=== PATIENT | female | born 1940 ===

== ENCOUNTER 2020-07-03 16:38 | Outpatient (REF) | payer MEDICARE, SELFPAY ==
--- NOTE | 2020-07-03 17:04 | XR_ITS ---
EXAMINATION: XR CHEST CLINICAL INFORMATION: Cough COMPARISON: CXR from 10/12/2019 TECHNIQUE: 2 views of the chest were obtained. FINDINGS: Lungs are symmetrically hypoinflated. This results in crowding of bronchovascular structures in lower lung zones. There are linear opacities of mild atelectasis in the bases. No consolidation or pleural effusion. Cardiac silhouette is normal in size. Dextroscoliosis of the degenerated, hyperkyphotic thoracic spine. Chronic osteoarthritis of bilateral glenohumeral joints. IMPRESSION: * No acute abnormality compared to the prior chest radiograph from 10/12/2019. * Lungs are hypoinflated and, as result, interstitium is suboptimally evaluated. * Linear opacities of mild atelectasis are present in the bases.
--- NOTE | 2020-07-03 17:04 | XR_ITS ---
EXAMINATION: XR FOREARM, LEFT CLINICAL INFORMATION: Unspecified open wound of unspecified forearm. COMPARISON: None TECHNIQUE: AP and lateral views of the left forearm were obtained. FINDINGS: There is no evidence of osseous destruction or periosteal reaction. Normal osseous mineralization. The osseous structures are unremarkable. Elbow joint and wrist joint alignments are maintained with mild degenerative changes. Somewhat H-shaped 0.9 cm opacity is noted projecting over the anterior soft tissue in the mid forearm, on the radial side. No soft tissue air. IMPRESSION: No radiographic evidence of osteomyelitis in the left forearm. No acute fracture or dislocation. Somewhat H-shaped opacity noted projecting over the anterior radial soft tissue may represent a foreign body or vascular/dystrophic calcifications. Recommend clinical correlation.
== END 2020-07-03 16:39 | disposition home or self-care (01) ==
LOC: HO.XRAY 16:38
PROVIDERS: PCP Internal Medicine; Visit Provider Physician Assistant
DX: S51.809A Unspecified open wound of unspecified forearm, initial encounter (principal); R05 Cough
CPT/HCPCS: 71046; 73090

== ENCOUNTER 2020-07-09 12:44 | Outpatient (RCR) | payer MEDICARE, SELFPAY | END 2020-09-05 13:34 | disposition home or self-care (01) | LOC: HO.WCC 12:44 | PROVIDERS: PCP Internal Medicine; Visit Provider Physician Assistant | DX: Z09 Encounter for follow-up examination after completed treatment for conditions other than malignant neoplasm (principal) | CPT/HCPCS: 11042; 11044; 17250; 99212; 99213 ==

== ENCOUNTER 2020-09-26 13:03 | Outpatient (REF) | payer MEDICARE, SELFPAY ==
--- NOTE | 2020-09-26 13:08 | MM_ITS ---
EXAMINATION: MM DIAGNOSTIC DIGITAL MAMMOGRAPHY, BILATERAL US DIAGNOSTIC ULTRASOUND BREAST, LEFT CLINICAL INFORMATION: Current exam is bilateral short interval follow-up. Benign outside upright stereotactic biopsy left breast since prior mammography 2019. Additional calcifications left breast for follow-up. Prior history right mastitis, right symptoms resolved since prior mammography. Currently on antibiotics for new inflammatory symptoms anterior 6:00 left breast. Patient has appointment with surgeon for additional management. The lifetime risk of breast cancer based on the Tyrer-Cuzick Model is 1%. COMPARISON: Mammography: 04/06/2020 (baseline diagnostic), targeted right breast ultrasound 04/06/2020. TECHNIQUE: Digital breast tomosynthesis is performed in both the craniocaudal and mediolateral oblique views along with computer-aided detection (CAD). Synthesized 2D images are generated from the tomosynthesis. Additional views are obtained: Left CC, magnification left CC, magnification left LM. Patient with difficulty holding still for some mammographic images, similar to prior experience. Exam tailored to patient capabilities. Ultrasound left breast is targeted to the area of clinical concern anterior inferior breasts. Grayscale imaging is performed along with harmonics and color Doppler. FINDINGS: There are scattered areas of fibroglandular density (ACR BI-RADS breast composition Category b). Parenchymal pattern is similar to prior exam. There is no interval mass or architectural abnormality or abnormal calcifications. Numerous bilateral calcifications are again seen. There is an old biopsy clip marker posterior central left breast and a new biopsy clip marker posterior upper inner left breast. The left breast calcifications for follow-up posterior central breast appears similar to prior diagnostic exam and will be reassessed again at time of annual bilateral mammography, due in 6 months. Ultrasound targeted to the area of clinical concern anterior inferior left breast demonstrates focal skin thickening with intradermal decreased echogenicity at site of clinical symptoms 6:00 position 4 cm from nipple. The area of involvement measures 3 mm in thickness by 8 x 14 mm. There is hyperemia in the hypoechoic area on color Doppler. There is no subdermal extension. No focal duct ectasia or edema tracking in soft tissue planes. Results are discussed with the patient at time of visit. MM/MM tomosynthesis diagnostic BI IMPRESSION: LEFT -Left breast calcifications for follow-up are stable. -Focal intradermal inflammation at site of symptoms 6:00 position measures 3 x 8 x 14 mm. No subdermal extension. No breast parenchymal abscess. RIGHT: -No mammographic evidence of malignancy. ASSESSMENT: BI-RADS 3: Probably Benign RECOMMENDATION: 1. Clinical follow-up for the anterior left breast intradermal inflammation. Patient has appointment with surgeon. 2. Magnification views left breast at time of annual bilateral mammography due in 6 months to follow-up the probable benign left breast calcifications. This patient's information was entered into a reminder system with a target due date for their next mammogram.
== END 2020-09-26 13:04 | disposition home or self-care (01) ==
LOC: HO.MAMMO 13:03
PROVIDERS: PCP Internal Medicine; Visit Provider Internal Medicine
DX: N61.1 Abscess of the breast and nipple (principal)
CPT/HCPCS: 76642; 77062; 77066

== ENCOUNTER → 2020-10-03 13:53 | Outpatient (BNVA) | payer MEDICARE, SELFPAY | PROVIDERS: PCP Internal Medicine; Visit Provider Surgery | DX: N61.1 Abscess of the breast and nipple (principal) | CPT/HCPCS: 99212 ==

== ENCOUNTER 2020-10-22 06:00 | Day surgery (SDC) | payer MEDICARE, SELFPAY ==
[2020-10-16 11:49] VITALS: BMI 39.9
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
[2020-10-22] VITALS (7 sets, daily range): BP systolic 122–151; BP diastolic 55–69; PULSE 76–84; RESP 16–20; TEMP 36.1–36.7; O2SAT 95–100
[2020-10-22 06:54] LABS: Glucose, Whole Blood 135 mg/dL (60-115)
[2020-10-22] MEDS: Lactated Ringers 1,000 ML 100 ML IVCONT (07:02)
[2020-10-22] MEDS: vancomycin HCL 1,000 MG in 0.9 % Sodium Chloride 250 ML 270 MG IV (07:14)
--- NOTE | 2020-10-22 07:35 | MHC.SHP ---
Pre-Procedural Eval Section A The patient is an INPATIENT: No Changes since office visit: Yes Patient answered all questions; No Cold of Flu in the past 2 weeks, No New Medical Problems and No Changes in Medication The History & Physical has been completed within 30 days and I have reviewed it.: Yes Section B Chief Complaint: Left Breast Abscess Allergies: Allergies Allergy/AdvReac Type Severity Reaction Status Date / Time Penicillins [PENICILLINS] Allergy Unknown UNKNOWN Verified 10/16/20 11:34 Plan Diagnosis/Plan: Unchanged I have reviewed the history and physical and performed a pertinent physical examination on my patient. No changes have occurred unless specified.
--- NOTE | 2020-10-22 08:08 | P.BOP_ITS ---
Brief Operative Note Date of Service: 10/22/20 Pre-op diagnosis: Left breast cyst Post-op diagnosis: same Procedure: Excision of left breast cyst Implants: none Surgeon: Damian Glass MD Anesthesia: GLMA [employer] Handicapper: Niharika Escobar Estimated blood loss (mL): 2 Pathology: other (left breast cyst) Condition: stable Disposition: PACU
--- NOTE | 2020-10-22 08:13 | W.PM.OPN ---
Operative Note Operative Note Date of Service: 10/22/20 Narrative: Preoperative diagnosis: Left breast cyst Postoperative diagnosis: Same Procedure: Excision of left breast skin cyst Surgeon: Damian Glass MD Owner Consulting Engineer: Niharika Escobar PA-C Anesthesia: General LMA Indications for procedure: 80-year-old female patient with history of recurrent skin infections involving the 6 o'clock position of the left breast with persistent drainage from this location. On examination patient has an epidermal inclusion cyst at the 6 o'clock position just below the nipple-areolar complex. The cyst measures approximately 1.5 cm in diameter. Operative findings: Patient is found to have a chronically inflamed cyst in the 6 o'clock position of the left breast. This was widely excised and closed primarily. There is no evidence of active infection at this time. Specimen: Left breast skin cyst Estimated blood loss: 2 mL Complications: None Procedure details: Patient was brought to the OR placed in a supine position. After administering general anesthesia the patient's left breast was prepped with ChloraPrep and draped in a sterile fashion. A surgical time-out was called the consent confirmed. Patient received preoperative antibiotics and Venodyne boots were in place. Local anesthesia consisting of 0.25% Sensorcaine with epinephrine was infiltrated around the cyst in the 6 o'clock position. An elliptical incision was created with a 15 blade oriented transversely. Electrocautery was then used to dissect the lesion from the surrounding subcutaneous tissue. The lesion was passed off the table and sent to pathology for further examination. Hemostasis was then assured using electrocautery. The wounds were irrigated with saline solution and suctioned dry. Dermis was then reapproximated using interrupted 3-0 Polysorb sutures. Skin was then closed using a running subcuticular 4 0 Polysorb suture. Sterile dressings consisting of Steri-Strips 2 x 2 gauze and Tegaderm were then applied. The patient tolerated procedure well. Sponge, instrument, needle counts reported as correct. Patient was transferred to PACU in stable condition.
== END 2020-10-22 09:47 | disposition home or self-care (01) ==
PROVIDERS: PCP Internal Medicine; Visit Provider Surgery
PROC: (CPT 19120; principal; 2020-10-22 07:30)
DX: N60.02 Solitary cyst of left breast (principal); E11.9 Type 2 diabetes mellitus without complications; F03.90 Unspecified dementia, unspecified severity, without behavioral disturbance, psychotic disturbance, mood disturbance, and anxiety; E55.9 Vitamin D deficiency, unspecified; Z79.84 Long term (current) use of oral hypoglycemic drugs; Z79.899 Other long term (current) drug therapy; Z96.653 Presence of artificial knee joint, bilateral; Z91.81 History of falling; Z88.0 Allergy status to penicillin; Z87.891 Personal history of nicotine dependence
CPT/HCPCS: 19120; 82947; 88304; 88305; 88312; J0131; J2405; J3010; J3370

== ENCOUNTER → 2020-10-30 08:56 | Outpatient (BNVA) | payer MEDICARE, SELFPAY | PROVIDERS: PCP Internal Medicine; Visit Provider Surgery | DX: N61.1 Abscess of the breast and nipple (principal) | CPT/HCPCS: 99212 ==

== ENCOUNTER 2020-11-08 10:10 | Outpatient (REF) | payer MEDICARE, SELFPAY ==
[2020-11-08 11:43] LABS: Alanine Aminotransferase 10 U/L (0-31); Albumin Level 4.2 g/dL (3.5-5.0); Alkaline Phosphatase 66 U/L (39-117); Anion Gap 10 (12-20); Aspartate Amino Transferase 14 U/L (5-31); Bilirubin Total 0.4 mg/dL (0.0-1.0); Blood Urea Nitrogen 9 mg/dL (9-16); Calcium 9.1 mg/dL (8.4-10.2); Carbon Dioxide 33 mmol/L (22-29); Chloride 103 mmol/L (96-108); Cholesterol 198 mg/dL; Estimated Glomerular Filt Rate 55; Glucose Fasting 99 mg/dL (60-99); HDL Cholesterol 58 mg/dL; LDL Cholesterol Calculated 112 mg/dl; Potassium 4.1 mmol/L (3.3-5.1); Sodium 142 mmol/L (135-145); Total Protein 6.9 g/dL (6.5-8.0); Triglycerides 141 mg/dL
[2020-11-08 12:02] LABS: Glucose Urine UA NEG (NEG); Leukocyte Esterase Urine 3+ (NEG); Nitrite Urine POS (NEG); PH 6.5 (5.0-8.0); Specific Gravity - Urine 1.015 (1.005-1.025); Urine Blood TRACE (NEG); Urine Ketones NEG (NEG); Urine Protein NEG (NEG-TRACE)
[2020-11-08 12:03] LABS: Appearance Urine CLOUDY; Color Urine YELLOW
[2020-11-08 12:15] LABS: Bacteria Urine 3+ /LPF; Squamous Epithelial Cell Urine 2+ /LPF; WBC Urine TNTC /HPF (0-4)
== END 2020-11-08 10:11 | disposition home or self-care (01) ==
LOC: HO.LAB 10:10
PROVIDERS: PCP Internal Medicine; Visit Provider Nurse Practitioner Family
DX: E11.9 Type 2 diabetes mellitus without complications (principal); E78.5 Hyperlipidemia, unspecified; N39.0 Urinary tract infection, site not specified
CPT/HCPCS: 36415; 80053; 80061; 81001; 81003

== ENCOUNTER 2021-01-15 08:46 | Outpatient (REF) | payer MEDICARE, SELFPAY ==
[2021-01-15 09:19] LABS: MANUAL DIFF FLAG NO
[2021-01-15 09:33] LABS: Basophils Percent Auto 0.4 % (0-2); Eosinophils Absolute Auto 0.5 X10*3/uL (0.0-0.4); Eosinophils Percent Auto 7.1 % (0-4); Hematocrit 36.4 % (37-47); Hemoglobin 11.2 g/dl (12.0-16.0); Imm Gran Abs Auto 0.02 X10*3/uL (0.00-0.03); Imm Gran Pct Auto 0.3 % (0.0-0.4); Lymphocytes Absolute Auto 2.6 X10*3/uL (1.2-4.9); Mean Corpuscular HGB Conc 30.8 g/dl (31.0-35.0); Mean Corpuscular Hemoglobin 28.6 pg (27.0-33.0); Mean Corpuscular Volume 93.1 fL (80-98); Mean Platelet Volume 9.8 fL (9.4-12.3); Monocytes Absolute Auto 0.6 X10*3/uL (0.1-1.2); Monocytes Percent Auto 8.5 % (2-11); NRBC Pct Auto 0.3 /100WBC (0.0-0.2); Neutrophils Absolute Auto 3.3 X10*3/uL (2.0-8.3); Neutrophils Percent Auto 46.7 % (45-73); Platelet Count 293 X10*3/uL (160-400); Red Blood Count 3.91 X10*6/uL (4.20-5.50); White Blood Count 7.1 X10*3/uL (4.8-10.8)
[2021-01-15 09:49] LABS: Alanine Aminotransferase 66 U/L (0-31); Albumin Level 3.9 g/dL (3.5-5.0); Alkaline Phosphatase 115 U/L (39-117); Anion Gap 12 (12-20); Aspartate Amino Transferase 20 U/L (5-31); Bilirubin Total 0.4 mg/dL (0.0-1.0); Blood Urea Nitrogen 17 mg/dL (9-16); Calcium 9.2 mg/dL (8.4-10.2); Carbon Dioxide 31 mmol/L (22-29); Chloride 103 mmol/L (96-108); Cholesterol 173 mg/dL; Estimated Glomerular Filt Rate 45; Glucose Fasting 114 mg/dL (60-99); HDL Cholesterol 46 mg/dL; LDL Cholesterol Calculated 102 mg/dl; Potassium 4.8 mmol/L (3.3-5.1); Sodium 141 mmol/L (135-145); Total Protein 6.7 g/dL (6.5-8.0); Triglycerides 126 mg/dL
[2021-01-15 12:16] LABS: Creatinine Urine 82.08 mg/dL; Microalbum/Creatinine Ratio Ur 12.1 ug/mg cr
[2021-01-16 17:21] LABS: NT-proBNP 60 pg/mL
[2021-01-19 16:52] LABS: Vitamin D 25-OH, D2 39 ng/mL; Vitamin D 25-OH, D3 13 ng/mL; Vitamin D 25-OH, Total 52 ng/mL (30-100)
== END 2021-01-15 08:47 | disposition home or self-care (01) ==
LOC: HO.LAB 08:46
PROVIDERS: PCP Internal Medicine; Visit Provider Internal Medicine
DX: E78.5 Hyperlipidemia, unspecified (principal); E55.9 Vitamin D deficiency, unspecified; D64.9 Anemia, unspecified; R60.0 Localized edema; I10 Essential (primary) hypertension; E11.9 Type 2 diabetes mellitus without complications
CPT/HCPCS: 36415; 80053; 80061; 82043; 82306; 83880; 85025

== ENCOUNTER 2021-04-17 14:05 | Outpatient (RCR) | payer MEDICARE, SELFPAY | END 2021-05-07 15:08 | disposition home or self-care (01) | LOC: HO.WCC 14:05 | PROVIDERS: PCP Internal Medicine; Visit Provider Surgery | DX: S50.852D Superficial foreign body of left forearm, subsequent encounter (principal) | CPT/HCPCS: 11106; 11107; 88305; 88312; 99212; 99214 ==

== ENCOUNTER 2021-04-29 14:11 | Outpatient (REF) | payer MEDICARE, SELFPAY ==
--- NOTE | ~2021-04-29 | MM_ITS ---
EXAMINATION: MM DIAGNOSTIC DIGITAL BREAST TOMOSYNTHESIS, BILATERAL CLINICAL INFORMATION: Benign outside upright stereotactic biopsy left breast. Additional calcifications left breast for follow-up, or initially noted at new baseline 04/06/2020. Due for yearly. TC score under 2%. COMPARISON: Mammography: 09/26/2020, 04/06/2020 (new baseline). TECHNIQUE: Digital breast tomosynthesis is performed in both the craniocaudal and mediolateral oblique views along with computer-aided detection (CAD). Synthesized 2D images are generated from the tomosynthesis. Additional magnification left CC x2, magnification left LM views are obtained. Technically challenging exam requiring 2 technologists to perform exam position patient. Exam tailored to patient capabilities. There is some motion artifact. FINDINGS: There are scattered areas of fibroglandular density (ACR BI-RADS breast composition Category b). Parenchymal pattern is similar to prior study. There is no interval mass or architectural abnormality. Mild bilateral nipple retraction is chronic finding is stable. The right mastitis skin thickening noted in 2019 has resolved. There is an old biopsy clip marker posterior central left breast and a more recent T shaped clip marker posterior left breast from the more recent outside upright stereotactic biopsy. The remaining left breast calcifications for follow-up are without significant change and will be reassessed again at next bilateral annual mammography, due in 12 months. The remainder of the breasts show scattered vascular and round. Some ductal secretory calcifications as before. No significant changes. Results are provided to the patient at time of visit by the technologist. MM/MM tomosynthesis diagnostic BI IMPRESSION: 1. No significant changes from prior exam. 2. Remaining left breast calcifications for follow-up are stable. 3. Patient study limitations, exam tailored to patient capabilities. ASSESSMENT: BI-RADS 3: Probably Benign RECOMMENDATION: Diagnostic mammography at time of next annual exam, due in 12 months. This patient's information was entered into a reminder system with a target due date for their next mammogram.
== END 2021-04-29 14:12 | disposition home or self-care (01) ==
LOC: HO.MAMMO 14:11
PROVIDERS: Visit Provider Internal Medicine
DX: R92.1 Mammographic calcification found on diagnostic imaging of breast (principal)
CPT/HCPCS: 77062; 77066

== ENCOUNTER 2021-09-17 09:47 | Outpatient (REF) | payer MEDICARE, SELFPAY ==
--- NOTE | ~2021-09-17 | US_ITS ---
EXAMINATION: US VENOUS ULTRASOUND WITH DOPPLER LOWER EXTREMITY, RIGHT CLINICAL INFORMATION: Pain in the right lower extremity. COMPARISON: None. TECHNIQUE: Ultrasound of the deep veins is performed from the hip to the calf with compression sonography and color and pulse Doppler assessment. Spectral analysis with color-flow imaging is performed. FINDINGS: There is normal venous compression and respiratory variation and augmented flow. The visualized common femoral vein, superficial femoral vein, profunda femoral vein, and popliteal vein shows no evidence of deep venous thrombosis. Evaluation of the calf veins is suboptimal given overlying subcutaneous edema. There is no significant popliteal fossa cyst. If the patient's symptoms persist, followup ultrasound in 5 days 7 days might be of value to exclude proximal propagation from non-visualized calf veins. US/US venous duplex LE RT IMPRESSION: No DVT demonstrated in the right lower extremity with the caveat of suboptimal evaluation of the calf veins as above. Diffuse subcutaneous edema. Correlate clinically for phlegmonous changes and cellulitis.
== END 2021-09-17 09:48 | disposition home or self-care (01) ==
LOC: HO.US 09:47
PROVIDERS: PCP Internal Medicine; Visit Provider Internal Medicine
DX: M79.604 Pain in right leg (principal); D64.9 Anemia, unspecified; E78.5 Hyperlipidemia, unspecified; E11.9 Type 2 diabetes mellitus without complications; E55.9 Vitamin D deficiency, unspecified
CPT/HCPCS: 93971

== ENCOUNTER 2021-10-22 08:44 | Emergency (ER) | payer MEDICARE, SELFPAY ==
--- NOTE | ~2021-10-22 | CT_ITS ---
EXAMINATION: HEAD CT WITHOUT CONTRAST CLINICAL INFORMATION: Failure to thrive. Lethargy. COMPARISON: Previous head CT February 2020. TECHNIQUE: Axial images through the brain without contrast. Sagittal and coronal reconstructions on the technologist workstation were performed. Patient dose 678 mGy-cm. FINDINGS: There is no evidence of an extra-axial collection. There is no evidence of intra-axial or extra-axial hemorrhage. Ventricles and extra-axial CSF spaces are prominent, suggestive of mild generalized atrophy. There is nonspecific periventricular white matter disease. No mass, mass effect or infarct is seen. Review at bone windows is normal. No skull fracture is seen. Visualized paranasal sinuses, mastoid air cells and middle ears are clear. CT/CT abdomen pelvis w con IMPRESSION: No acute findings. Generalized atrophy and nonspecific periventricular white matter disease.
--- NOTE | ~2021-10-22 | CT_ITS ---
EXAMINATION: HEAD CT WITHOUT CONTRAST CLINICAL INFORMATION: Failure to thrive. Lethargy. COMPARISON: Previous head CT February 2020. TECHNIQUE: Axial images through the brain without contrast. Sagittal and coronal reconstructions on the technologist workstation were performed. Patient dose 678 mGy-cm. FINDINGS: There is no evidence of an extra-axial collection. There is no evidence of intra-axial or extra-axial hemorrhage. Ventricles and extra-axial CSF spaces are prominent, suggestive of mild generalized atrophy. There is nonspecific periventricular white matter disease. No mass, mass effect or infarct is seen. Review at bone windows is normal. No skull fracture is seen. Visualized paranasal sinuses, mastoid air cells and middle ears are clear. CT/CT head/brain wo con IMPRESSION: No acute findings. Generalized atrophy and nonspecific periventricular white matter disease.
--- NOTE | ~2021-10-22 | CT_ITS ---
EXAMINATION: CT CHEST WITH CONTRAST CLINICAL INFORMATION: Failure to thrive. Rule out pneumonia. COMPARISON: Previous chest x-ray most recent June 2020 TECHNIQUE: Multidetector volumetric CT imaging of the chest was obtained after the administration of 85 mL of Omnipaque 350 intravenous contrast without immediate adverse reactions. Axial MIP volume rendering provided. Sagittal and coronal reformatted images were obtained. This CT examination was performed using dose optimization techniques as appropriate, variously including the following: *Automated exposure control *Adjustment of mA and/or kV according to patient size (this includes techniques or standardized protocols for targeted exams where dose is matched to indication/reason for exam; i.e. extremities or head) *Use of iterative reconstruction technique DLP: 381 mGy-cm FINDINGS: LUNGS: Evaluation of the lungs is limited due to artifact from respiratory motion. The lungs are clear. There is no evidence of pneumonia. MEDIASTINUM: The heart does not appear enlarged. There is no pericardial effusion. The thoracic aorta is tortuous. The ascending thoracic aorta is upper normal in size measuring 4 cm. There are no enlarged hilar or mediastinal lymph nodes. There may be a small esophageal hernia. PLEURA: There is no pleural effusion. No pleural mass or thickening. AXILLA: There are small bilateral axillary lymph nodes. No enlarged axillary lymph nodes or chest wall mass is seen. OSSEOUS STRUCTURES: There is increased thoracic kyphosis. There are degenerative changes of the thoracic spine. CT/CT chest w con IMPRESSION: Limited exam due to respiratory motion. No evidence of pneumonia. Fleischner guidelines were followed.
[2021-10-22 08:46] VITALS: BP 160/97; PULSE 93; RESP 18; TEMP 36.8; O2SAT 98; BMI 38.0
[2021-10-22 09:45] LABS: MANUAL DIFF FLAG NO
[2021-10-22 09:49] LABS: Basophils Percent Auto 0.4 % (0-2); Eosinophils Absolute Auto 0.3 X10*3/uL (0.0-0.4); Eosinophils Percent Auto 3.2 % (0-4); Hematocrit 35.2 % (37.0-47.0); Hemoglobin 10.9 g/dl (12.0-16.0); Imm Gran Abs Auto 0.03 X10*3/uL (0.00-0.03); Imm Gran Pct Auto 0.4 % (0.0-0.4); Lymphocytes Percent Auto 24.6 % (20-40); Mean Corpuscular Hemoglobin 28.1 pg (27.0-33.0); Mean Corpuscular Volume 90.7 fL (80.0-98.0); Mean Platelet Volume 9.7 fL (9.4-12.3); Monocytes Absolute Auto 0.8 X10*3/uL (0.1-1.2); Monocytes Percent Auto 9.4 % (2-11); Platelet Count 440 X10*3/uL (160-400); Red Blood Count 3.88 X10*6/uL (4.20-5.50); Red Cell Distribution Width 13.2 % (11.0-16.0); White Blood Count 8.1 X10*3/uL (4.8-10.8)
--- NOTE | 2021-10-22 10:01 | ECG_ITS ---
Test Reason : not eating/ no urination Blood Pressure : / mmHG Vent. Rate : 078 BPM Atrial Rate : 078 BPM P-R Int : 160 ms QRS Dur : 096 ms QT Int : 378 ms P-R-T Axes : 001 -23 056 degrees QTc Int : 430 ms Normal sinus rhythm Moderate voltage criteria for LVH, may be normal variant ( R in aVL , Steven product ) Abnormal ECG When compared with ECG of 12-OCT-2019 17:34, No significant changes seen Referred By: Harvey Ly Electronically Signed By:IRENE NGUYỄN
[2021-10-22 10:05] LABS: INTERNATIONAL NORM RATIO 1.2 (0.9-1.1); Prothrombin Time 13.8 SEC (9.9-13.0)
[2021-10-22 10:06] LABS: Alanine Aminotransferase 8 U/L (0-31); Albumin Level 3.9 g/dL (3.5-5.0); Alkaline Phosphatase 51 U/L (39-117); Anion Gap 17 (12-20); Aspartate Amino Transferase 16 U/L (5-31); Bilirubin Total 0.3 mg/dL (0.0-1.0); Blood Urea Nitrogen 16 mg/dL (9-16); Calcium 9.7 mg/dL (8.4-10.2); Carbon Dioxide 24 mmol/L (22-29); Chloride 103 mmol/L (96-108); Creatinine Clr Calc Pharmacy 34.3; Estimated Glomerular Filt Rate 40; Glucose Random 107 mg/dL (60-115); Potassium 4.2 mmol/L (3.3-5.1); Sodium 140 mmol/L (135-145); Total Protein 7.6 g/dL (6.5-8.0)
[2021-10-22 10:08] LABS: Partial Thromboplastin Time 36.2 SEC (24.1-38.0)
[2021-10-22 10:13] LABS: COVID-19 Test Negative (Negative); IDNOW Serial# 9DD0AD1C
--- NOTE | 2021-10-22 10:22 | PC.NURSE ---
Pt received: Pt hx of dementia and AOX2-3 with intermittent confusion. Daughter at bedside for translation and for orientation of pt. Heart sounds normal and lungs diminished. Pt abd soft and non-tender. Pt c/o gelatin like stool. Occult blood stool sent. Pending urine sample.
[2021-10-22 10:24] LABS: OBS Int Ctl Valid YES; OBS1 NEGATIVE (NEGATIVE)
[2021-10-22] MEDS: 0.9 % Sodium Chloride 1,000 ML 999 ML IV ×2 (10:24→11:02)
[2021-10-22 10:28] LABS: Magnesium 1.9 mg/dL (1.6-2.6)
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
[2021-10-22 10:47] LABS: Troponin-I High Sensitivity 7.1 ng/L (<3.5-17.0)
[2021-10-22] MEDS: iohexoL 350 MG/ML 100 ML INFUS..BTL 85 ML IV (10:56)
[2021-10-22 11:38] LABS: Appearance Urine HAZY; Color Urine YELLOW; Glucose Urine UA NEG (NEG); Leukocyte Esterase Urine TRACE (NEG); Nitrite Urine POS (NEG); PH 5.5 (5.0-8.0); UACC Culture Trigger YES; Urine Blood NEG (NEG); Urine Ketones 15 MG/DL (NEG); Urine Protein TRACE MG/DL (NEG-TRACE)
[2021-10-22 11:58] LABS: Bacteria Urine 3+ /LPF; RBC Urine 0 /HPF (0); Squamous Epithelial Cell Urine 2+ /LPF; WBC Urine 30-49 /HPF (0-4)
[2021-10-22 12:10] VITALS: BP 155/54; PULSE 72; RESP 17; O2SAT 98
[2021-10-22 15:40] LABS: Glucose, Whole Blood 86 mg/dL (60-115)
[2021-10-22 15:55] LABS: Troponin-I High Sensitivity 7.4 ng/L (<3.5-17.0)
[2021-10-22 16:23] VITALS: BP 151/52; PULSE 67; RESP 16; O2SAT 97
== END 2021-10-22 18:48 | disposition home or self-care (01) ==
PROVIDERS: Physician Assistant; Emergency Provider Emergency Medicine Emergency Medical Services; PCP Internal Medicine
DX: N39.0 Urinary tract infection, site not specified (principal); K52.9 Noninfective gastroenteritis and colitis, unspecified; R62.7 Adult failure to thrive; M54.50 Low back pain, unspecified; Z20.822 Contact with and (suspected) exposure to COVID-19; E11.9 Type 2 diabetes mellitus without complications; I10 Essential (primary) hypertension; F03.90 Unspecified dementia, unspecified severity, without behavioral disturbance, psychotic disturbance, mood disturbance, and anxiety
CPT/HCPCS: 36415; 70450; 71260; 74177; 80053; 81001; 81003; 82272; 82550; 82947; 83735; 84484; 85025; 85610; 85730; 87086; 87088; 87186; 87635; 93005; 96360; 99284; Q9967

== ENCOUNTER 2021-11-05 09:35 | Outpatient (REF) | payer MEDICARE, SELFPAY ==
--- NOTE | ~2021-11-05 | XR_ITS ---
EXAMINATION: XR KNEE, RIGHT CLINICAL INFORMATION: Pain right knee. COMPARISON: None. TECHNIQUE: 3 views of the right knee. FINDINGS: There is a total right knee prosthesis with prosthetic components in satisfactory alignment. There are 2 cerclage wires along the proximal tibia. No abnormal joint effusion. The soft tissues are normal. XR/XR knee RT 2V IMPRESSION: Total right knee prosthesis in satisfactory alignment. No abnormal joint effusion or loose body seen.
[2021-11-05 10:03] LABS: MANUAL DIFF FLAG NO
[2021-11-05 10:16] LABS: Basophils Percent Auto 0.4 % (0-2); Eosinophils Absolute Auto 0.4 X10*3/uL (0.0-0.4); Eosinophils Percent Auto 5.5 % (0-4); Hematocrit 36.2 % (37.0-47.0); Hemoglobin 11.1 g/dl (12.0-16.0); Imm Gran Abs Auto 0.02 X10*3/uL (0.00-0.03); Imm Gran Pct Auto 0.3 % (0.0-0.4); Lymphocytes Absolute Auto 2.4 X10*3/uL (1.2-4.9); Lymphocytes Percent Auto 31.3 % (20-40); Mean Corpuscular HGB Conc 30.7 g/dl (31.0-35.0); Mean Corpuscular Hemoglobin 27.6 pg (27.0-33.0); Monocytes Absolute Auto 0.5 X10*3/uL (0.1-1.2); Monocytes Percent Auto 6.3 % (2-11); Neutrophils Absolute Auto 4.4 x10*3/uL (2.0-8.3); Neutrophils Percent Auto 56.2 % (45-73); Platelet Count 380 X10*3/uL (160-400); Red Blood Count 4.02 X10*6/uL (4.20-5.50); Red Cell Distribution Width 14.3 % (11.0-16.0); White Blood Count 7.8 X10*3/uL (4.8-10.8)
[2021-11-05 11:01] LABS: Alanine Aminotransferase 7 U/L (0-31); Albumin Level 3.7 g/dL (3.5-5.0); Alkaline Phosphatase 52 U/L (39-117); Anion Gap 12 (12-20); Aspartate Amino Transferase 12 U/L (5-31); Bilirubin Total 0.4 mg/dL (0.0-1.0); Blood Urea Nitrogen 11 mg/dL (9-16); Calcium 9.5 mg/dL (8.4-10.2); Carbon Dioxide 29 mmol/L (22-29); Chloride 103 mmol/L (96-108); Cholesterol 188 mg/dL; Estimated Glomerular Filt Rate 50; Glucose Fasting 129 mg/dL (60-99); HDL Cholesterol 45 mg/dL; LDL Cholesterol Calculated 115 mg/dl; Potassium 4.1 mmol/L (3.3-5.1); Sodium 140 mmol/L (135-145); Total Protein 6.9 g/dL (6.5-8.0); Triglycerides 144 mg/dL
[2021-11-10 15:56] LABS: Vitamin D 25-OH, D2 63 ng/mL; Vitamin D 25-OH, D3 15 ng/mL; Vitamin D 25-OH, Total 78 ng/mL (30-100)
== END 2021-11-05 09:36 | disposition home or self-care (01) ==
LOC: HO.XRAY 09:35
PROVIDERS: PCP Internal Medicine; Visit Provider Internal Medicine
DX: D64.9 Anemia, unspecified (principal); E78.5 Hyperlipidemia, unspecified; E11.9 Type 2 diabetes mellitus without complications; R30.0 Dysuria; M25.561 Pain in right knee; I10 Essential (primary) hypertension; E55.9 Vitamin D deficiency, unspecified; M79.604 Pain in right leg
CPT/HCPCS: 36415; 73560; 80053; 80061; 82306; 85025

== ENCOUNTER 2022-04-09 00:04 | Emergency (ER) | payer MEDICARE, SELFPAY ==
[2022-04-09 00:10] VITALS: BP 147/69; PULSE 79; RESP 16; TEMP 36.5; O2SAT 96; BMI 37.2
[2022-04-09 00:40] LABS: MANUAL DIFF FLAG NO
[2022-04-09 00:41] LABS: Basophils Percent Auto 0.5 % (0-2); Eosinophils Absolute Auto 0.4 X10*3/uL (0.0-0.4); Eosinophils Percent Auto 4.6 % (0-4); Hematocrit 35.1 % (37.0-47.0); Imm Gran Abs Auto 0.05 X10*3/uL (0.00-0.03); Imm Gran Pct Auto 0.6 % (0.0-0.4); Lymphocytes Absolute Auto 2.8 X10*3/uL (1.2-4.9); Lymphocytes Percent Auto 32.4 % (20-40); Mean Corpuscular HGB Conc 31.3 g/dl (31.0-35.0); Mean Corpuscular Hemoglobin 28.6 pg (27.0-33.0); Mean Corpuscular Volume 91.2 fL (80.0-98.0); Mean Platelet Volume 9.8 fL (9.4-12.3); Monocytes Absolute Auto 0.5 X10*3/uL (0.1-1.2); Neutrophils Absolute Auto 4.8 x10*3/uL (2.0-8.3); Neutrophils Percent Auto 55.9 % (45-73); Platelet Count 332 X10*3/uL (160-400); Red Blood Count 3.85 X10*6/uL (4.20-5.50); Red Cell Distribution Width 13.2 % (11.0-16.0); White Blood Count 8.6 X10*3/uL (4.8-10.8)
[2022-04-09 00:58] LABS: Alanine Aminotransferase 13 U/L (0-31); Albumin Level 4.1 g/dL (3.5-5.0); Alkaline Phosphatase 96 U/L (39-117); Anion Gap 13 (12-20); Aspartate Amino Transferase 14 U/L (5-31); Bilirubin Direct < 0.2 mg/dL (0.0-0.5); Bilirubin Total 0.2 mg/dL (0.0-1.0); Blood Urea Nitrogen 17 mg/dL (9-16); Calcium 8.8 mg/dL (8.4-10.2); Carbon Dioxide 29 mmol/L (22-29); Chloride 101 mmol/L (96-108); Creatinine Clr Calc Pharmacy 35.3; Estimated Glomerular Filt Rate 41; Glucose Random 196 mg/dL (60-115); Lipase 26 U/L (8-78); Potassium 3.8 mmol/L (3.3-5.1); Sodium 139 mmol/L (135-145); Total Protein 7.2 g/dL (6.5-8.0)
[2022-04-09 02:08] LABS: Appearance Urine HAZY; Color Urine STRAW; Glucose Urine UA NEG (NEG); Leukocyte Esterase Urine 3+ (NEG); Nitrite Urine POS (NEG); Specific Gravity - Urine <= 1.005 (1.005-1.025); UACC Culture Trigger YES; Urine Blood NEG (NEG); Urine Ketones NEG (NEG); Urine Protein NEG (NEG-TRACE)
[2022-04-09 02:27] LABS: Bacteria Urine 2+ /LPF; Mucus Urine TRACE /LPF; RBC Urine 0 /HPF (0); Squamous Epithelial Cell Urine TRACE /LPF
== END 2022-04-09 07:18 | disposition left against medical advice (07) ==
PROVIDERS: Emergency Provider Emergency Medicine; PCP Internal Medicine
DX: R10.31 Right lower quadrant pain (principal); R30.0 Dysuria; Z79.899 Other long term (current) drug therapy
CPT/HCPCS: 36415; 80053; 81001; 82248; 83690; 85025; 87086; 87088; 87186; 99282; 99283

== ENCOUNTER 2022-04-30 12:57 | Outpatient (REF) | payer MEDICARE, SELFPAY ==
--- NOTE | ~2022-04-30 | MM_ITS ---
EXAMINATION: MM DIAGNOSTIC DIGITAL BREAST TOMOSYNTHESIS, BILATERAL CLINICAL INFORMATION: Due for yearly. History benign outside upright stereotactic biopsy at [facility] 05/09/2020. Follow-up remaining calcifications. The lifetime risk of breast cancer based on the Tyrer-Cuzick Model is 1%. COMPARISON: Mammography: 04/29/2021, 09/26/2020, 04/06/2020 (diagnostic, new baseline). TECHNIQUE: Digital breast tomosynthesis is performed in both the craniocaudal and mediolateral oblique views along with computer-aided detection (CAD). Synthesized 2D images are generated from the tomosynthesis. Additional bilateral exaggerated CC and views are obtained. Magnification views left breast also obtained in the ML and MLO views. The magnification views are limited, showing motion. Technologist notes patient declined additional views. FINDINGS: There are scattered areas of fibroglandular density (ACR BI-RADS breast composition Category b). Parenchymal pattern is similar to prior studies and there is no developing density or architectural abnormality or interval significant mass. There is no skin thickening or coarsening of the Jonh's ligaments. Again, there are 2 biopsy clip markers left breast. Scattered vascular and round and coarse calcifications are again seen and benign dystrophic calcifications posterior 12:00 right breast. There are some fine punctate calcifications central left breast, no significant changes and now considered benign. Results are provided to the patient at time of visit by the technologist. MM/MM tomosynthesis diagnostic BI IMPRESSION: No significant changes from prior studies. ASSESSMENT: BI-RADS 2: Benign RECOMMENDATION: Routine annual mammography screening. This patient's information was entered into a reminder system with a target due date for their next mammogram.
== END 2022-04-30 12:58 | disposition home or self-care (01) ==
LOC: HO.MAMMO 12:57
PROVIDERS: PCP Internal Medicine; Visit Provider Internal Medicine
DX: R92.1 Mammographic calcification found on diagnostic imaging of breast (principal)
CPT/HCPCS: 77062; 77066

== ENCOUNTER 2022-07-17 10:10 | Outpatient (REF) | payer OTHER, SELFPAY ==
[2022-07-17 11:57] LABS: Alanine Aminotransferase 7 U/L (0-31); Albumin Level 4.1 g/dL (3.5-5.0); Alkaline Phosphatase 70 U/L (39-117); Anion Gap 15 (12-20); Aspartate Amino Transferase 16 U/L (5-31); Bilirubin Total 0.2 mg/dL (0.0-1.0); Blood Urea Nitrogen 16 mg/dL (9-16); Calcium 9.4 mg/dL (8.4-10.2); Carbon Dioxide 28 mmol/L (22-29); Chloride 101 mmol/L (96-108); Cholesterol 193 mg/dL; Estimated Glomerular Filt Rate 44; Glucose Fasting 106 mg/dL (60-99); HDL Cholesterol 61 mg/dL; LDL Cholesterol Calculated 112 mg/dl; Potassium 4.1 mmol/L (3.3-5.1); Sodium 140 mmol/L (135-145); Total Protein 7.1 g/dL (6.5-8.0); Triglycerides 103 mg/dL
[2022-07-17 14:02] LABS: Creatinine Urine 163.91 mg/dL; Microalbum/Creatinine Ratio Ur 23.7 ug/mg cr
== END 2022-07-17 10:11 | disposition home or self-care (01) ==
LOC: HO.LAB 10:10
PROVIDERS: PCP Internal Medicine; Visit Provider Internal Medicine
DX: E78.5 Hyperlipidemia, unspecified (principal); E11.9 Type 2 diabetes mellitus without complications
CPT/HCPCS: 36415; 80053; 80061; 82043

== ENCOUNTER 2022-07-31 06:09 | Outpatient (REF) | payer OTHER, SELFPAY ==
--- NOTE | ~2022-07-31 | XR_ITS ---
EXAMINATION: BILATERAL KNEES CLINICAL INFORMATION: Pain COMPARISON: 11/05/2021 and 05/26/2019 TECHNIQUE: AP bilateral weightbearing and bilateral knees and lateral sunrise and AP views. FINDINGS: Patient is status post bilateral total knee replacement with cerclage wires seen in the right tibia. The position of hardware is stable. There is no fractures. On the left there is heterotopic bone formation adjacent to the patella on the right there is patellar spurring. There is no joint effusion XR/XR knee LT 2V IMPRESSION: Well-positioned bilateral knee prosthesis
--- NOTE | ~2022-07-31 | XR_ITS ---
EXAMINATION: BILATERAL KNEES CLINICAL INFORMATION: Pain COMPARISON: 11/05/2021 and 05/26/2019 TECHNIQUE: AP bilateral weightbearing and bilateral knees and lateral sunrise and AP views. FINDINGS: Patient is status post bilateral total knee replacement with cerclage wires seen in the right tibia. The position of hardware is stable. There is no fractures. On the left there is heterotopic bone formation adjacent to the patella on the right there is patellar spurring. There is no joint effusion XR/XR knee standing BI IMPRESSION: Well-positioned bilateral knee prosthesis
--- NOTE | ~2022-07-31 | XR_ITS ---
EXAMINATION: BILATERAL KNEES CLINICAL INFORMATION: Pain COMPARISON: 11/05/2021 and 05/26/2019 TECHNIQUE: AP bilateral weightbearing and bilateral knees and lateral sunrise and AP views. FINDINGS: Patient is status post bilateral total knee replacement with cerclage wires seen in the right tibia. The position of hardware is stable. There is no fractures. On the left there is heterotopic bone formation adjacent to the patella on the right there is patellar spurring. There is no joint effusion XR/XR knee RT 2V IMPRESSION: Well-positioned bilateral knee prosthesis
== END 2022-07-31 06:10 | disposition home or self-care (01) ==
LOC: HO.HOSX 06:09
PROVIDERS: Visit Provider Physician Assistant
DX: Z96.653 Presence of artificial knee joint, bilateral (principal)
CPT/HCPCS: 73560; 73565; 99212

== ENCOUNTER 2022-11-26 15:14 | Outpatient (REF) | payer OTHER, SELFPAY ==
[2022-11-26 15:46] LABS: Appearance Urine Cloudy; Color Urine Yellow; Glucose Urine UA Negative (Negative); Leukocyte Esterase Urine Large (3+) (Negative); Nitrite Urine Positive (Negative); UMIC TRIGGER UACC YES; Urine Blood Negative (Negative); Urine Ketones Negative (Negative); Urine Protein Negative (Neg-Trace)
[2022-11-26 15:51] LABS: Bacteria Urine 4+ (None Seen); Hyaline Casts Urine 0-2 /LPF (0-2); RBC Urine 0-2 /HPF (0-2); Squamous Epithelial Cell Urine 0-2 /HPF (0-2); UACC Culture Trigger YES; WBC Urine 21-50 /HPF (0-5)
[2022-11-26 17:03] LABS: Creatinine Urine 73.58 mg/dL; Microalbum/Creatinine Ratio Ur 20.3 ug/mg cr
== END 2022-11-26 15:15 | disposition home or self-care (01) ==
LOC: HO.LNP 15:14
PROVIDERS: Visit Provider Internal Medicine
DX: E11.9 Type 2 diabetes mellitus without complications (principal); R82.90 Unspecified abnormal findings in urine
CPT/HCPCS: 81001; 82043; 87086; 87088; 87186

== ENCOUNTER 2023-01-13 13:51 | Outpatient (REF) | payer OTHER, SELFPAY ==
--- NOTE | ~2023-01-13 | XR_ITS ---
EXAMINATION: XR chest 2V CLINICAL INFORMATION: Cough COMPARISON: Prior chest x-ray 07/03/2020 TECHNIQUE: XR chest 2V Limited lateral view obscured by the arms and kyphosis. Lungs and Diane: Diffuse increased interstitial lung marking and peribronchial cuffing might be a small airway disease such as bronchiolitis or interstitial pneumonitis, versus interstitial lung disease versus interstitial edema. No dense focal consolidation pneumonia. Pleura: Normal. Costophrenic angles are sharp. No pneumothorax. Heart: The heart is normal in size. Mediastinum: Enlarged right hilum, this could be vascular, cannot rule out hilar mass, more prominent on today's exam.. Bones: Skeletal structures included are normal for patient's age. XR/XR chest 2V IMPRESSION: * Diffuse increased interstitial lung marking and peribronchial cuffing might be a small airway disease such as bronchiolitis or interstitial pneumonitis, versus interstitial lung disease versus interstitial edema. No dense focal consolidation pneumonia. * Enlarged right hilum, cannot rule out hilar mass. Consider correlation with follow-up contrast enhanced CT scan chest. * No pleural effusion. * Limited lateral view. (Referring physician staff is being called, by physician staff assistance, to be alerted of the above critical findings and recommendations.) FO 01/13/2023 4:09 PM
== END 2023-01-13 13:52 | disposition home or self-care (01) ==
LOC: HO.HMGCX 13:51
PROVIDERS: PCP Internal Medicine; Visit Provider Internal Medicine
DX: R05.9 Cough, unspecified (principal)
CPT/HCPCS: 71046

== ENCOUNTER 2023-03-02 14:47 | Outpatient (REF) | payer OTHER, SELFPAY ==
[2023-03-03 06:23] LABS: Creatinine POC 0.7 mg/dL (0.5-1.4); GFR POC > 60
== END 2023-03-02 14:48 | disposition home or self-care (01) ==
LOC: HO.CT 14:47
PROVIDERS: PCP Internal Medicine; Visit Provider Internal Medicine
DX: R91.8 Other nonspecific abnormal finding of lung field (principal)
CPT/HCPCS: 82565

== ENCOUNTER 2023-04-15 09:59 | Outpatient (REF) | payer OTHER, SELFPAY ==
--- NOTE | ~2023-04-15 | CT_ITS ---
EXAMINATION: CT CHEST WITHOUT CONTRAST CLINICAL INFORMATION: Follow-up findings on chest radiograph from 01/13/2023 of prominent interstitial markings and prominent right hilum COMPARISON: Chest radiograph from 01/13/[address] of the chest from 10/22/2021 TECHNIQUE: Multidetector volumetric CT imaging of the chest was done. Axial MIP volume rendering provided. Sagittal and coronal reformatted images were obtained. This CT examination was performed using dose optimization techniques as appropriate, variously including the following: *Automated exposure control *Adjustment of mA and/or kV according to patient size (this includes techniques or standardized protocols for targeted exams where dose is matched to indication/reason for exam; i.e. extremities or head) *Use of iterative reconstruction technique DLP: 266 mGy-cm FINDINGS: INFORMATION TECHNOLOGY ADMINISTRATOR: There is widening of mediastinum LUNGS: Evaluation is limited due to motion artifact. There are no obvious nodules, consolidations, masses. There are mild changes of centrilobular emphysema MEDIASTINUM: There is cardiomegaly. Ascending aorta is ectatic measured 4.2 cm. Pulmonary artery is prominent measured 4.1 cm. There is no pericardial effusion. CORONARY ARTERY CALCIFICATION: There are mild coronary artery calcifications seen. PLEURA: There is no pleural effusion. No pleural mass or thickening. AXILLA: No lymphadenopathy. UPPER ABDOMEN: Unremarkable. OSSEOUS STRUCTURES: There is kyphotic deformity of thoracic spine Mild multilevel degenerative changes. CT/CT chest wo IV con IMPRESSION: 1. Limited study due to motion artifact and noncontrast technique. 2. Cardiomegaly. 3. Ectatic ascending aorta and pulmonary artery. 4. Mild changes of centrilobular emphysema. Fleischner guidelines were followed.
== END 2023-04-15 10:00 | disposition home or self-care (01) ==
LOC: HO.CT 09:59
PROVIDERS: Visit Provider Internal Medicine
DX: R91.8 Other nonspecific abnormal finding of lung field (principal)
CPT/HCPCS: 71250

== ENCOUNTER 2023-07-02 22:05 | Emergency (ER) | payer OTHER, SELFPAY ==
--- NOTE | ~2023-07-02 | CT_ITS ---
EXAMINATION: CT HEAD WITHOUT CONTRAST CLINICAL INFORMATION: New onset headache with dementia COMPARISON: 10.22.2021 TECHNIQUE: Contiguous axial imaging was performed from the skull base to vertex without intravenous administration of contrast. This CT examination was performed using dose optimization techniques as appropriate, variously including the following: *Automated exposure control *Adjustment of mA and/or kV according to patient size (this includes techniques or standardized protocols for targeted exams where dose is matched to indication/reason for exam; i.e. extremities or head) *Use of iterative reconstruction technique DLP: 727 mGy-cm FINDINGS: There is no evidence of acute intracranial hemorrhage or territorial infarction. No abnormal mass effect or midline shift is seen. Lehman to white matter differentiation is well preserved. No extra-axial fluid collections are identified. No hydrocephalus. Proportional prominence of the ventricles and sulcal spaces is consistent with mild volume loss. Patchy periventricular and deep white matter hypoattenuation is consistent with mild small vessel ischemic changes. No acute osseous or soft tissue abnormality. The mastoid air cells and visualized portions of the paranasal sinuses are well aerated. CT/CT head/brain wo IV con IMPRESSION: No acute intracranial pathology.
[2023-07-02 22:27] VITALS: BP 125/55; PULSE 71; RESP 20; TEMP 37.1; O2SAT 96; BMI 37.8
[2023-07-02 23:11] LABS: Hematocrit 35.2 % (37.0-47.0); Hemoglobin 11.1 g/dl (12.0-16.0); Mean Corpuscular HGB Conc 31.5 g/dl (31.0-35.0); Mean Corpuscular Hemoglobin 29.4 pg (27.0-33.0); Mean Corpuscular Volume 93.4 fL (80.0-98.0); Mean Platelet Volume 10.5 fL (9.4-12.3); Platelet Count 213 X10*3/uL (160-400); Red Blood Count 3.77 X10*6/uL (4.20-5.50); Red Cell Distribution Width 13.1 % (11.0-16.0); White Blood Count 8.6 X10*3/uL (4.8-10.8)
[2023-07-02 23:15] LABS: Alanine Aminotransferase 6 U/L (0-31); Alkaline Phosphatase 76 U/L (39-117); Anion Gap 16 (12-20); Aspartate Amino Transferase 12 U/L (5-31); Bilirubin Total 0.2 mg/dL (0.0-1.0); Blood Urea Nitrogen 23 mg/dL (9-16); Calcium 9.1 mg/dL (8.4-10.2); Carbon Dioxide 24 mmol/L (22-29); Chloride 105 mmol/L (96-108); Creatinine Clr Calc Pharmacy 34.9; Estimated Glomerular Filt Rate 41; Glucose Random 121 mg/dL (60-115); Potassium 4.1 mmol/L (3.3-5.1); Sodium 141 mmol/L (135-145); Total Protein 7.4 g/dL (6.5-8.0)
[2023-07-03 00:11] LABS: Glucose, Whole Blood 93 mg/dL (60-115)
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
== END 2023-07-03 02:02 | disposition home or self-care (01) ==
PROVIDERS: Emergency Provider Internal Medicine; PCP Internal Medicine
DX: R51.9 Headache, unspecified (principal); E11.9 Type 2 diabetes mellitus without complications; I10 Essential (primary) hypertension; F03.90 Unspecified dementia, unspecified severity, without behavioral disturbance, psychotic disturbance, mood disturbance, and anxiety; Z79.899 Other long term (current) drug therapy; Z87.891 Personal history of nicotine dependence
CPT/HCPCS: 36415; 70450; 80053; 82947; 85027; 99282; 99284

== ENCOUNTER 2023-07-22 14:38 | Outpatient (AMB) | payer OTHER, SELFPAY ==
[2023-07-22 14:44] VITALS: BP 130/80
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
== END 2023-07-22 15:10 | disposition home or self-care (01) ==
PROVIDERS: PCP Internal Medicine; Visit Provider Internal Medicine
DX: E11.9 Type 2 diabetes mellitus without complications (principal)
CPT/HCPCS: 83036; 90471; 90686; 99214

== ENCOUNTER 2023-11-26 13:46 | Outpatient (AMB) | payer OTHER, SELFPAY ==
[2023-11-26 13:49] VITALS: BP 124/76
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
== END 2023-11-26 14:33 | disposition home or self-care (01) ==
PROVIDERS: PCP Internal Medicine; Visit Provider Internal Medicine
DX: E11.9 Type 2 diabetes mellitus without complications (principal); G30.9 Alzheimer's disease, unspecified; F02.80 Dementia in other diseases classified elsewhere, unspecified severity, without behavioral disturbance, psychotic disturbance, mood disturbance, and anxiety; I10 Essential (primary) hypertension; E78.5 Hyperlipidemia, unspecified
CPT/HCPCS: 83036; 99214

== ENCOUNTER 2024-05-30 14:48 | Outpatient (AMB) | payer OTHER, SELFPAY ==
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
[2024-05-30 15:01] VITALS: BP 132/70
== END 2024-05-30 15:32 | disposition home or self-care (01) ==
PROVIDERS: PCP Internal Medicine; Visit Provider Internal Medicine
DX: G30.9 Alzheimer's disease, unspecified (principal); F02.80 Dementia in other diseases classified elsewhere, unspecified severity, without behavioral disturbance, psychotic disturbance, mood disturbance, and anxiety; E78.5 Hyperlipidemia, unspecified; E11.9 Type 2 diabetes mellitus without complications; I10 Essential (primary) hypertension
CPT/HCPCS: 83036; 99214; G2211

== ENCOUNTER 2024-08-09 10:09 | Outpatient (REF) | payer OTHER, SELFPAY ==
[2024-08-09 10:33] LABS: MANUAL DIFF FLAG NO
[2024-08-09 11:19] LABS: Basophils Percent Auto 0.4 % (0-2); Eosinophils Absolute Auto 0.3 X10*3/uL (0.0-0.4); Eosinophils Percent Auto 3.6 % (0-4); Hematocrit 36.9 % (37.0-47.0); Hemoglobin 11.6 g/dl (12.0-16.0); Imm Gran Abs Auto 0.02 X10*3/uL (0.00-0.03); Imm Gran Pct Auto 0.3 % (0.0-0.4); Lymphocytes Absolute Auto 2.1 X10*3/uL (1.2-4.9); Mean Corpuscular HGB Conc 31.4 g/dl (31.0-35.0); Mean Corpuscular Hemoglobin 29.1 pg (27.0-33.0); Mean Corpuscular Volume 92.5 fL (80.0-98.0); Mean Platelet Volume 10.2 fL (9.4-12.3); Monocytes Absolute Auto 0.5 X10*3/uL (0.1-1.2); Monocytes Percent Auto 6.8 % (2-11); Neutrophils Percent Auto 62.9 % (45-73); Platelet Count 245 X10*3/uL (160-400); Red Blood Count 3.99 X10*6/uL (4.20-5.50); Red Cell Distribution Width 14.1 % (11.0-16.0)
[2024-08-09 12:02] LABS: Alanine Aminotransferase 13 U/L (0-31); Albumin Level 3.9 g/dL (3.5-5.0); Alkaline Phosphatase 77 U/L (39-117); Anion Gap 10 (12-20); Aspartate Amino Transferase 16 U/L (5-31); Bilirubin Total 0.3 mg/dL (0.0-1.0); Blood Urea Nitrogen 22 mg/dL (9-16); Calcium 9.1 mg/dL (8.4-10.2); Carbon Dioxide 29 mmol/L (22-29); Chloride 109 mmol/L (96-108); Cholesterol 137 mg/dL (<200); Estimated Glomerular Filt Rate 39; Glucose Fasting 119 mg/dL (60-99); HDL Cholesterol 72 mg/dL (>40); Iron 50 mcg/dL (30-160); LDL Cholesterol Calculated 56 mg/dL (<100); Percent Iron Saturation 18 % (15-50); Potassium 3.8 mmol/L (3.3-5.1); Sodium 144 mmol/L (135-145); Total Iron Binding Capacity 275 mcg/dL (228-428); Total Protein 7.3 g/dL (6.5-8.0); Triglycerides 49 mg/dL (<150); Unsaturated Iron Binding 225 ug/dL
[2024-08-09 12:03] LABS: Vitamin D 25-OH Total 35.5 ng/mL (>30)
[2024-08-09 12:04] LABS: Folate 12.2 ng/mL (> or = 4.0); Vitamin B12 915 pg/mL (200-900)
== END 2024-08-09 10:10 | disposition home or self-care (01) ==
LOC: HO.LAB 10:09
PROVIDERS: PCP Internal Medicine; Visit Provider Internal Medicine
DX: E55.9 Vitamin D deficiency, unspecified (principal); E78.5 Hyperlipidemia, unspecified; D64.9 Anemia, unspecified; E53.8 Deficiency of other specified B group vitamins; Z00.00 Encounter for general adult medical examination without abnormal findings; E11.9 Type 2 diabetes mellitus without complications; G30.9 Alzheimer's disease, unspecified; F02.80 Dementia in other diseases classified elsewhere, unspecified severity, without behavioral disturbance, psychotic disturbance, mood disturbance, and anxiety; Z28.21 Immunization not carried out because of patient refusal
CPT/HCPCS: 36415; 80053; 80061; 82306; 82607; 82746; 83540; 85025; 96127; 99397

== ENCOUNTER 2024-08-09 12:01 | Outpatient (AMB) | payer OTHER, SELFPAY ==
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
[2024-08-09 12:14] VITALS: BP 132/80; BMI 36.1
== END 2024-08-09 12:44 | disposition home or self-care (01) ==
PROVIDERS: PCP Internal Medicine; Visit Provider Internal Medicine
DX: Z00.00 Encounter for general adult medical examination without abnormal findings (principal); E11.9 Type 2 diabetes mellitus without complications; G30.9 Alzheimer's disease, unspecified; F02.80 Dementia in other diseases classified elsewhere, unspecified severity, without behavioral disturbance, psychotic disturbance, mood disturbance, and anxiety

== ENCOUNTER 2024-11-26 11:43 | Inpatient (IN) | payer OTHER, SELFPAY ==
[2024-11-26] VITALS (10 sets, daily range): BP systolic 99–137; BP diastolic 46–77; PULSE 80–108; RESP 22–28; TEMP 36.9–38.3; O2SAT 88–100; BMI 34.7
--- NOTE | ~2024-11-26 | XR_ITS ---
CLINICAL HISTORY: hypoxia Chest Radiograph Comparison: CT/REG/SR - CT CHEST WO IV CON - 04/15/23 10:38 EDT CR/NJ/SR - XR CHEST 2V - 01/13/23 14:07 EDT CR/NJ - XR CHEST 2V - 07/03/20 17:28 EDT Findings: No cardiomegaly. Unchanged mediastinal contours with prominent pulmonary arteries. No pneumothorax. No opacity. No pleural effusion. Normal upper abdomen. No acute fracture. Impression: No acute findings. This document has been electronically signed by: Jasmina Light MD on 11/26/2024 16:33:17
--- NOTE | ~2024-11-26 | XR_ITS ---
CLINICAL HISTORY: SOB 1 view chest x-ray Comparison: CR - XR CHEST 1V - 11/26/24 15:40 EST Findings: No consolidation, pleural effusion or pneumothorax. Cardiomediastinal silhouette is accentuated by portable technique and suboptimal inspiratory effort. No overt CHF. No acute fracture. IMPRESSION: Hypoventilation. No definite acute disease. This document has been electronically signed by: Radha Schofield DO on 11/27/2024 14:11:31
--- NOTE | ~2024-11-26 | CT_ITS ---
CLINICAL HISTORY: abd pain,n v d CT ABDOMEN AND PELVIS WITH CONTRAST Comparison: CT - CT ABDOMEN PELVIS W IV CON - 11/26/24 12:47 EST Findings: There is motion artifact. 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 Small calcified granuloma in the left lower lobe. No acute abnormalities in the solid organs. No urolithiasis. No large calcified gallstone. Atherosclerotic changes; no AAA. No bowel obstruction, pneumoperitoneum, or pneumatosis. Multiple air-fluid levels throughout the small bowel which is distended up to 2.7 cm. No abrupt transition point. No ascites or significant mesenteric edema. Small fat containing umbilical hernia. The appendix is identified. No acute appendicitis. Colonic diverticulosis. No acute diverticulitis. CT appearance of the uterus unremarkable. Incompletely distended urinary bladder. Thoracolumbar spondylosis. Minimal grade 1 spondylolisthesis L4-5. IMPRESSION: 1. Motion affected study. 2. Small bowel ileus pattern. Partial /early small bowel obstruction is included in the differential. 3. No ascites or free air. 4. Diverticulosis coli. No acute diverticulitis. 5. No acute obstructive uropathy or urolithiasis. This document has been electronically signed by: Radha Schofield DO on 11/26/2024 13:28:20
--- NOTE | 2024-11-26 11:51 | ECG_ITS ---
Test Reason : AMS Blood Pressure : */* mmHG Vent. Rate : 101 BPM Atrial Rate : 101 BPM P-R Int : 168 ms QRS Dur : 84 ms QT Int : 346 ms P-R-T Axes : 56 -26 97 degrees QTcB Int : 448 ms Sinus tachycardia with Premature atrial complexes with Aberrant conduction Left ventricular hypertrophy with repolarization abnormality ( R in aVL , Steven product ) Abnormal ECG When compared with ECG of 22-Oct-2021 10:23, Aberrant conduction is now Present Referred By: Sakshi Goldstein Electronically Signed By: ANAHI BUSBY MD
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
[2024-11-26] MEDS: OLANZapine 5 MG TABLET PO (12:26)
[2024-11-26] MEDS: LORazepam 1 MG TABLET PO (12:26)
[2024-11-26 12:47] LABS: Alanine Aminotransferase 15 U/L (0-31); Alkaline Phosphatase 86 U/L (39-117); Anion Gap 13 (12-20); Aspartate Amino Transferase 27 U/L (5-31); Bilirubin Total 0.4 mg/dL (0.0-1.0); Blood Urea Nitrogen 24 mg/dL (9-16); Calcium 9.2 mg/dL (8.4-10.2); Carbon Dioxide 23 mmol/L (22-29); Chloride 109 mmol/L (96-108); Creatinine Clr Calc Pharmacy 27.5; Estimated Glomerular Filt Rate 35; Glucose Random 161 mg/dL (60-115); Lipase 15 U/L (8-78); Magnesium 2.2 mg/dL (1.6-2.6); Potassium 4.1 mmol/L (3.3-5.1); Sodium 141 mmol/L (135-145); Total Protein 8.1 g/dL (6.5-8.0)
--- OUTSIDE RECORDS SUMMARY | 2024-11-26 12:47 | XMS_ITS | Data Portability ---
Author Organization [facility] Address [address] [place] [phone] Care Team Providers Care Rug Cleaner Name Role Phone HIM CCA OTHER Assessment Encounter Date Assessment Date Assessment LastModified by Organization Details LastModified Time 08/24/2023 08/24/2023 I have reviewed and agree with the assessment and plan as documented by the charge master coordinator. I provided real time medical direction for this encounter and was immediately available to provide additional phone based assistance as needed. History as noted by charge master coordinator. Pt with history of dementia. Per family, they have noted that her BP was at times low today, as low as 88/68 but was then 129/91. They also report that the pt's urine has been dark and has a strong odor although they told the medic that this is her normal urine. Pt has seem more tired today and has had decreased appetite from her baseline. They report that the pt's dementia is at it's baseline. No increased confusion or agitation. They also report that the pt has not been coughing or vomiting and had no diarrhea. On exam, pt alert, no obvious distress. Vitals with normal BP, 147/60. All vitals normal except for low grade temp 99.6. Lungs clear. No abdominal tenderness. Rapid covid and Flu both negative. Fingerstick blood sugar 161. Urine dip with trace-1+ leukocytes, very positive nitrite, trace blood. Urine culture sent to [facility]. Impression: Pt with severe dementia, noted today to appear more tired with decreased po intake although she has been eating and drinking. No change otherwise in her baseline mental status, no increased agitation. BP noted to be low intermittently today, but lso normal at times. No URI symptoms or vomiting. On exam, pt alert, no distress. Vitals with normal BP and HR. Low grade temp noted at 99.6. Rapid Covid and Flu both negative. Urine dip + for leukocytes and nitrite. Urine culture sent to [facility] lab. Pt's symptoms and low grade temp likely related to UTI and this is d/w her family. No evidence based ion her vitals to suggest sepsis. Pt is prescribed cefpodoxime 200mg bid x7 days. (Pt has a remote history of PCN allergy a long time ago , unknown reaction, no history of anaphylaxis). Family instructed to start the antibiotics today. Also instructed to ensure that the pt is drinking plenty of fluids. Primary care team needs to call and follow up with the patient's family in the next 1-2 days to ensure that she is feeling better on the antibiotics and also to check the results of today's urine culture and sensitivities. Pt's family instructed to seek medical attention right away with any worsening or new symptoms, which are reviewed with them. btils Not available 08/24/2023 16:17:14 11/26/2024 11/26/2024 I provided real -time medical direction via phone for this encounter and was available for additional phone-based assistance as needed. I have reviewed and agree with the Assessment and Plan as documented by the Evaporator Helper. Patient given the opportunity to ask questions. Our service contacted for an assessment of: Mental status change As per above, patient with dementia and patient's family states she has altered mental status. Also in the context of hyperglycemia. Blood sugars were up in the 400s. Patient unable to give a history. She has very poor p.o. intake. Patient's daughter called this service for evaluation after she had 1 episode of diarrhea this morning. Per charge master coordinator on the scene, vital signs initially showed a low systolic blood pressure in the 90s that is subsequently rebounded up into the 130s when the patient became agitated. Pulses all greater than 100 and in the 122 range. Unable to obtain a BMP due to patient factors. Blood glucose was obtained in the 200s. COVID and flu were both negative. Impression: Altered mental status. Patient became very agitated we are unable to obtain blood work nor establish IV access. Appears dehydrated. Also would benefit from fluid resuscitation. Advised emergency room transfer. No expect call was made as the family's still deciding whether or not to transfer patient. Advised can recall us to let us know so expect call can be made. Allergies: Reviewed [email or web address] Not available 11/26/2024 12:40:53 Plan of Treatment Reminders Order Date Submit Date Provider Last Modified By Organization Details Last Modified Time Details Appointments Urgent Care 2024 10:35A M Ely Leija MD Not available Not available Not available Lab glucose, fingersti ck, blood 2024 025 [email or web address], [address] [place] [address], [phone], 11/26/2024 11:46:27 rapid flu (A+B) 2024 025 [email or web address] [facility], [address] [place] [address], [phone], 11/26/2024 11:09:29 rapid SARS CoV 2 Ag, QL IA, respirato ry specimen 2024 025 [email or web address] [facility] - [facility], [address] [place] [address], [id number], 11/26/2024 11:09:27 glucose, fingersti ck, blood 2024 025 [email or web address] [facility] - [facility], [address] [place] [address], [id number], 11/26/2024 11:09:27 culture, urine 2022 023 LALA [facility] (Centralized Electronic Ordering - All Locations), Patient Can Go To The Location Of Their Choice, [id number] 08/27/2023 08:30:05 urinalysi s, dipstick 2022 023 btils [facility] - [facility], [address] [place] [address], [phone], 08/24/2023 16:01:45 rapid SARS CoV 2 Ag, QL IA, respirato ry specimen 2022 023 btils [facility] - [facility], [address] [place] [address], [id number], 08/24/2023 16:01:46 rapid flu (A+B) 2022 023 btils [facility] - [facility], [address] [place], [phone], 08/24/2023 16:01:47 glucose, fingersti ck, blood 2022 023 btils [facility] - [facility], [address] [place], [phone], 08/24/2023 16:11:01 Referral None recorded. Procedures None recorded. Surgeries None recorded. Imaging None recorded. Medication Orders cefpodoxi me 200 mg tablet 2022 [id number], [address], [place], [phone], 08/24/2023 16:05:13 Patient TargetsNo targets recorded. Patient InstructionsNo instructions recorded. Reason for Referral None Reported. Results Created Date Observation Date Name Description Value Unit Range Abnormal Flag Note LastModifiedBy Organization Detail LastModifiedTime 08/24/2008/24/2023 URINE CULTU RE specimen description URINE Not Available [facility] (Central[facility] Ordering - All Locations) Patient Can Go To The Location Of Their Choice, [id number] 08/27/2023 08:30:05 08/24/2008/24/2023 URINE CULTU RE special requests NONE Not Available [facility] (Centralized Electronic Ordering - All Locations) Patient Can Go To The Location Of Their Choice, [id number] 08/27/2023 08:30:05 08/24/2008/27/2023 URINE CULTU RE culture abnormal >100, 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 This isola te produ luke exten ded spect rum beta- lacta glynn (ESBL ). This isola te was ident ified using Maldi -TOF syste m These AST resul ts were perfo rmed on the Vitek 2 ID and AST syste m BACTE RIURI A WITHO UT SYMPT OMS MAY NOT WARRA NT TREAT MENT. Not Available [facility] (Centralized Electronic Ordering - All Locations) Patient Can Go To The Location Of Their Choice, [id number] 08/27/2023 08:30:05 08/24/20 23 08/27/2023 URINE CULTU RE report status FINAL 2022 Not Available [facility] (Centralized Electronic Ordering - All Locations) Patient Can Go To The Location Of Their Choice, 08/27/2023 08:30:05 08/24/20 23 08/27/2023 URINE CULTU RE organism ORGAN ISM >100, 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 This isola te produ luke exten ded spect rum beta- lacta glynn (ESBL ). This isola te was ident ified using Maldi -TOF syste m These AST resul ts were perfo rmed on the Vitek 2 ID and AST syste m BACTE RIURI A WITHO UT SYMPT OMS MAY NOT WARRA NT TREAT MENT. Not Available [facility] (Centralized Electronic Ordering - All Locations) Patient Can Go To The Location Of Their Choice, 08/27/2023 08:30:05 08/24/2008/27/2023 URINE CULTU RE method METHOD MIN. INHIB. CONC. (MCG/M L) Not Available [facility] (Centralized Electronic Ordering - All Locations) Patient Can Go To The Location Of Their Choice, 08/27/2023 08:30:05 08/24/20 23 08/27/2023 URINE CULTU RE ampicillin AMPICI LLIN RESIST ANT resistant Not Available [facility] (Centralized Electronic Ordering - All Locations) Patient Can Go To The Location Of Their Choice, 08/27/2023 08:30:05 08/24/2008/27/2023 URINE CULTU RE ampicillin/s ulbactam AMPICI LLIN/S ULBACT AM SUSCEP TIBLE susceptib le Not Available [facility] (Centralized Electronic Ordering - All Locations) Patient Can Go To The Location Of Their Choice, 08/27/2023 08:30:05 08/24/20 23 08/27/2023 URINE CULTU RE cefepime CEFEPI ME RESIST ANT resistant Not Available [facility] (Centralized Electronic Ordering - All Locations) Patient Can Go To The Location Of Their Choice, 08/27/2023 08:30:05 08/24/20 23 08/27/2023 URINE CULTU RE ceftriaxone CEFTRI AXONE RESIST ANT resistant Not Available [facility] (Centralized Electronic Ordering - All Locations) Patient Can Go To The Location Of Their Choice, 08/27/2023 08:30:05 08/24/2008/27/2023 URINE CULTU RE ciprofloxaci n CIPROF LOXACI N RESIST ANT resistant Not Available [facility] (Centralized Electronic Ordering - All Locations) Patient Can Go To The Location Of Their Choice, 08/27/2023 08:30:05 08/24/2008/27/2023 URINE CULTU RE ertapenem ERTAPE NEM SUSCEP TIBLE susceptib le Not Available [facility] (Centralized Electronic Ordering - All Locations) Patient Can Go To The Location Of Their Choice, 08/27/2023 08:30:05 08/24/2008/27/2023 URINE CULTU RE gentamicin GENTAM ICIN SUSCEP TIBLE susceptib le Not Available [facility] (Centralized Electronic Ordering - All Locations) Patient Can Go To The Location Of Their Choice, 08/27/2023 08:30:05 08/24/2008/27/2023 URINE CULTU RE levofloxacin LEVOFL OXACIN RESIST ANT resistant Not Available [facility] (Centralized Electronic Ordering - All Locations) Patient Can Go To The Location Of Their Choice, 08/27/2023 08:30:05 08/24/2008/27/2023 URINE CULTU RE nitrofuranto in NITROF URANTO IN SUSCEP TIBLE susceptib le Not Available [facility] (Centralized Electronic Ordering - All Locations) Patient Can Go To The Location Of Their Choice, 08/27/2023 08:30:05 08/24/20 23 08/27/2023 URINE CULTU RE piperacillin /tazobactam PIPERA CILLIN /TAZOB AC SUSCEP TIBLE susceptib le Not Available [facility] (Centralized Electronic Ordering - All Locations) Patient Can Go To The Location Of Their Choice, 08/27/2023 08:30:05 08/24/20 23 08/27/2023 URINE CULTU RE trimeth/sulf amethox TRIMET H/SULF AMETHO X RESIST ANT resistant Not Available [facility] (Centralized Electronic Ordering - All Locations) Patient Can Go To The Location Of Their Choice, 08/27/2023 08:30:05 08/24/20 23 08/24/2023 gluco se, finge rstic k, blood Blood Glucose: mg/dl 161 Not Available [facility] - [address], [phone], 08/24/2023 16:10:47 08/24/20 23 08/24/2023 rapid flu (A+B) Flu negati ve Not Available Main - [facility] ed [address] [place] [address], [phone], 08/24/2023 15:58:49 08/24/20 23 08/24/2023 rapid SARS CoV 2 Ag, QL IA, respi rator y speci men rapid SARS CoV 2 Ag, QL IA, respiratory specimen negati ve Not Available [facility] - [facility] ed [address] [place] [address], [phone], 08/24/2023 15:58:48 08/24/20 23 08/24/2023 urina lysis , dipst ick Leukocytes trace Not Available [facility] - [address], [phone], 08/24/2023 15:58:31 08/24/20 23 08/24/2023 urina lysis , dipst ick Nitrite positi ve Not Available [facility] - [facility] ed [address] [place] [address], [phone], 08/24/2023 15:58:31 08/24/20 23 08/24/2023 urina lysis , dipst ick Blood trace Not Available Main - [facility] [address] [place] [address], [phone], 08/24/2023 15:58:31 Result Notes None recorded. Medical Equipment None Reported. Allergies Allergen ID Allergen Name Allergen Category Reaction Reaction Severity Criticality Documentation Date Start Date Code Code System Note Provider Name and Address Organization Details Recorded Time 3973 Product containin g penicilli n (product) medicatio n Not available Not available Not available 08/27/2023 08109 8001 SNOMED [facility] 03:45:48 Medications Name Sig Start Date Stop Date Status Note LastModified by Organization Details LastModified Time quetiapine 25 mg tablet TAKE 1 TABLET BY MOUTH TWICE DAILY active Not Available Not Available No t Available trazodone 50 mg tablet TAKE 1 TABLET BY MOUTH AT BEDTIME NEEDED FOR SLEEP active Not Available Not Available No t Available cefpodoxime 200 mg tablet TAKE 1 TABLET BY MOUTH EVERY 12 HOURS FOR 7 DAYS active Not Available Not Available N ot Available azithromycin 250 mg tablet TAKE 2 TABLETS BY MOUTH FOR 1 DAY THEN TAKE 1 TABLET BY MOUTH DAILY FOR 4 DAYS active Not Available Not Available N ot Available donepezil 10 mg tablet TAKE 1 TABLET BY MOUTH EVERY DAY AT BEDTIME active Not Available Not Available No t Available trazodone 100 mg tablet TAKE 1 TABLET BY MOUTH AT BEDTIME NEEDED FOR SLEEP active Not Available Not Available No t Available OneTouch Ultra Test strips DIRECTED TO TEST BLOOD SUGAR ONCE A DAY active Not Available Not Available N ot Available nitrofuranto in macrocrystal 100 mg capsule TAKE 1 CAPSULE BY MOUTH TWICE DAILY FOR 7 DAYS. TAKE WITH A MEAL/FOOD active Not Available Not Available No t Available furosemide 20 mg tablet TAKE 1 TABLET BY MOUTH DAILY active Not Available Not Available Not Available metformin ER 500 mg tablet,exten ded release 24 hr TAKE 1 TABLET BY MOUTH TWICE DAILY active Not Available Not Available No t Available naproxen 500 mg tablet TAKE 1 TABLET BY MOUTH TWICE DAILY NEEDED FOR PAIN active Not Available Not Available No t Available rosuvastatin 20 mg tablet TAKE 1 TABLET BY MOUTH DAILY active Not Available Not Available Not Available memantine 10 mg tablet TAKE 1 TABLET BY MOUTH TWICE DAILY active Not Available Not Available No t Available nitrofuranto in monohydrate/ macrocrystal s 100 mg capsule TAKE 1 CAPSULE BY MOUTH EVERY 12 HOURS FOR 5 DAYS active Not Available Not Available N ot Available lactulose 10 gram/15 mL oral solution TAKE 15 ML BY MOUTH AT BEDTIME NEEDED FOR CONSTIPATIO N active Not Available Not Available No t Available solifenacin 10 mg tablet TAKE 1 TABLET BY MOUTH DAILY active Not Available Not Available Not Available BD Ultra-Fine Short Pen Needle 31 gauge x 5/16 DIRECTED TO TEST BLOOD SUGAR active Not Available Not Available Not Available quetiapine 50 mg tablet TAKE 1 TABLET BY MOUTH TWICE DAILY active Not Available Not Available No t Available cholecalcife rol (vitamin D3) 50 mcg (2,000 unit) capsule TAKE 1 CAPSULE BY MOUTH DAILY active Not Available Not Available Not Available Mucus Relief ER 600 mg tablet, extended release active Not Available Not Available Not Available Tradjenta 5 mg tablet TAKE 1 TABLET BY MOUTH DAILY active Not Available Not Available Not Available Jardiance 10 mg tablet TAKE 1 TABLET BY MOUTH DAILY active Not Available Not Available Not Available OneTouch Ultra2 Meter DIRECTED TO TEST BLOOD SUGAR active Not Available Not Available Not Available OneTouch Delica Plus Lancet 30 gauge DIRECTED TO TEST BLOOD SUGAR DAILY active Not Available Not Available No t Available Vitals Date Recorded Heart rate Oxygen saturation Oxygen saturation in Arterial blood by Pulse oximetry Respiratory rate Body temperature Systolic blood pressure Diastolic blood pressure Provider Name and Address Organization Details Last Updated DateTime 3 92 /min 99 % 99 % 18 /min 99.6 [degF] 147 mm[Hg] 60 mm[Hg] Edenilson Ferguson MD [address] [place] [address],[address], [place], [phone] [place] [address] [employer] 3 15:25:38 Date Recorded Respiratory rate Oxygen saturation Oxygen saturation in Arterial blood by Pulse oximetry Body temperature Heart rate Systolic blood pressure Diastolic blood pressure Provider Name and Address Organization Details Last Updated DateTime 3 18 /min 99 % 99 % 99.6 [degF] 92 /min 147 mm[Hg] 60 mm[Hg] Not Available [employer] 3 16:49:26 Date Recorded Oxygen saturation Oxygen saturation in Arterial blood by Pulse oximetry Heart rate Respiratory rate Body temperature Systolic blood pressure Diastolic blood pressure Systolic blood pressure Diastolic blood pressure Provider Name and Address Organization Details Last Updated DateTime 5 93 % 93 % 121 /min 18 /min 99.2 [degF] 105 mm[Hg] 62 mm[Hg] 140 mm[Hg] 80 mm[Hg] Not Available [facility] [employer] 5 11:04:36 Social History None recorded. Functional Status None recorded. Mental Status None recorded. Family History Nothing Reported. Medical History No medical history recorded. Gynecological HistoryNo gynecological history recorded. Obstetrics History GPAL:G 0 P 0 0 0 0 Past Encounters Encounter ID Performer Location Encounter Start Date Encounter Closed Date Diagnosis/Indication Diagnosis SNOMED-CT Code Diagnosis ICD10 Code Diagnosis Note [id number] Edenilson Ferguson MD [facility] - [facility] [address] [place] [phone] 08/24/2023 15:24:05 08/25/2023 09:32:22 Urinary symptoms 532197004 R39.9 Acute urin latisha tract infection 806799500 N39.0 [id number] Ely Leija MD [facility] - [facility] [address] [place] [address] 11/26/2024 10:35:26 11/26/2024 12:41:03 Altered mental status 699772288 R41.82 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 1089108513 92034 E11.65 Health Concerns Section Related Observation LastModified by Organization Detai ls LastModified Time None Recorded Concern Status LastModified by Organization Details LastModified Time None Recorded Advance Directives Directive None Recorded Payers Encounter Date Sequence Insurance Name Policy Number Policy Topete Covered Member ID Topete Member ID Guarantor Name 08/24/2023 1 [facility] - DOS ON OR AFTER 2022 - DUAL ELIGIBLE - RESIDENTIAL OPTIONS AND ONE CARE (MEDICARE REPLACEMENT/AD VANTAGE - HMO) Amos Burroughs [id number] Amos Burroughs 11/26/2024 1 [facility] - DOS ON OR AFTER 2022 - DUAL ELIGIBLE - RESIDENTIAL OPTIONS AND ONE CARE (MEDICARE REPLACEMENT/AD VANTAGE - HMO) Amos Burroughs [id number] Enzonorma Burroughs Notes Date Note Type Note Provider Name and Address Organization Details Recorded Time 08/24/2023 text/html This was a supervised home visit with charge master coordinator Laura Hendrickson. [facility] Nursing Assessment: Reason For Request: Pt has Alzheimer's, pt did not sleep at all and was given medication, did not sleep and hydrated throughout the evening been monitoring BP every hour today, unstable. Pt has been complaining and and vocal but family is unable to understand due incontinence. 90/55 taken 1:56pm est sugar has been taken today at 6:50am 255 sugar 151 sugar at 1pm. Chief Complaints: Altered Mental Status, Anxiety, UTI/Pyelonephritis PMH: Hypertension, Severe Persistent Mental Illness (SPMI), Diabetes Allergies: Penicillin Comments: Members son in law calling in to place a referral, member identified via /name. Member who has possible had a UTI since last month. Member was supposed to be tested by PCP, but due to incontinence, they have been unable to obtain a urine sample. Member has been very restless, hallucination; seeing her mom, dad and sister, also yelling out. Member is difficult to assess due to her alzheimers. Per family she has a strong odor to her urine and it is dark, denies fever/chills. They've also noted members BP to be lower than usual, 87/68, 129/91 and last reading around 2p 90/55, member unable to verbalize any associated symptoms. Member blood sugars have also been running HI when they are usually normal, today they have been 151-235. Family would like member evaluated. .................. .................. .................. .................. .................. .................. .................. ............... Evaporator Helper Note From Laura Hendrickson: Sent to a call for a pt with unstable blood pressure and blood sugar. [facility] arrives on scene, pt is alert and confused at baseline, airway is patent. Family states pt is at her confused baseline due to dementia. Family is concerned because pt's BP has been ranging from 87/68-129/91 today and pt's BG has ranged from 161-234 today (normal B-120 per family). Family states pt has also had dark urine with a strong urine smell for several months. Pt has had decreased appetite today, but has eaten and been drinking. Family denies any vomiting, diarrhea, hematuria, or fever. BP:147/60, P:92, RR:18, SpO2:99% RA, T:99.6; Head: unremarkable; Lung sounds: clear bilaterally; Abdomen: soft, non-tender, no distention; Back: unremarkable; Extremities: unremarkable; Skin: pink, warm, dry; [facility] consulted and orders rapid covid test, rapid flu test, and urine dip. Rapid covid test: neg; Rapid flu test: neg; Straight cath performed: urine: dark yellow, clear, concentrated; Urine dip: nitrites: positive; Full results: uploaded to [email or web address]; [facility] consulted and orders urine culture to be sent to [facility]. [facility] sends script to pt's pharmacy. 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 Red flags discussed. Family has no further questions. .................. .................. .................. .................. .................. .................. .................. ............... Disposition: Fulfilled Edenilson Ferguson MD [address] [place] [address],[address], [place], [phone], [employer] 08/24/2023 18:58:41 11/26/2024 text/html [facility] Nurse Triage Notes (Dl Childs): Reason For Request: Patient has a history of being diabetic, Dementia, High blood pressure. Has Diarrhea, Glucos at 410, and bp 135/116. Pulse is 56. Denies: Sharp focal or diffuse abdominal pain Vomiting blood/coffee ground material Bloating, jaundice new onset with pain Nausea and vomiting greater than 2 hours with abdominal pain Tearing pain that radiates to back Food Impaction Chief Complaints: Diarrhea, Diabetes Related PMH: Hypertension, Severe Persistent Mental Illness (SPMI), Diabetes Mellitus Type 2 PMH Reviewed at 11/26/2024 - 09:22 Allergies Reviewed at 11/26/2024 - 09:22 Comments: Additional PMH: Emphysema Liquefaction Supervisor verified the patient's name//address and phone number. [employer] Specialist# [phone] used for triage assessment. Pt's daughter calling reporting pt awoke this morning with diarrhea. Daughter reports pt's glucose is elevated at 410. Daughter also reports pt's BP is 135/116 and pulse is 56. Daughter is concerned about pt's vital signs and glucose level. Pt has a hx of dementia and is unable to express what is bothering her. Unclear if pt is having nausea, abdominal pain or any other symptoms. Pt heard groaning in the background. Education provided on the response time and the patient was advised to monitor reported s/s and seek emergency treatment if needed -Bethel Childs RN Evaporator Helper Organization Information for [facility] [employer]IGUEL [employer]NG[employer] Name: [employer]? Address: [address] [place] [address], Senior Software Tester: Primo Khanna MD MAYELIN No.: [id number] Evaporator Helper POC Test Results from [facility] Blood Glucose Measurement (10:38:13) Blood Glucose: 214 mg/dL Rapid COVID antigen (10:49:38) COVID: - Rapid influenza antigen (10:49:39) Flu: - .................. .................. .................. .................. .................. .................. .................. ............... Evaporator Helper Note From [facility]: [facility] Medic was called to scene to evaluate an 84 year old woman, whose sugar was high this morning with a reading of 410, and one instance of diarrhea. Upon arrival family let medic into the house and vitals were taken. Medic checked blood sugar which was now at 214. Other vitals were BP 105/62 HR 121 O2 at 93% on room air, and an oral temp or 99.2. Pt has severe dementia, slovak speaking only, and very uncooperative. [facility] was consulted and a flu/covid test were run and came back negative. wanted bloodwork, which medic attempted once on the non restricted arm, which was very scarred, Pt became combative grabbed and scratched at medic, and refused a second time. Without bloodwork, made the decision to have the pt go to the hospital where test could be more safely done. [facility] [place] [facility] Lab Orders: glucose, fingerstick, blood: Performed rapid flu (A+B): Performed rapid SARS CoV 2 Ag, QL IA, respiratory specimen: Performed glucose, fingerstick, blood: Performed .................. .................. .................. .................. .................. .................. .................. ............... [facility] [place] Consulted: Ely Leija .................. .................. .................. .................. .................. .................. .................. ............... Disposition: Fulfilled Ely Leija MD [address] [facility],[address], [place], [address], [facility] 11/26/2024 12:41:01 OBGyn Episode No OBEpisode recorded.
--- OUTSIDE RECORDS SUMMARY | 2024-11-26 12:47 | XMS_ITS | Clinical Summary ---
Author Organization [address] [facility] Address [address] [place] [address] Phone Care Team Providers Care Insight Director Name Role Phone Physician, Pcp Unknown Primary Care Provider Delicia vailable Social History Tobacco Use Types Packs/Day Years Used Date Smoking Tobacco: Never Assessed Comments Unknown Sex and Gender Information Value Date Recorded Sex Assigned at Not on file Legal Sex Female 8:09 AM EST Gender Identity Not on file Sexual Orientation Not on file Plan of Treatment Upcoming Encounters Date Type Department Care Team ([facility] Contact Info) Description 12/19/2024 2:15 PM EDT Consult Orthopedic Surgery - [place] [id number] [address] Loc Bo DPM [address] [id number] Health Maintenance Due Date Last Done Comments Diabetes: Annual GFR (Glomer ular Filtration Rate) 1940 Diabetes: Annual Foot Exam 01/12/1950 Diabetes: Annual Retina Eye Exam 01/12/1950 DTaP,Tdap,and Td Vaccines (1 - Tdap) 01/12/1959 Pneumococcal Vaccine: 50+ Ye ars (1 of 2 - PCV) 01/12/1959 Zoster Vaccines (1 of 2) 01/12/1990 RSV Immunization Patients 60 + Years Old (1 - 1-dose 75+ series) 01/12/2015 COVID-19 Vaccine ( - 2023-2 5 season) 2024 Influenza Vaccine (#1) 2024 Cholesterol Screening (Lipid Panel) 08/24/2024 Depression Screening 08/24/2024 Diabetes: Annual Urine Albumin-Creatinine Ratio (uACR) 08/24/2024 Diabetes: Blood Sugar Contro l Test (HGBA1C) 08/24/2024 Falls Risk Assessment 08/24/2024 Medicare Annual Wellness Visit 08/24/2024 Osteoporosis Screening (Bone Density Screening) 08/24/2024 Social Influencers of Health Screening 08/24/2024 HIB Vaccines Aged Out No longer eligi ble based on patient's age to complete this topic HPV Vaccines Aged Out No longer eligi ble based on patient's age to complete this topic Hepatitis A Vaccines Aged Out No long er eligible based on patient's age to complete this topic Hepatitis B Vaccines Aged Out No long er eligible based on patient's age to complete this topic IPV Vaccines Aged Out No longer eligi ble based on patient's age to complete this topic MMR Vaccines Aged Out No longer eligi ble based on patient's age to complete this topic Meningococcal ACWY Vaccine Aged Out N o longer eligible based on patient's age to complete this topic Meningococcal B Vacine Aged Out No lo nger eligible based on patient's age to complete this topic RSV Immunization Patients Un claude 20 months Aged Out No longer eligible b ased on patient's age to complete this topic Varicella Vaccines Aged Out No longer eligible based on patient's age to complete this topic Insurance [facility] [address] [address] [employer] MEDICARE Member Subscriber Plan / Payer (Ef fective 2019-Present) Name:Amos Love Relation to Subscriber:Self Name:Amos Love Payer ID:[id number] Group ID:[id number] Type:Not on file Address: [address] [phone] Care Teams Insight Director Relationship Specialty Start Date End Date Physician, Pcp Unknown PCP - General 11/08/24
[2024-11-26] MEDS: Acetaminophen Supp 650 MG SUPP.RECT PR (12:49)
[2024-11-26 12:54] LABS: Troponin-I High Sensitivity 23.1 ng/L (<3.5-17.0)
[2024-11-26 12:59] LABS: Hematocrit 39.7 % (37.0-47.0); Hemoglobin 12.8 g/dl (12.0-16.0); Mean Corpuscular HGB Conc 32.2 g/dl (31.0-35.0); Mean Corpuscular Hemoglobin 28.6 pg (27.0-33.0); Mean Corpuscular Volume 88.6 fL (80.0-98.0); Mean Platelet Volume 10.3 fL (9.4-12.3); Platelet Count 236 X10*3/uL (160-400); Red Blood Count 4.48 X10*6/uL (4.20-5.50); Red Cell Distribution Width 13.8 % (11.0-16.0); White Blood Count 8.8 X10*3/uL (4.8-10.8)
--- NOTE | 2024-11-26 12:59 | PC.NURSE ---
Pt very hard stick, multiple attempts
[2024-11-26 13:02] LABS: Lactic Acid 2.2 mmol/L (0.5-2.0)
[2024-11-26 13:05] LABS: Influenza A PCR NEGATIVE (Negative); Influenza B PCR NEGATIVE (Negative); Resp Syncy Virus RNA Qual PCR NEGATIVE (Negative); SARS COV2 PCR INHOUSE NEGATIVE (Negative)
[2024-11-26] MEDS: iohexoL 350 MG/ML 100 ML INFUS..BTL IV (13:05)
[2024-11-26] MEDS: SODIUM CHLORIDE 2415 ML IV (13:09)
[2024-11-26] MEDS: cefTRIAXone sodium 1 GM VIAL IVPUSH (13:23)
[2024-11-26 13:25] LABS: Band Neutrophils Percent 6 % (3-5); Lymphocytes Absolute Manual 0.1 X10*3/uL (1.2-4.9); Lymphocytes Percent Manual 1 % (20-40); Monocytes Absolute Manual 0.4 X10*3/uL (0.1-1.2); Monocytes Percent Manual 5 % (2-11); Neutrophils Absolute Manual 8.3 X10*3/uL (2.0-8.3); Neutrophils Percent Manual 88 % (45-73)
[2024-11-26 13:26] LABS: Platelet Estimate NORMAL (NORMAL); Platelet Morphology Comment NORMAL; RBC Morphology NORMAL; Toxic Vacuolation PRESENT
--- NOTE | 2024-11-26 13:27 | PC.NURSE ---
Provider wanted second set cultures prior to ABX. Provider placed US guided IV and got second set
[2024-11-26] MEDS: Ibuprofen 600 MG TABLET PO (14:23)
[2024-11-26 14:25] LABS: Reflex Lactate? Lactic Acid Added
[2024-11-26 14:28] LABS: Appearance Urine Cloudy; Color Urine Yellow; Glucose Urine UA >=1000 mg/dL (Negative); Leukocyte Esterase Urine Moderate (2+) (Negative); Nitrite Urine Positive (Negative); PH 5.5 (5.0-9.0); Specific Gravity - Urine >= 1.030 (1.005-1.025); UMIC TRIGGER UACC YES; Urine Blood Small (1+) (Negative); Urine Ketones Negative (Negative); Urine Protein Negative (Neg-Trace)
--- NOTE | 2024-11-26 14:42 | PC.NURSE ---
Pt tolerated straight cath, sample sent. Purewick placed for urine incontinence.
[2024-11-26 14:43] LABS: Bacteria Urine 2+ (None Seen); Hyaline Casts Urine 0-2 /LPF (0-2); Squamous Epithelial Cell Urine 0-2 /HPF (0-2); UACC Culture Trigger YES; WBC Urine >50 /HPF (0-5)
--- NOTE | 2024-11-26 14:55 | PC.NURSE ---
Pt had large episode of vomiting with family, RN was called to bedside. Pt covered in vomit. Cleaned and changed.
[2024-11-26] MEDS: ondansetron HCL 4 MG/2 ML VIAL IVPUSH (14:58)
--- NOTE | 2024-11-26 15:31 | PHA.MEDREC ---
Pharmacy Consult ? Medication Reconciliation Pharmacy has completed the medication reconciliation. Utilized preservative filler machine operator services. Pt poor historian of meds and asked family to confirm meds. Per family, pt no longer taking solifenacin and only takes quetiapine 50 mg at bedtime.
--- NOTE | 2024-11-26 15:40 | PC.NURSE ---
Pt noted to be desating to 88% on RA, slight wheezing heard. Placed on 2L O2 NC with good effect, provider notified.
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
[2024-11-26 16:02] LABS: ~Lactic Acid-LAB USE ONLY 1.3 mmol/L (0.5-2.0)
[2024-11-26] MEDS: methylPREDNISolone Sod Succ 40 MG/ML VIAL IVPUSH (16:17)
[2024-11-26] MEDS: metroNIDAZOLE/NS 500 MG/100 ML PIGGYBACK 100 MG IV (16:17)
[2024-11-26] MEDS: Heparin Sodium,Porcine 5,000 UNIT/ML VIAL 5000 UNIT SUBCUT (16:20)
--- NOTE | 2024-11-26 17:51 | PC.NURSE ---
Pt resting in bed, remains on 2L O2 NC with sats >93%. No acute distress at this time.
[2024-11-26 17:59] LABS: Troponin-I High Sensitivity 31.8 ng/L (<3.5-17.0)
[2024-11-26] MEDS: Albuterol/Iprat 2.5/0.5MG 3 ML AMPUL.NEB INHALE (18:07)
[2024-11-26 18:49] LABS: Glucose, Whole Blood 121 mg/dL (60-115)
[2024-11-26 21:13] LABS: Glucose, Whole Blood 158 mg/dL (60-115)
--- NOTE | 2024-11-26 22:52 | PC.NURSE ---
pt's 2100 medications are to be held at this time. the pt was previously reported to have taken his medications crushed in pudding however there was a question of aspiration with previous administration. Per RN report the previous MANNY stated the pt should no longer be taking her medications this way. Pt has been sleeping in the bed since RN arrival at 1900, VSS and pt without distress noted. Family remains at bedside and is in agreeance. Hospitalist made aware and medications to be held this evening until speech eval can be completed
[2024-11-27] VITALS (16 sets, daily range): BP systolic 109–132; BP diastolic 33–60; PULSE 44–90; RESP 15–20; TEMP 36.1–36.7; O2SAT 90–100
[2024-11-27] MEDS: metroNIDAZOLE/NS 500 MG/100 ML PIGGYBACK 100 MG IV ×3 (01:08→17:10)
[2024-11-27] MEDS: 0.9 % Sodium Chloride Flush 3 ML SYRINGE IVFLUSH ×3 (01:09→17:03)
[2024-11-27] MEDS: Lactated Ringers 1,000 ML 999 ML IV (01:13)
[2024-11-27] MEDS: Dextrose 5 % and 0.45 % NaCl 1,000 ML 125 ML IVCONT (03:36)
[2024-11-27] MEDS: methylPREDNISolone Sod Succ 40 MG/ML VIAL IVPUSH ×2 (06:40→17:09)
[2024-11-27] MEDS: Heparin Sodium,Porcine 5,000 UNIT/ML VIAL 5000 UNIT SUBCUT ×2 (06:40→17:04)
[2024-11-27 07:32] LABS: Glucose, Whole Blood 151 mg/dL (60-115)
[2024-11-27] MEDS: Albuterol/Iprat 2.5/0.5MG 3 ML AMPUL.NEB INHALE ×3 (07:59→20:29)
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
[2024-11-27 10:42] LABS: MANUAL DIFF FLAG NO
[2024-11-27 10:51] LABS: ABG Base Excess -0.7 mmol/L; ABG HCO3 27 mmol/L (22-26); ABG pCO2 59 mmHg (32-45); ABG pH 7.26 (7.35-7.45); ABG pO2 40 mmHg (83-108)
[2024-11-27 10:53] LABS: Basophils Percent Auto 0.2 % (0-2); Hemoglobin 10.6 g/dl (12.0-16.0); Imm Gran Abs Auto 0.05 X10*3/uL (0.00-0.03); Imm Gran Pct Auto 0.9 % (0.0-0.4); Lymphocytes Absolute Auto 1.3 X10*3/uL (1.2-4.9); Mean Corpuscular HGB Conc 32.1 g/dl (31.0-35.0); Mean Corpuscular Hemoglobin 28.7 pg (27.0-33.0); Mean Corpuscular Volume 89.4 fL (80.0-98.0); Mean Platelet Volume 10.6 fL (9.4-12.3); Monocytes Absolute Auto 0.8 X10*3/uL (0.1-1.2); Monocytes Percent Auto 13.6 % (2-11); Neutrophils Absolute Auto 3.7 x10*3/uL (2.0-8.3); Neutrophils Percent Auto 63.3 % (45-73); Platelet Count 172 X10*3/uL (160-400); Red Blood Count 3.69 X10*6/uL (4.20-5.50); Red Cell Distribution Width 14.1 % (11.0-16.0); White Blood Count 5.8 X10*3/uL (4.8-10.8)
[2024-11-27 11:10] LABS: Anion Gap 12 (12-20); Blood Urea Nitrogen 22 mg/dL (9-16); Calcium 8.2 mg/dL (8.4-10.2); Carbon Dioxide 21 mmol/L (22-29); Chloride 114 mmol/L (96-108); Estimated Glomerular Filt Rate 48; Glucose Random 146 mg/dL (60-115); Potassium 4.2 mmol/L (3.3-5.1); Sodium 143 mmol/L (135-145)
--- NOTE | 2024-11-27 11:31 | PC.NURSE ---
Admitted from ED at 7;30 AM to 484, drowsy , responded by making few words ( her baseline word salad) during the morning care . Pt still sleeping not waking up to voice or even during blood draw. Phlebotomy are having hard time to draw AM labs, not able to do VBG gases . Order was placed by [facility] for ABG gases . Results from ABG gases are back abd decision was made by Hospitalist to transfer this pt to ICU for rescue BIPAP
[2024-11-27] MEDS: Dextrose 5 % and 0.45 % NaCl 1,000 ML 100 ML IVCONT (11:48)
[2024-11-27 12:50] LABS: Glucose, Whole Blood 107 mg/dL (60-115)
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
[2024-11-27 13:07] LABS: ABG Refer to POC result
--- NOTE | 2024-11-27 13:23 | MHC.CM.PN ---
IMM given 11/27. Pt with advanced dementia and Maldivian speaking only. This CM met with pts daughter/HCP Mechelle present at bedside to complete CM intake assessment and address the IMM. Per Mechelle, the pt lives with her, she provides [employer] care. Pts daughter states she is active with a VNA agency, unsure of the name but states caregivers is in the name. Mechelle states her mother uses a cane, walker, and wheelchair. Mechelle states they completed a HCP at the PCP office, and that we should contact them when they are open to request a copy. Pts daughter Mechelle states she would like her mother to return home once she is medically cleared for discharge. PCP: Dr. Kati May
--- NOTE | 2024-11-27 13:24 | HO.SKINPHOTO ---
Location: anel buttocks Category: Stage: Length: Width: Depth: cm Location: Category: Stage: Length: Width: Depth: cm Location: Category: Stage: Length: Width: Depth: cm Location: Category: Stage: Length: Width: Depth: cm Location: Category: Stage: Length: Width: Depth: cm Location: Category: Stage: Length: Width: Depth: cm
[2024-11-27] MEDS: cefTRIAXone sodium 1 GM VIAL IVPUSH (13:48)
[2024-11-27 16:15] LABS: VBG Base Excess -1.7 mmol/L; VBG HCO3 24 mmol/L (22-26); VBG pCO2 48 mmHg; VBG pH 7.31 (7.32-7.43); VBG pO2 42 mmHg
[2024-11-27 16:24] LABS: Ammonia 31 umol/L (13-55)
[2024-11-27 16:49] LABS: Glucose, Whole Blood 105 mg/dL (60-115)
[2024-11-27 18:07] LABS: Glucose, Whole Blood 111 mg/dL (60-115)
[2024-11-27 18:08] LABS: Venous Blood Gas Refer to POC result
[2024-11-27 18:08] LABS: VBG Base Excess -5.5 mmol/L; VBG HCO3 20 mmol/L (22-26); VBG pCO2 40 mmHg; VBG pO2 127 mmHg
[2024-11-27] MEDS: Pantoprazole Sodium 40 MG/10 ML VIAL IVPUSH (18:15)
[2024-11-27] MEDS: Sodium Bicarbonate 8.4% 150 MEQ in Dextrose 5 % 850 ML 100 MEQ IV (19:00)
--- NOTE | 2024-11-27 19:25 | PC.NURSE ---
ICU Day #: 1? ?The patient arrived at the ICU approx. @? 1240? from [facility].? ?ABG showed acidosis, and the decision was made to transfer to ICU for? BiPAP support and? closer monitoring. Neuro: A&O to self but drowsy, responding to verbal stimuli.? Respiratory: Arrived to ICU on 2L NC transitioned to Bipap 12/? 28%. Approx @ 1630 transitioned to 2L NC, eventually wean off to RA with 92% 02sat. Cardiac:? Sinus Derrick w. PACs, HR down to 40?s,? stable BP. Dr. Weston made aware for above vitals. GI/: LBM 11/26 ,? NPO. :External catheter in placed, Bladder scan 310cc. No action required at the time. Skin: Stage 2 coccyx? (repositioning maintained)? (foam DGS applied). Temp: afebrile? Lines: peripheral IVs
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
[2024-11-28] VITALS (9 sets, daily range): BP systolic 122–168; BP diastolic 53–82; PULSE 58–97; RESP 14–22; TEMP 36.5–37.1; O2SAT 95–100; BMI 34.7
[2024-11-28] MEDS: metroNIDAZOLE/NS 500 MG/100 ML PIGGYBACK 100 MG IV ×4 (00:58→23:18)
[2024-11-28] MEDS: 0.9 % Sodium Chloride Flush 3 ML SYRINGE IVFLUSH ×3 (00:59→15:24)
[2024-11-28] MEDS: Heparin Sodium,Porcine 5,000 UNIT/ML VIAL 5000 UNIT SUBCUT ×2 (03:37→15:20)
[2024-11-28] MEDS: methylPREDNISolone Sod Succ 40 MG/ML VIAL IVPUSH ×2 (03:37→15:20)
[2024-11-28] MEDS: Sodium Bicarbonate 8.4% 150 MEQ in Dextrose 5 % 850 ML 100 MEQ IV ×2 (04:41→15:21)
--- NOTE | 2024-11-28 06:58 | HE.PHANOTE ---
Pharmacy responded to pyxis issue had to fix fridge bicarb was set to be given at 0430 pharmacy had to fix fridge and was brought to the floor once bicarb was retrieved from ICU.
[2024-11-28] MEDS: Pantoprazole Sodium 40 MG/10 ML VIAL IVPUSH (07:42)
[2024-11-28] MEDS: Albuterol/Iprat 2.5/0.5MG 3 ML AMPUL.NEB INHALE ×3 (08:20→21:11)
--- NOTE | 2024-11-28 10:32 | HO.PM.IMPN ---
Subjective Subjective Date of Service: 11/28/24 Interval History: seen and examined this morning follow up for respiratory failure, n/v, pSBO Physical Exam Vital Signs: Vital Signs: Last Vital Signs Temp 97.7 F 11/28/24 08:00 Pulse 61 11/28/24 08:20 Resp 20 11/28/24 08:20 BP 142/82 H 11/28/24 08:00 Pulse Ox 97 11/28/24 08:00 O2 Del Method Nasal Cannula 11/28/24 08:00 O2 Flow Rate 2 11/28/24 08:00 FiO2 28 11/27/24 15:00 BMI result Body Mass Index 34.7 Appearing in no acute distress lung sounds are clear to auscultation heart regular rate rhythm, clear S1, S2 positive bowel sounds, abdomen is soft, nontender neuro patient is alert x3, no focal deficits Objective Data Active Medications Acetaminophen (Acetaminophen Supp 650 Mg Supp.Rect) 650 mg UT Q6H PRN PRN Reason: Pain, Mild 1-3,fever,headache Albuterol/Ipratropium (Albuterol/Iprat 2.5/0.5mg 3 Ml Ampul.Neb) 3 ml INHALE Q4H PRN PRN Reason: Shortness of Breath/Wheezing Albuterol/Ipratropium (Albuterol/Iprat 2.5/0.5mg 3 Ml Ampul.Neb) 3 ml INHALE RQ6H WHILE AWAKE [facility] Last Admin: 11/28/24 08:20 Dose: 3 ml Documented By: KYLIE Ceftriaxone Sodium (Ceftriaxone Sodium 1 Gm Vial) 1 gm IVPUSH Q24H [facility] Last Admin: 11/27/24 13:48 Dose: 1 gm Documented By: JEAN-CLAUDE Dextrose (Dextrose 50 % 25 Gm/50 Ml Syringe) 25 gm IVPUSH Q15M PRN; Protocol PRN Reason: per Hypoglycemia Standing Ord. Glucose (Glucose Gel 15 Gm Gel..Gram.) 15 gm PO Q15M PRN; Protocol PRN Reason: per Hypoglycemia Standing Ord. Heparin Sodium (Porcine) (Heparin Sodium,Porcine 5,000 Unit/Ml Vial) 5,000 unit SUBCUT Q12H [facility] Last Admin: 11/28/24 03:37 Dose: 5,000 unit Documented By: MARGARITA Metronidazole (Flagyl) 500 mg in 100 mls @ 100 mls/hr IV Q8H [facility] Last Admin: 11/28/24 09:02 Dose: 100 mls/hr Documented By: BRUCE Sodium Bicarbonate 150 meq/ (Dextrose) 1,000 mls @ 100 mls/hr IV .Q10H [facility] Last Admin: 11/28/24 04:41 Dose: 100 mls/hr Documented By: MARGARITA Melatonin (Melatonin 3 Mg Tablet) 6 mg PO BEDTIME PRN PRN Reason: Insomnia Methylprednisolone Sodium Succinate (Methylprednisolone Sod Succ 40 Mg/Ml Vial) 40 mg IVPUSH Q12H [facility] Last Admin: 11/28/24 03:37 Dose: 40 mg Documented By: MARGARITA Ondansetron HCl (Ondansetron Hcl 4 Mg/2 Ml Vial) 4 mg IVPUSH Q8H PRN PRN Reason: Nausea and Vomiting Pantoprazole Sodium (Pantoprazole Sodium 40 Mg/10 Ml Vial) 40 mg IVPUSH DAILY@0630 [facility] Last Admin: 11/28/24 07:42 Dose: 40 mg Documented By: MARGARITA Sodium Chloride (0.9 % Sodium Chloride Flush 3 Ml Syringe) 3 ml IVFLUSH QSHIFT [facility] Last Admin: 11/28/24 09:03 Dose: 3 ml Documented By: BRUCE Labs 11/27/24 10:33 11/27/24 10:33 Labs: Laboratory Results - last 24 hr 11/27/24 11/27/24 11/27/24 10:33 10:47 12:46 MCV 89.4 MCH 28.7 MCHC 32.1 RDW 14.1 Plt Count 172 D MPV 10.6 Immature Gran % (Auto) 0.9 H Neut % (Auto) 63.3 Lymph % (Auto) 22.0 [place] % (Auto) 13.6 H Eos % (Auto) 0.0 Baso % (Auto) 0.2 Lymph # (Auto) 1.3 [place] # (Auto) 0.8 Eos # (Auto) 0.0 Baso # (Auto) 0.0 Abs Immat Gran (auto) 0.05 H Absolute Neuts (auto) 3.7 Absolute Nucleated RBC 0.000 Nucleated RBC % (auto) 0.0 O2 Saturation 59.0 ABG pH at Pt Temp 7.26 L ABG pCO2 at Pt Temp 59 H ABG pO2 at Pt Temp 40 L* ABG HCO3 27 H ABG Base Excess (Actual) -0.7 VBG pH VBG pCO2 VBG pO2 VBG HCO3 VBG O2 Saturation VBG Base Excess Anion Gap 12 Estim Creat Clear Calc 36.0 Estimated GFR 48 POC Glucose 107 Random Glucose 146 H Calcium 8.2 L D Ammonia 11/27/24 11/27/24 11/27/24 16:10 16:12 16:45 MCV MCH MCHC RDW Plt Count MPV Immature Gran % (Auto) Neut % (Auto) Lymph % (Auto) [place] % (Auto) Eos % (Auto) Baso % (Auto) Lymph # (Auto) [place] # (Auto) Eos # (Auto) Baso # (Auto) Abs Immat Gran (auto) Absolute Neuts (auto) Absolute Nucleated RBC Nucleated RBC % (auto) O2 Saturation ABG pH at Pt Temp ABG pCO2 at Pt Temp ABG pO2 at Pt Temp ABG HCO3 ABG Base Excess (Actual) VBG pH 7.31 L VBG pCO2 48 VBG pO2 42 VBG HCO3 24 VBG O2 Saturation 68.0 VBG Base Excess -1.7 Anion Gap Estim Creat Clear Calc Estimated GFR POC Glucose 105 Random Glucose Calcium Ammonia 31 11/27/24 11/27/24 18:01 18:02 MCV MCH MCHC RDW Plt Count MPV Immature Gran % (Auto) Neut % (Auto) Lymph % (Auto) [place] % (Auto) Eos % (Auto) Baso % (Auto) Lymph # (Auto) [place] # (Auto) Eos # (Auto) Baso # (Auto) Abs Immat Gran (auto) Absolute Neuts (auto) Absolute Nucleated RBC Nucleated RBC % (auto) O2 Saturation ABG pH at Pt Temp ABG pCO2 at Pt Temp ABG pO2 at Pt Temp ABG HCO3 ABG Base Excess (Actual) VBG pH 7.30 L VBG pCO2 40 VBG pO2 127 VBG HCO3 20 L VBG O2 Saturation 100.0 VBG Base Excess -5.5 Anion Gap Estim Creat Clear Calc Estimated GFR POC Glucose 111 Random Glucose Calcium Ammonia Microbiology Microbiology Results: Microbiology 11/26/24 13:21 Blood Culture - Preliminary Blood - Venous No growth after 24 hours. 11/26/24 12:22 Blood Culture - Preliminary Blood - Venous No growth after 24 hours. 11/26/24 Unknown Urine Culture - Preliminary Urine Catheterized - Straight Catheter Culture in progress. Assessment and Plan (1) KEVIN (acute kidney injury): Status: Acute (2) UTI (urinary tract infection): Status: Acute Plan 84-year-old female with advanced dementia, diabetes, COPD, hypertension who was brought to the emergency department by family due to abdominal pain and diarrhea found to have UTI and partial small bowel obstruction who subsequently had an episode of vomiting with probable aspiration while in the emergency department Acute respiratory failure with hypoxia Likely due to aspiration as hypoxia followed episode of vomiting and acute COPD exacerbation Systemic steroids Albuterol Supplemental oxygen as needed, wean as tolerated. Goal O2 > 90% Sepsis due to GNR and strep viridans UTI and possible aspiration pneumonia met criteria with tachycardia, tachypnea, also with low grade fever. Lactic acid 2.2, repeat normalized after fluid. tachycardia and tachypnea resolved. received 30 cc/kg bolus in the ED Continue IV ceftriaxone, IV flagyl urine cultures with ecoli and strep virdans blood cultures neg Possible aspiration pneumonia episode of vomiting in the ED eats chopped food at baseline Speech evaluation then likely clear liquid diet aspiration precautions Mild elevation in cardiac enzymes likely type 2 due to demand trops flat Nausea/vomiting/diarrhea/abdominal pain imaging with ileus versus early/partial small bowel obstruction Abdomen benign-less likely bowel obstruction possible gastroenteritis - no further diarrhea check stool studies if recurrent diarrhea general surgery following KEVIN. Resolved due to GI losses IVF follow BMP Alzheimer dementia with behavioral disturbance At baseline patient has advanced dementia. per family patient is confused all the time, does not know her name, date or names of family members she is unable to carry on full conversation at baseline and has difficulty communicating h/o agitation will continue baseline seroquel and trazodone DM2 follow POCs, hold SSI coverage hold Jardiance, Tradjenta HLD hold statin until tolerating diet ?CHF unspecified on lasix at baseline, will hold in the setting of sepsis Morbid obesity, BMI 34.7 weight loss encouraged dvt ppx - heparin HCP - daughter Mechelle Mccartney code status - Full code per daughter Requires ongoing inpatient stay for management of sepsis, aspiration, UTI, COPD exacerbation requiring IV antibiotics, breathing treatments, systemic steroids and specialist evaluation Quality Stroke Does the patient have a stroke diagnosis?: No VTE Prior VTE?: No VTE Risk Level:: Medical - moderate - high VTE Device Contraindication: N/A - Device Ordered VTE Drug Contraindication: N/A - Med Ordered
--- NOTE | 2024-11-28 10:49 | P.PNGS_ITS ---
Subjective Subjective Date of Service: 11/28/24 Interval history: Denies abdominal pain No vomiting No other events reported Physical Exam 2 Vital Signs: Vital Signs: Last Vital Signs Temp 97.7 F 11/28/24 08:00 Pulse 61 11/28/24 08:20 Resp 20 11/28/24 08:20 BP 142/82 H 11/28/24 08:00 Pulse Ox 97 11/28/24 08:00 O2 Del Method Nasal Cannula 11/28/24 08:00 O2 Flow Rate 2 11/28/24 08:00 FiO2 28 11/27/24 15:00 BMI result Body Mass Index 34.7 Const: General: comfortable and no acute distress Resp: Effort & Inspection: normal respiratory effort Cardio: Rate: regular rate GI: Palpation (GI): Soft to palpation, not firm and nontender Objective Data Active Medications Acetaminophen (Acetaminophen Supp 650 Mg Supp.Rect) 650 mg NM Q6H PRN PRN Reason: Pain, Mild 1-3,fever,headache Albuterol/Ipratropium (Albuterol/Iprat 2.5/0.5mg 3 Ml Ampul.Neb) 3 ml INHALE Q4H PRN PRN Reason: Shortness of Breath/Wheezing Albuterol/Ipratropium (Albuterol/Iprat 2.5/0.5mg 3 Ml Ampul.Neb) 3 ml INHALE RQ6H WHILE AWAKE [facility] Last Admin: 11/28/24 08:20 Dose: 3 ml Documented By: KYLIE Ceftriaxone Sodium (Ceftriaxone Sodium 1 Gm Vial) 1 gm IVPUSH Q24H [facility] Last Admin: 11/27/24 13:48 Dose: 1 gm Documented By: JEAN-CLAUDE Dextrose (Dextrose 50 % 25 Gm/50 Ml Syringe) 25 gm IVPUSH Q15M PRN; Protocol PRN Reason: per Hypoglycemia Standing Ord. Glucose (Glucose Gel 15 Gm Gel..Gram.) 15 gm PO Q15M PRN; Protocol PRN Reason: per Hypoglycemia Standing Ord. Heparin Sodium (Porcine) (Heparin Sodium,Porcine 5,000 Unit/Ml Vial) 5,000 unit SUBCUT Q12H [facility] Last Admin: 11/28/24 03:37 Dose: 5,000 unit Documented By: MARGARITA Metronidazole (Flagyl) 500 mg in 100 mls @ 100 mls/hr IV Q8H [facility] Last Infusion: 11/28/24 10:02 Dose: Infused Documented By: BRUCE Sodium Bicarbonate 150 meq/ (Dextrose) 1,000 mls @ 100 mls/hr IV .Q10H [facility] Last Admin: 11/28/24 04:41 Dose: 100 mls/hr Documented By: MARGARITA Melatonin (Melatonin 3 Mg Tablet) 6 mg PO BEDTIME PRN PRN Reason: Insomnia Methylprednisolone Sodium Succinate (Methylprednisolone Sod Succ 40 Mg/Ml Vial) 40 mg IVPUSH Q12H [facility] Last Admin: 11/28/24 03:37 Dose: 40 mg Documented By: MARGARITA Ondansetron HCl (Ondansetron Hcl 4 Mg/2 Ml Vial) 4 mg IVPUSH Q8H PRN PRN Reason: Nausea and Vomiting Pantoprazole Sodium (Pantoprazole Sodium 40 Mg/10 Ml Vial) 40 mg IVPUSH DAILY@0630 [facility] Last Admin: 11/28/24 07:42 Dose: 40 mg Documented By: MARGARITA Sodium Chloride (0.9 % Sodium Chloride Flush 3 Ml Syringe) 3 ml IVFLUSH QSHIFT [facility] Last Admin: 11/28/24 09:03 Dose: 3 ml Documented By: BRUCE Labs 11/27/24 10:33 11/27/24 10:33 Labs: Laboratory Results - last 24 hr 11/27/24 11/27/24 11/27/24 10:33 10:47 12:46 MCV 89.4 MCH 28.7 MCHC 32.1 RDW 14.1 Plt Count 172 D MPV 10.6 Immature Gran % (Auto) 0.9 H Neut % (Auto) 63.3 Lymph % (Auto) 22.0 [place] % (Auto) 13.6 H Eos % (Auto) 0.0 Baso % (Auto) 0.2 Lymph # (Auto) 1.3 [place] # (Auto) 0.8 Eos # (Auto) 0.0 Baso # (Auto) 0.0 Abs Immat Gran (auto) 0.05 H Absolute Neuts (auto) 3.7 Absolute Nucleated RBC 0.000 Nucleated RBC % (auto) 0.0 O2 Saturation 59.0 ABG pH at Pt Temp 7.26 L ABG pCO2 at Pt Temp 59 H ABG pO2 at Pt Temp 40 L* ABG HCO3 27 H ABG Base Excess (Actual) -0.7 VBG pH VBG pCO2 VBG pO2 VBG HCO3 VBG O2 Saturation VBG Base Excess Anion Gap 12 Estim Creat Clear Calc 36.0 Estimated GFR 48 POC Glucose 107 Random Glucose 146 H Calcium 8.2 L D Ammonia 11/27/24 11/27/24 11/27/24 16:10 16:12 16:45 MCV MCH MCHC RDW Plt Count MPV Immature Gran % (Auto) Neut % (Auto) Lymph % (Auto) [place] % (Auto) Eos % (Auto) Baso % (Auto) Lymph # (Auto) [place] # (Auto) Eos # (Auto) Baso # (Auto) Abs Immat Gran (auto) Absolute Neuts (auto) Absolute Nucleated RBC Nucleated RBC % (auto) O2 Saturation ABG pH at Pt Temp ABG pCO2 at Pt Temp ABG pO2 at Pt Temp ABG HCO3 ABG Base Excess (Actual) VBG pH 7.31 L VBG pCO2 48 VBG pO2 42 VBG HCO3 24 VBG O2 Saturation 68.0 VBG Base Excess -1.7 Anion Gap Estim Creat Clear Calc Estimated GFR POC Glucose 105 Random Glucose Calcium Ammonia 31 11/27/24 11/27/24 18:01 18:02 MCV MCH MCHC RDW Plt Count MPV Immature Gran % (Auto) Neut % (Auto) Lymph % (Auto) [place] % (Auto) Eos % (Auto) Baso % (Auto) Lymph # (Auto) [place] # (Auto) Eos # (Auto) Baso # (Auto) Abs Immat Gran (auto) Absolute Neuts (auto) Absolute Nucleated RBC Nucleated RBC % (auto) O2 Saturation ABG pH at Pt Temp ABG pCO2 at Pt Temp ABG pO2 at Pt Temp ABG HCO3 ABG Base Excess (Actual) VBG pH 7.30 L VBG pCO2 40 VBG pO2 127 VBG HCO3 20 L VBG O2 Saturation 100.0 VBG Base Excess -5.5 Anion Gap Estim Creat Clear Calc Estimated GFR POC Glucose 111 Random Glucose Calcium Ammonia Microbiology Microbiology Results: Microbiology 11/26/24 Unknown Urine Culture - Preliminary Urine Catheterized - Straight Catheter Gram negative ardha Streptococcus viridans group 11/26/24 13:21 Blood Culture - Preliminary Blood - Venous No growth after 24 hours. 11/26/24 12:22 Blood Culture - Preliminary Blood - Venous No growth after 24 hours. Procedures Date of Service Date of Service: 11/28/24 Progress Note: A&P Assessment and plan (1) Diarrhea: Status: Acute Assessment and Plan: Clinically not obstructed Abdomen is soft and benign She looks well As per hospitalist service - for swallow eval today Okay to start on clear liquids and advance as tolerated if without dysphagia Family at bedside as well, updated Time Spent With Patient Time: Total time managing care of this patient today ____ minutes. Quality Stroke Does the patient have a stroke diagnosis?: No VTE Prior VTE?: No VTE Risk Level:: Medical - moderate - high VTE Device Contraindication: N/A - Device Ordered VTE Drug Contraindication: N/A - Med Ordered
[2024-11-28 12:04] LABS: Glucose, Whole Blood 185 mg/dL (60-115)
[2024-11-28] MEDS: cefTRIAXone sodium 1 GM VIAL IVPUSH (13:52)
--- NOTE | 2024-11-28 14:28 | MHC.SL.SWA ---
Speech Pathologist Impression: Dysphagia secondary to dementia Risk of Aspiration Due to: Reduced Cognition Dysphasia Diet Status: Clear Liquid Diet Liquid Consistency and Strategies for Safe Swallow: Liquid Intake Recommendation: Thin Liquid Intake Strategies: Solid Food Consistency: Dietary Recommendations: Clear liquid diet Additional Modifications to Solid Foods: Oral Medication Intake: Crushed with Puree Please contact the pharmacy regarding appropriate crushable or liquid drug formulations that are available whenever modified delivery is recommended. Compensatory Strategies and Precautions to be Taken for Safe Swallow: Sitting Upright (90 deg) Small Bites and Sips Rate of Ingestion Change Supervision While Eating and Drinking for Safe Swallow: Foods to Avoid: Swallowing Recommended Treatments: Compens. Strategy Educat. Recommendation for Speech: Inpatient Speech Therapy Comment: Oropharyngeal swallow WFL. [employer] to assess for diet advance when appropriate. Frequency/Duration: Daily as indicated Date Range for Service Req: Timeline to reassess: Coin Machine Collector Clinican/Clinical Fellow: No: TBD Supervisory Statement: I have reviewed and agree with the student/clinical fellow's documentation: N/A Speech Language Pathologist: Mercedes Lundberg M.S., CCC-[employer]
--- NOTE | 2024-11-28 16:35 | MHC.CM.PN ---
Per MD rounds COMMERCIAL PRODUCER sachin today. DP home with resumption of [place] and [facility] SL and RN Q month. Transport via BLS.
--- NOTE | 2024-11-28 16:53 | HO.WOUND ---
Addendum entered by Bela Cruz RN 11/29/24 13:10: Wound Consult: Attempted 11/29/24 @ 1200 - patient up to chair - will coordinate with direct care team to assess once back in bed. No new topical recommendations needed at this time. Original Note: Wound Consult: Initial 84yr old?female admitted to [facility] on11/26/24 - See progress notes and H&P for detailed history.? Wound consult placed for Buttock wound POA.? Patient agreeable to assessment and photo documentation.? Chart review completed along with photo review. Bilateral Buttock Etiology: ??Stage 2 Pressure injury Present on Admission Wound Bed: dried partial thickness tissue loss - appear to be resolving - MASD and friction component noted Drainage / Odor: None Edges: ? irregular [place] wound: ?MASD and friction Goals of Treatment: ? Triad to act as barrier to moisture and friction and allow for healing Recommendations: 1. Turn and Reposition every 2 hours and as needed for patient comfort.? Use pillows or wedges to support off loading positions. 2. Off Load all bony prominences with use of pillows and heel boots if needed.? Apply Preventative foams where needed. ? 3. Monitor for incontinence and moisture control, use barrier creams when needed for prevention and treatment. 4. Provide adequate and supplemental nutrition.? 5. Continue low air loss mattress. 6. When applicable maintain blood glucose levels per Providers order. 7. Bilateral Buttock - Off Load Pressure with Q2 hr turns and use of pillows - Cleanse with PH balance spray or wipes, pat dry. ?Apply thin layer of Triad to wound bed - only pat and dab no scrub and rub when soiling occurs. Reapply thin layer PRN after each episode of incontinence. Re-consult wound care Nurse for wound deterioration or wound changes.
[2024-11-28 18:04] LABS: Glucose, Whole Blood 160 mg/dL (60-115)
[2024-11-29] VITALS (12 sets, daily range): BP systolic 115–182; BP diastolic 58–76; PULSE 60–177; RESP 15–21; TEMP 36.4–37.3; O2SAT 91–99; BMI 44.9
[2024-11-29 00:32] LABS: Glucose, Whole Blood 236 mg/dL (60-115)
[2024-11-29] MEDS: Sodium Bicarbonate 8.4% 150 MEQ in Dextrose 5 % 850 ML 100 MEQ IV (02:25)
[2024-11-29] MEDS: methylPREDNISolone Sod Succ 40 MG/ML VIAL IVPUSH (04:40)
[2024-11-29] MEDS: Heparin Sodium,Porcine 5,000 UNIT/ML VIAL 5000 UNIT SUBCUT ×2 (04:40→15:39)
[2024-11-29] MEDS: Pantoprazole Sodium 40 MG/10 ML VIAL IVPUSH (04:40)
[2024-11-29 06:22] LABS: Glucose, Whole Blood 177 mg/dL (60-115)
[2024-11-29] MEDS: Albuterol/Iprat 2.5/0.5MG 3 ML AMPUL.NEB INHALE ×3 (08:10→19:23)
--- NOTE | 2024-11-29 08:51 | P.CDIM_ITS ---
PROVIDER RESPONSE TEXT: To clarify, the appropriate diagnosis supported by the clinical indicators: Acute QUERY TEXT: PHYSICIAN'S DOCUMENTATION REQUEST Date of Query: 11/28/2024 12:21 PM EDT Patient Name: Amos Love Admit Date: 11/26/2024 Dear Colette Wright [employer]PA[employer]DRAISER, A review of the medical record indicates additional documentation may be needed. Please review below and update the documentation accordingly. Clinical Indicators: ICU progress note dated 11/27/24 - Combined metabolic and respiratory acidosis. Metabolic acidosis is possibly secondary to normal saline. N/V/D possible gastroenteritis. Clarify which of the following accurately represents the acuity of the metabolic acidosis: Possible options might include: Acute Chronic Other (explain) Clinically unable to determine (explain) Thank you, Re Lindsay, CCS, CDIS Use of terms such as suspected, likely, concern for, or probable (associated with a specific diagnosi s that is being evaluated, monitored, or treated as if it exists) are acceptable and can be coded in the inpatient se tting, when documented at the time of discharge. Please use your independent medical judgment in providing your response. THIS QUERY IS PART OF THE PERMANENT MEDICAL RECORD
[2024-11-29] MEDS: 0.9 % Sodium Chloride Flush 3 ML SYRINGE IVFLUSH ×3 (09:02→19:50)
[2024-11-29] MEDS: metroNIDAZOLE/NS 500 MG/100 ML PIGGYBACK 100 MG IV ×2 (09:02→15:39)
[2024-11-29] MEDS: Cyanocobalamin (Vitamin B-12) 1,000 MCG TABLET 1000 MCG PO (09:35)
[2024-11-29] MEDS: Furosemide 20 MG TABLET PO (09:35)
[2024-11-29] MEDS: Empagliflozin 10 MG TABLET PO (09:36)
[2024-11-29] MEDS: Cholecalciferol (Vitamin D3) 25 MCG TABLET 50 MCG PO (09:36)
--- NOTE | 2024-11-29 10:48 | P.PNIM_ITS ---
Subjective Subjective Date of Service: 11/29/24 Interval History: seen and examined this morning follow up for respiratory failure, n/v, pSBO doing better, diet advanced Physical Exam 2 Vital Signs: Vital Signs: Last Vital Signs Temp 97.6 F 11/29/24 07:34 Pulse 69 11/29/24 08:11 Resp 16 11/29/24 08:11 BP 159/66 H 11/29/24 07:34 Pulse Ox 98 11/29/24 07:34 O2 Del Method Nasal Cannula 11/29/24 07:34 O2 Flow Rate 2 11/29/24 07:34 FiO2 28 11/27/24 15:00 BMI result Body Mass Index 44.9 Appearing in no acute distress lung sounds are clear to auscultation heart regular rate rhythm, clear S1, S2 positive bowel sounds, abdomen is soft, nontender neuro patient is alert x3, no focal deficits Objective Data Active Medications Acetaminophen (Acetaminophen Supp 650 Mg Supp.Rect) 650 mg AK Q6H PRN PRN Reason: Pain, Mild 1-3,fever,headache Albuterol/Ipratropium (Albuterol/Iprat 2.5/0.5mg 3 Ml Ampul.Neb) 3 ml INHALE Q4H PRN PRN Reason: Shortness of Breath/Wheezing Albuterol/Ipratropium (Albuterol/Iprat 2.5/0.5mg 3 Ml Ampul.Neb) 3 ml INHALE RQ6H WHILE AWAKE [facility] Last Admin: 11/29/24 08:10 Dose: 3 ml Documented By: KYLIE Atorvastatin Calcium (Atorvastatin Calcium 10 Mg Tablet) 10 mg PO DAILY [facility] Ceftriaxone Sodium (Ceftriaxone Sodium 1 Gm Vial) 1 gm IVPUSH Q24H [facility] Last Admin: 11/28/24 13:52 Dose: 1 gm Documented By: BRUCE Cyanocobalamin (Cyanocobalamin (Vitamin B-12) 1,000 Mcg Tablet) 1,000 mcg PO DAILY [facility] Last Admin: 11/29/24 09:35 Dose: 1,000 mcg Documented By: BRUCE Dextrose (Dextrose 50 % 25 Gm/50 Ml Syringe) 25 gm IVPUSH Q15M PRN; Protocol PRN Reason: per Hypoglycemia Standing Ord. Empagliflozin (Empagliflozin 10 Mg Tablet) 10 mg PO DAILY [facility] Last Admin: 11/29/24 09:36 Dose: 10 mg Documented By: BRUCE Furosemide (Furosemide 20 Mg Tablet) 20 mg PO DAILY [facility]; Protocol Last Admin: 11/29/24 09:35 Dose: 20 mg Documented By: BRUCE Glucose (Glucose Gel 15 Gm Gel..Gram.) 15 gm PO Q15M PRN; Protocol PRN Reason: per Hypoglycemia Standing Ord. Heparin Sodium (Porcine) (Heparin Sodium,Porcine 5,000 Unit/Ml Vial) 5,000 unit SUBCUT Q12H [facility] Last Admin: 11/29/24 04:40 Dose: 5,000 unit Documented By: BERHANE Metronidazole (Flagyl) 500 mg in 100 mls @ 100 mls/hr IV Q8H [facility] Last Infusion: 11/29/24 10:02 Dose: Infused Documented By: BRUCE Sodium Bicarbonate 150 meq/ (Dextrose) 1,000 mls @ 100 mls/hr IV .Q10H [facility] Last Infusion: 11/29/24 10:20 Dose: 100 mls/hr Documented By: BRUCE Lactulose (Lactulose 20 Gm/30 Ml Solution) 10 gm PO BEDTIME PRN PRN Reason: constipation Melatonin (Melatonin 3 Mg Tablet) 6 mg PO BEDTIME PRN PRN Reason: Insomnia Methylprednisolone Sodium Succinate (Methylprednisolone Sod Succ 40 Mg/Ml Vial) 40 mg IVPUSH Q12H [facility] Last Admin: 11/29/24 04:40 Dose: 40 mg Documented By: BERHANE Non-Formulary Medication (Linagliptin [Tradjenta]) 5 mg PO DAILY [facility] Ondansetron HCl (Ondansetron Hcl 4 Mg/2 Ml Vial) 4 mg IVPUSH Q8H PRN PRN Reason: Nausea and Vomiting Pantoprazole Sodium (Pantoprazole Sodium 40 Mg/10 Ml Vial) 40 mg IVPUSH DAILY@0630 [facility] Last Admin: 11/29/24 04:40 Dose: 40 mg Documented By: BERHANE Sodium Chloride (0.9 % Sodium Chloride Flush 3 Ml Syringe) 3 ml IVFLUSH QSHIFT [facility] Last Admin: 11/29/24 09:02 Dose: 3 ml Documented By: BRUCE Vitamin D (Cholecalciferol (Vitamin D3) 25 Mcg Tablet) 50 mcg PO DAILY [facility] Last Admin: 11/29/24 09:36 Dose: 50 mcg Documented By: BRUCE Labs 11/27/24 10:33 11/27/24 10:33 Labs: Laboratory Results - last 24 hr 11/28/24 11/28/24 11/29/24 12:00 18:00 00:29 POC Glucose 185 H 160 H 236 H 11/29/24 06:14 POC Glucose 177 H Microbiology Microbiology Results: Microbiology 11/26/24 Unknown Urine Culture - Final Urine Catheterized - Straight Catheter Escherichia coli Streptococcus viridans group 11/26/24 13:21 Blood Culture - Preliminary Blood - Venous No growth after 48 hours. 11/26/24 12:22 Blood Culture - Preliminary Blood - Venous No growth after 48 hours. Assessment and Plan (1) KEVIN (acute kidney injury): Status: Acute (2) UTI (urinary tract infection): Status: Acute Plan 84-year-old female with advanced dementia, diabetes, COPD, hypertension who was brought to the emergency department by family due to abdominal pain and diarrhea found to have UTI and partial small bowel obstruction who subsequently had an episode of vomiting with probable aspiration while in the emergency department Sepsis due to ESBL ecoli and strep viridans UTI and possible aspiration pneumonia met criteria with tachycardia, tachypnea, also with low grade fever. Lactic acid 2.2, repeat normalized after fluid. tachycardia and tachypnea resolved. received 30 cc/kg bolus in the ED Continue IV ceftriaxone, IV flagyl blood cultures neg Acute respiratory failure with hypoxia. Resolved Likely due to aspiration as hypoxia followed episode of vomiting and acute COPD exacerbation Systemic steroids Albuterol Supplemental oxygen as needed, wean as tolerated. Goal O2 > 90% Possible aspiration pneumonia episode of vomiting in the ED eats chopped food at baseline Speech evaluation> advance diet as tolerated aspiration precautions Mild elevation in cardiac enzymes likely type 2 due to demand trops flat Nausea/vomiting/diarrhea/abdominal pain imaging with ileus versus early/partial small bowel obstruction Abdomen benign-less likely bowel obstruction possible gastroenteritis - no further diarrhea check stool studies if recurrent diarrhea general surgery following KEVIN. Resolved due to GI losses IVF follow BMP Alzheimer dementia with behavioral disturbance At baseline patient has advanced dementia. per family patient is confused all the time, does not know her name, date or names of family members she is unable to carry on full conversation at baseline and has difficulty communicating h/o agitation will continue baseline seroquel and trazodone DM2 follow POCs, hold SSI coverage hold Jardiance, Tradjenta HLD hold statin until tolerating diet ?CHF unspecified on lasix at baseline, will hold in the setting of sepsis Morbid obesity, BMI 44.9 weight loss encouraged dvt ppx - heparin HCP - daughter Mechelle Mccartney code status - Full code per daughter Requires ongoing inpatient stay for management of sepsis, aspiration, UTI, COPD exacerbation requiring IV antibiotics, breathing treatments, systemic steroids and specialist evaluation Quality Stroke Does the patient have a stroke diagnosis?: No VTE Prior VTE?: No VTE Risk Level:: Medical - moderate - high VTE Device Contraindication: N/A - Device Ordered VTE Drug Contraindication: N/A - Med Ordered
[2024-11-29 12:05] LABS: Glucose, Whole Blood 231 mg/dL (60-115)
[2024-11-29] MEDS: cefTRIAXone sodium 1 GM VIAL IVPUSH (13:16)
[2024-11-29 18:05] LABS: Glucose, Whole Blood 131 mg/dL (60-115)
[2024-11-29] MEDS: Melatonin 3 MG TABLET 6 MG PO (19:48)
[2024-11-29] MEDS: traZODone HCL 100 MG TABLET PO (21:01)
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
[2024-11-30] MEDS: metroNIDAZOLE/NS 500 MG/100 ML PIGGYBACK 100 MG IV ×2 (00:30→09:01)
[2024-11-30 03:15] VITALS: BP 170/77; PULSE 74; RESP 20; TEMP 37.3; O2SAT 95
[2024-11-30] MEDS: Heparin Sodium,Porcine 5,000 UNIT/ML VIAL 5000 UNIT SUBCUT (05:58)
[2024-11-30] MEDS: Pantoprazole Sodium 40 MG/10 ML VIAL IVPUSH (05:59)
[2024-11-30 06:00] VITALS: BMI 44.9
[2024-11-30 06:20] LABS: Glucose, Whole Blood 105 mg/dL (60-115)
[2024-11-30 07:32] VITALS: BP 172/78; PULSE 84; RESP 17; TEMP 36.9; O2SAT 96
[2024-11-30 07:56] VITALS: PULSE 84; RESP 17; O2SAT 93
[2024-11-30] MEDS: Albuterol/Iprat 2.5/0.5MG 3 ML AMPUL.NEB INHALE (07:56)
[2024-11-30] MEDS: Empagliflozin 10 MG TABLET PO (08:54)
[2024-11-30] MEDS: Cholecalciferol (Vitamin D3) 25 MCG TABLET 50 MCG PO (08:54)
[2024-11-30] MEDS: Atorvastatin Calcium 10 MG TABLET PO (08:54)
[2024-11-30] MEDS: methylPREDNISolone Sod Succ 40 MG/ML VIAL IVPUSH (08:54)
[2024-11-30] MEDS: Furosemide 20 MG TABLET PO (08:54)
[2024-11-30] MEDS: Cyanocobalamin (Vitamin B-12) 1,000 MCG TABLET 1000 MCG PO (08:54)
[2024-11-30] MEDS: 0.9 % Sodium Chloride Flush 3 ML SYRINGE IVFLUSH (08:59)
--- NOTE | 2024-11-30 09:13 | MHC.CM.PN ---
Addendum entered by Claudia Washington RN 11/30/24 11:11: CM MET W/PT'S DTR CAIO AT BEDSIDE VIA WOOD HEEL BACK LINER TO CLARIFY. Addendum entered by Claudia Washington RN 11/30/24 11:11: CLARIFICATION PT ACTIVE W/[facility], PT'S DTR/CAIO IS PT'S CATERING COORDINATOR AND DECLINES NEED FOR VNA SERVICES. Original Note: IMM 11/30/24 DELIVERED TO BEDSIDE TO DTR/FAMILY AT BEDSIDE, DTR CAIO AGREEABLE TO DC PLAN, PT MEDICALLY CLEARED FOR DC HOME W/RESUMPTION OF [facility], [employer]IST HRS AND FAMILY SUPPORT, [facility] FOR BLS TRANSPORT AT 11AM
--- NOTE | 2024-11-30 09:15 | MHC.SL.SWA ---
Speech Pathologist Impression: Risk of Aspiration Due to: Reduced Cognition Dysphasia Diet Status: Liquid Consistency and Strategies for Safe Swallow: Liquid Intake Recommendation: Thin Liquid Intake Strategies: Small Sips Solid Food Consistency: Dietary Recommendations: Chopped/Advanced (NDD3) Additional Modifications to Solid Foods: Oral Medication Intake: Crushed with Puree Please contact the pharmacy regarding appropriate crushable or liquid drug formulations that are available whenever modified delivery is recommended. Compensatory Strategies and Precautions to be Taken for Safe Swallow: Sitting Upright (90 deg) Small Bites and Sips Alternate Liquids/Solids Rate of Ingestion Change Supervision While Eating and Drinking for Safe Swallow: Total Assistance (1:1) Foods to Avoid: Swallowing Recommended Treatments: Compens. Strategy Educat. Recommendation for Speech: Inpatient Speech Therapy Comment: Pt oropharyngeal swallow at baseline, family providing excellent support in cueing/implementing safety strategies to reduce risk for aspiration. No further skilled ST indicated at this time. Frequency/Duration: Daily as indicated Date Range for Service Req: Timeline to reassess: Level Vial Sealer Clinican/Clinical Fellow: No Supervisory Statement: I have reviewed and agree with the student/clinical fellow's documentation: N/A Speech Language Pathologist: Mercedes Lundberg M.S., CCC-CHRONOMETER ASSEMBLER AND ADJUSTER
--- NOTE | 2024-11-30 09:51 | P.DS_ITS ---
DS: Providers Provider Date of Service: 11/30/24 Date of admission: 11/26/24 15:33 Date of discharge: 11/30/24 Primary care physician: Kati May MD Consults: 11/26/24 15:39 Consult to General Surgery Routine Consulting [place] [facility] Reason for consultation: abdominal pain ?psbo Has provider been notified: No 11/27/24 11:41 Consult to Wound Care Routine Reason for consultation: stage 2 anel buttock 11/29/24 10:48 Consult to Infectious Diseases Routine Consulting Provider[place] [facility] Reason for consultation: STrep viridans uti, echo, esbl DS: Diagnosis Discharge Diagnosis (1) Diarrhea: Status: Acute (2) KEVIN (acute kidney injury): Status: Acute (3) Metabolic encephalopathy: Status: Acute (4) Insomnia: Status: Acute (5) UTI (urinary tract infection): Status: Acute DS: Summary Hospital Course Hospital Course: History and physical as per admitting provider. This is an 84-year-old female with advanced dementia who was brought to the emergency department by her family due to abdominal pain and diarrhea. The patient is unable to provide any significant history therefore history is obtained from the patient's daughter and son at the bedside. History is obtained with the assistance of a shipyard painting supervisor. Family states that prior to arrival patient began having diarrhea and appear to be uncomfortable. Due to advanced dementia she has difficulty communicating and is unable to voice any specific complaints. On arrival to the emergency department she was febrile with a temperature of 100.9 degrees: Tachycardic heart rate 100 and tachypneic with a respiratory rate of 24. Lab work revealed no leukocytosis, chemistry showed KEVIN with a creatinine of 1.43 and a lactic acid of 2.2. Urinalysis was consistent with UTI. CT scan of the abdomen showed ileus versus possible partial small-bowel obstruction. She received 30 cc/kg bolus in the emergency department, IV antibiotics. She was also reportedly agitated and received oral Ativan and oral Zyprexa. Influenza A/B, RSV and COVID-19 were negative. Patient had a large episode of vomiting in the emergency department following which time her oxygen saturations dropped to the high 80s and she was placed on 2 L of supplemental oxygen. Patient will be admitted for further management of UTI, partial small bowel obstruction and probable aspiration. 84-year-old woman treated for sepsis secondary to ESBL E coli and strep viridans UTI with possible aspiration pneumonia. Patient was treated with IV ceftriaxone and Flagyl, blood cultures remained negative. Seen evaluated by Infectious Disease provider who recommended total 14 days of antibiotics with Bactrim. Acute respiratory failure secondary to aspiration pneumonia, hypoxia and COPD exacerbation. Started on albuterol and systemic steroids. Patient was treated with BiPAP support for hypercapnic respiratory failure. Patient recovered well after BiPAP support per ICU attending. She likely developed aspiration pneumonia secondary to vomiting from ileus. Patient was seen evaluated by speech therapy with recommendation for chopped diet. Patient's diet was gradually increased and has had no other episodes of vomiting or aspiration. Plan is to discharge patient home with antibiotics to complete for ESBL UTI. KEVIN. Secondary to GI losses. Improved with IV fluids Alzheimer's dementia with behavioral disturbances. At baseline lives with family members. Continue Seroquel and trazodone Diabetes mellitus type 2. Continue home medications Hyperlipidemia. Continue statin Morbid obesity. BMI 44.9. Discussed importance of weight management as this may be contributing to worsening of other comorbidities Time Attestation Discharge Coordination Time (in mins): 45 Quality: Safe Use of Opioids Does Pt have an Active Cancer Diagnosis on the Problem List?: No Quality: Stroke Does the patient have a stroke diagnosis?: No Physical Exam Vital Signs: Vital Signs: Last Vital Signs Temp 98.5 F 11/30/24 07:32 Pulse 84 11/30/24 07:56 Resp 17 11/30/24 07:56 BP 172/78 H 11/30/24 07:32 Pulse Ox 96 11/30/24 07:32 O2 Del Method Room Air 11/30/24 07:32 O2 Flow Rate 1 11/29/24 11:17 FiO2 28 11/27/24 15:00 BMI result Body Mass Index 44.9 Appearing in no acute distress head is normocephalic atraumatic eyes pupils are PERRLA sclera is anicteric mouth throat mucous membranes are intact and moist neck is supple no lymphadenopathy, no JVD noted lung sounds are clear to auscultation heart regular rate rhythm, clear S1, S2 positive bowel sounds, abdomen is soft, nontender neuro patient is alert, dementia DS: Data Data Completed and Pending Labs on day of discharge: Laboratory Results - last 24 hr 11/29/24 11/29/24 11/30/24 12:01 18:02 06:08 POC Glucose 231 H 131 H 105 Preliminary micro results at discharge 11/26/24 13:21 Blood Culture - Preliminary Blood - Venous No growth after 48 hours. 11/26/24 12:22 Blood Culture - Preliminary Blood - Venous No growth after 48 hours. Discharge Plan Discharge Anticipated Discharge Date/Time: 11/30/24 09:45 Patient Disposition: Home Health Service Discharge Diagnosis: Sepsis ESBL E coli and strep viridans UTI Aspiration pneumonia Acute respiratory failure with hypoxia Nausea/vomiting/diarrhea/abdominal pain Ileus KEVIN Referrals: [facility] [Outside] - 1 Day (RESUMPTION OF SERVICES ) Kati Huber MD [Primary Care Provider] - 1 Week Discharge Medications: New albuterol sulfate 2.5 mg /3 mL (0.083 %) solution for nebulization 2.5 mg inhalation Q4H PRN (Reason: shortness of breath or wheezing) Qty: 180 0RF sulfamethoxazole-trimethoprim [Bactrim DS] 800-160 mg tablet 1 tab PO BID Qty: 20 0RF Continued (DME) lancets 28 gauge misc See Rx Instructions topical DAILY Qty: 100 11RF Rx Instructions: Use 1 lancet twice a day (DME) collagen hydrogel wound dressing See Rx Instructions .Route .MEDSUPPLY Qty: 1 3RF Rx Instructions: As directed (DME) pen needle, diabetic [Comfort EZ Pen [place]] 31 gauge x 5/16 needle See Rx Instructions .Route Qty: 50 6RF Rx Instructions: As directed (DME) FreeStyle Lite Strips Strip See Rx Instructions .ROUTE .MEDSUPPLY Qty: 100 2RF Rx Instructions: Use 1 test strip once a day (DME) blood-glucose meter [FreeStyle Lite Meter] Kit See Rx Instructions .Route Qty: 1 0RF Rx Instructions: As directed (DME) lancets [FreeStyle Lancets] 28 gauge misc See Rx Instructions .Route Qty: 100 3RF Rx Instructions: As directed (DME) adult diapers pull-ups X-large See Rx Instructions .Route .MEDSUPPLY Qty: 180 6RF Rx Instructions: Use 1 diaper 6 times a day (DME) wipes See Rx Instructions .Route .MEDSUPPLY Qty: 200 6RF Rx Instructions: As directed (DME) underpads [Bed Underpads] Pad See Rx Instructions .Route Qty: 150 0RF Rx Instructions: As directed (DME) Large femanine pads See Rx Instructions .Route .MEDSUPPLY Qty: 100 0RF Rx Instructions: As directed furosemide 20 mg tablet 20 mg PO DAILY Qty: 90 1RF rosuvastatin 20 mg tablet 20 mg PO DAILY 90 Days Qty: 90 1RF Jardiance 10 mg tablet 10 mg PO DAILY 90 Days Qty: 90 1RF cholecalciferol (vitamin D3) 50 mcg (2,000 unit) capsule 50 mcg PO DAILY 90 Days Qty: 90 1RF cyanocobalamin (vitamin B-12) 1,000 mcg Tablet 1,000 mcg PO DAILY trazodone 100 mg tablet 100 mg PO BEDTIME quetiapine 50 mg tablet 50 mg PO BEDTIME (DME) blood sugar diagnostic Strip See Rx Instructions Not Applicable DAILY Qty: 10 Rx Instructions: As directed (DME) blood-glucose meter Kit See Rx Instructions .ROUTE DAILY Qty: 1 Rx Instructions: As directed ([facility] [place]) blood pressure test kit-large [[employer] Arm BP Monitor] Kit See Rx Instructions .ROUTE .MEDSUPPLY Qty: 1 0RF Rx Instructions: As directed Tradjenta 5 mg tablet 5 mg PO DAILY 90 Days Qty: 90 1RF lactulose 10 gram/15 mL solution 10 g PO BEDTIME PRN (Reason: constipation) 30 Days Qty: 237 1RF Discharge Orders: Discharge Order (Routine); Ordered 11/30/24 Ordered By: Colette Wright Diet: Advance to usual diet Activity on Discharge: Monitor for any signs of aspiration including coughing Stand Alone Forms: Patient Portal Discharge page Print Language: Armenian Care Plan Goals: Complete course of antibiotics with Bactrim Complete short steroid taper Health Concerns: Sepsis ESBL E coli and strep viridans UTI Aspiration pneumonia Acute respiratory failure with hypoxia Nausea/vomiting/diarrhea/abdominal pain Ileus KEVIN Plan of Treatment: Follow-up with primary care provider as needed Take all medications as prescribed Assessment: See discharge summary
[2024-11-30 11:17] VITALS: BP 168/84; PULSE 66; RESP 17; TEMP 36.8; O2SAT 93
== END 2024-11-30 11:50 | disposition home health service (06) | DRG 871 ==
LOC: HO.ED 14:37 → HO.EDOVER 16:01 → HO.IMC 11-27 03:41 → HO.ICU 11-27 11:05 → HO.IMC 11-27 20:03
PROVIDERS: Internal Medicine Critical Care Medicine; Physician Assistant; Admitting Provider Physician Assistant Medical; Emergency Provider Emergency Medicine; PCP Internal Medicine; Visit Provider Nurse Practitioner Acute Care
DX: A41.51 Sepsis due to Escherichia coli [E. coli] (principal); G93.41 Metabolic encephalopathy; J69.0 Pneumonitis due to inhalation of food and vomit; J96.01 Acute respiratory failure with hypoxia; J96.02 Acute respiratory failure with hypercapnia; Z16.12 Extended spectrum beta lactamase (ESBL) resistance; J44.1 Chronic obstructive pulmonary disease with (acute) exacerbation; N17.9 Acute kidney failure, unspecified; E87.21 Acute metabolic acidosis; Z68.41 Body mass index [BMI] 40.0-44.9, adult; F02.818 Dementia in other diseases classified elsewhere, unspecified severity, with other behavioral disturbance; K56.7 Ileus, unspecified; N39.0 Urinary tract infection, site not specified; I50.9 Heart failure, unspecified; G47.00 Insomnia, unspecified; D64.9 Anemia, unspecified; E66.01 Morbid (severe) obesity due to excess calories; Z71.3 Dietary counseling and surveillance; E78.5 Hyperlipidemia, unspecified; G30.9 Alzheimer's disease, unspecified; Z20.822 Contact with and (suspected) exposure to COVID-19; Z88.0 Allergy status to penicillin; Z79.899 Other long term (current) drug therapy
CPT/HCPCS: 0241U; 36415; 36600; 71045; 74177; 80048; 80053; 81001; 82140; 82803; 82947; 83605; 83690; 83735; 84484; 85007; 85025; 85027; 87040; 87086; 87088; 87186; 92610; 93005; 94640; 94660; 97163; 99285; J0696; J1644; J1836; J2405; J2470; J2919; J7120; Q9967

== ENCOUNTER → 2024-11-26 11:51 | Outpatient (BNV) | payer OTHER, SELFPAY | PROVIDERS: Admitting Provider Physician Assistant Medical; Emergency Provider Emergency Medicine; PCP Internal Medicine; Visit Provider Internal Medicine Cardiovascular Disease | DX: I49.1 Atrial premature depolarization (principal); I51.7 Cardiomegaly; R00.0 Tachycardia, unspecified | CPT/HCPCS: 93010 ==

== ENCOUNTER → 2024-11-26 11:51 | Outpatient (BNV) | payer OTHER, SELFPAY | PROVIDERS: Emergency Provider Emergency Medicine; PCP Internal Medicine; Visit Provider Radiology Diagnostic Radiology | DX: K57.30 Diverticulosis of large intestine without perforation or abscess without bleeding (principal); K56.7 Ileus, unspecified; R09.02 Hypoxemia | CPT/HCPCS: 71045; 74177 ==

== ENCOUNTER 2024-11-26 15:33 | Outpatient (BNV) | payer OTHER, SELFPAY | END 2024-11-27 12:15 | PROVIDERS: Admitting Provider Physician Assistant Medical; Emergency Provider Emergency Medicine; PCP Internal Medicine; Visit Provider Radiology Diagnostic Radiology | DX: R06.89 Other abnormalities of breathing (principal) | CPT/HCPCS: 71045 ==

== ENCOUNTER → 2024-11-26 15:33 | Outpatient (BNV) | payer OTHER, SELFPAY | PROVIDERS: Admitting Provider Physician Assistant Medical; Emergency Provider Emergency Medicine; PCP Internal Medicine; Visit Provider Surgery | DX: R19.7 Diarrhea, unspecified (principal) | CPT/HCPCS: 99222; 99232 ==

== ENCOUNTER → 2024-11-26 15:33 | Outpatient (BNV) | payer OTHER, SELFPAY | PROVIDERS: Admitting Provider Physician Assistant Medical; Emergency Provider Emergency Medicine; PCP Internal Medicine; Visit Provider Internal Medicine | DX: R19.7 Diarrhea, unspecified (principal); N17.9 Acute kidney failure, unspecified; G93.41 Metabolic encephalopathy; G47.00 Insomnia, unspecified; N39.0 Urinary tract infection, site not specified | CPT/HCPCS: 99222 ==

== ENCOUNTER → 2024-11-26 15:33 | Outpatient (BNV) | payer OTHER, SELFPAY | PROVIDERS: Admitting Provider Physician Assistant Medical; Emergency Provider Emergency Medicine; PCP Internal Medicine; Visit Provider Physician Assistant Medical | DX: R19.7 Diarrhea, unspecified (principal); N17.9 Acute kidney failure, unspecified; G93.41 Metabolic encephalopathy; G47.00 Insomnia, unspecified; N39.0 Urinary tract infection, site not specified | CPT/HCPCS: 99223; 99232; 99233; 99239 ==

== ENCOUNTER → 2024-11-26 15:33 | Outpatient (BNV) | payer OTHER, SELFPAY | PROVIDERS: Admitting Provider Physician Assistant Medical; Emergency Provider Emergency Medicine; PCP Internal Medicine; Visit Provider Internal Medicine Critical Care Medicine | DX: N17.9 Acute kidney failure, unspecified (principal); I10 Essential (primary) hypertension; E78.5 Hyperlipidemia, unspecified; R15.9 Full incontinence of feces; N39.0 Urinary tract infection, site not specified; E87.20 Acidosis, unspecified; Z96.653 Presence of artificial knee joint, bilateral; M17.0 Bilateral primary osteoarthritis of knee; G93.41 Metabolic encephalopathy; G30.9 Alzheimer's disease, unspecified; F02.80 Dementia in other diseases classified elsewhere, unspecified severity, without behavioral disturbance, psychotic disturbance, mood disturbance, and anxiety | CPT/HCPCS: 99222 ==

== ENCOUNTER 2024-12-02 12:44 | Outpatient (AMB) | payer OTHER, SELFPAY ==
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
[2024-12-02 12:53] VITALS: BP 140/80; PULSE 93; TEMP 36.5; O2SAT 96
--- OUTSIDE RECORDS SUMMARY | 2024-12-02 14:20 | XMS_ITS | Clinical Summary ---
Author Organization [facility] Address [address] [place] [address] Phone Care Team Providers Care Range Master Name Role Phone Physician, Pcp Unknown Primary [...] Upcoming Encounters Date Type Department Care Team ([facility] Contact Info) Description 12/19/2024 2:15 PM EDT Consult Orthopedic Surgery - [place] [id number] [phone] Loc [facility] [address] [address] Health Maintenance Due Date Last Done Comments [...] patient's age to complete this topic Insurance [facility] [address] [id number] [employer] MEDICARE Member Subscriber Plan / Payer (Ef fective 2019-Present) Name:Amos Love Relation to Subscriber:Self Name:Amos Love Payer ID:[id number] Group ID:[id number] Type:Not on file Address: [address] [phone] Care Teams Range Master Relationship Specialty Start Date End Date Physician, Pcp Unknown PCP - General 11/08/24
--- OUTSIDE RECORDS SUMMARY | 2024-12-02 14:20 | XMS_ITS | Data Portability ---
Author Organization [employer] [place] [employer] Address [address] [place] [phone] Care Team Providers Care Beater Boss Name Role Phone HIM CCA OTHER Assessment Encounter Date Assessment Date Assessment LastModified by Organization Details LastModified Time 08/24/2023 08/24/2023 I have reviewed and agree with the assessment and plan as documented by the early morning. I provided real time medical direction for this encounter and was immediately available to provide additional phone based assistance as needed. History as noted by early morning. Pt with history of dementia. Per family, [...] nitrite, trace blood. Urine culture sent to [facility]. Impression: Pt with severe dementia, noted [...] leukocytes and nitrite. Urine culture sent to [facility] lab. Pt's symptoms and low grade [...] Assessment and Plan as documented by the Rotary Operator. Patient given the opportunity to ask questions. [...] 1 episode of diarrhea this morning. Per early morning on the scene, vital signs initially showed [...] Organization Details Last Modified Time Details Appointments None recorded. Lab glucose, fingerstick , blood [facility]24 [facility], [address] [place] [address], [phone], 5 17:08:33 rapid flu (A+B) [address] [facility], [address] [place] [address], [address], 5 11:09:29 rapid SARS CoV 2 Ag, QL IA, respiratory specimen [address] [facility], [address] [place] [address], [phone], 5 11:09:27 glucose, fingerstick , blood 2024 025 [facility], [address] [place] [address], [phone], 5 17:08:32 culture, urine 2022 023 [facility] (Centralized Electronic Ordering - All Locations), Patient Can Go To The Location Of Their Choice, [id number] [phone] 08:30:05 [facility]inalysis, dipstick [facility] [address] [place] [address], [phone], 3 16:01:45 rapid SARS CoV 2 Ag, QL IA, respiratory specimen 2022 [facility] [address] [place] [address], [phone], 3 16:01:46 rapid flu (A+B) 2022 [facility] [address] [place] [address], [phone], 16:01:47 glucose, fingerstick , blood [address] [facility] [facility], [address] [place] [address], [phone], 16:11:01 Referral None recorded. Procedures None recorded. Surgeries None recorded. Imaging None recorded. Medication Orders cefpodoxime 200 mg tablet 2022 023 [id number], [address], [place], [phone], 16:05:13 Patient TargetsNo targets recorded. Patient InstructionsNo instructions recorded. Reason for Referral None Reported. Results Created Date Observation Date Name Description Value Unit Range Abnormal Flag Note LastModifiedBy Organization Detail LastModifiedTime 08/24/2008/24/2023 URINE CULTU RE specimen description URINE Not Available [facility] (Centralized Electronic Ordering - All Locations) Patient Can Go To The Location Of Their Choice, [id number] 08/27/2023 08:30:05 08/24/2008/24/2023 URINE CULTU RE special requests NONE Not Available [facility] (Centralized Electronic Ordering - All Locations) Patient Can Go To The Location Of Their Choice, [id number] 08/27/2023 08:30:05 08/24/20 23 08/27/2023 URINE CULTU RE culture abnormal >100, 000 [...] Go To The Location Of Their Choice, [id number] 08/27/2023 08:30:05 08/24/20 23 08/27/2023 URINE CULTU RE report status FINAL 2022 Not Available [facility] (Centralized Electronic Ordering - All Locations) Patient Can Go To The Location Of Their Choice, 08/27/2023 08:30:05 08/24/2008/27/2023 URINE CULTU RE organism ORGAN ISM >100, [...] Choice, 08/27/2023 08:30:05 08/24/2008/27/2023 URINE CULTU RE ampicillin AMPICI LLIN RESIST [...] Choice, 08/27/2023 08:30:05 08/24/2008/27/2023 URINE CULTU RE cefepime CEFEPI ME RESIST ANT resistant Not Available [facility] (Centralized Electronic Ordering - All Locations) Patient Can Go To The Location Of Their Choice, 08/27/2023 08:30:05 08/24/2008/27/2023 URINE CULTU RE ceftriaxone CEFTRI AXONE RESIST ANT resistant Not Available [facility] (Centralized Electronic Ordering - All Locations) Patient Can Go To The Location Of Their Choice, 08/27/2023 08:30:05 08/24/20 08/27/2023 URINE CULTU RE ciprofloxaci n CIPROF LOXACI N RESIST ANT resistant Not Available [facility] (Centralized Electronic Ordering - All Locations) Patient Can Go To The Location Of Their Choice, 08/27/2023 08:30:05 08/24/20 23 08/27/2023 URINE CULTU RE ertapenem ERTAPE NEM SUSCEP TIBLE susceptib le Not Available [facility] (Centralized Electronic Ordering - All Locations) Patient Can Go To The Location Of Their Choice, 08/27/2023 08:30:05 08/24/20 23 08/27/2023 URINE CULTU RE gentamicin GENTAM ICIN SUSCEP TIBLE susceptib le Not Available [facility] (Centralized Electronic Ordering - All Locations) Patient Can Go To The Location Of Their Choice, [id number] 08/27/2023 08:30:05 08/24/20 23 08/27/2023 URINE CULTU RE levofloxacin LEVOFL OXACIN RESIST ANT resistant Not Available [facility] (Centralized Electronic Ordering - All Locations) Patient Can Go To The Location Of Their Choice, [id number] 08/27/2023 08:30:05 08/24/20 23 08/27/2023 URINE CULTU RE nitrofuranto in NITROF URANTO IN SUSCEP TIBLE susceptib le Not Available [facility] (Centralized Electronic Ordering - All Locations) Patient Can Go To The Location Of Their Choice, [id number] 08/27/2023 08:30:05 08/24/20 23 08/27/2023 URINE CULTU RE piperacillin /tazobactam PIPERA CILLIN /TAZOB AC SUSCEP TIBLE susceptib le Not Available [facility] (Centralized Electronic Ordering - All Locations) Patient Can Go To The Location Of Their Choice, [id number] 08/27/2023 08:30:05 08/24/20 23 08/27/2023 URINE CULTU RE trimeth/sulf amethox TRIMET H/SULF AMETHO X RESIST ANT resistant Not Available [facility] (Centralized Electronic Ordering - All Locations) Patient Can Go To The Location Of Their Choice, [id number] 08/27/2023 08:30:05 08/24/20 23 08/24/2023 gluco se, finge rstic k, blood Blood Glucose: mg/dl 161 Not Available [facility] - [facility] [address] [place] [address], [phone], 08/24/2023 16:10:47 08/24/20 23 08/24/2023 rapid flu (A+B) Flu negati ve Not Available [facility] [address] [place] [address], [address], 08/24/2023 15:58:49 08/24/20 23 08/24/2023 rapid SARS CoV 2 Ag, QL IA, respi rator y speci men rapid SARS CoV 2 Ag, QL IA, respiratory specimen negati ve Not Available [facility] [address] [place] [address], [phone], 08/24/2023 15:58:48 08/24/20 23 08/24/2023 urina lysis , dipst ick Leukocytes trace Not Available [facility] [address] [place] [address], [phone], 08/24/2023 15:58:31 08/24/20 23 08/24/2023 urina lysis , dipst ick Nitrite positi ve Not Available [facility] [address] [place] [address], [address], 08/24/2023 15:58:31 08/24/20 23 08/24/2023 urina lysis , dipst ick Blood trace Not Available [facility] - [facility] [address] [place] [address], [phone], 08/24/2023 15:58:31 11/27/19 25 11/26/2024 rapid SARS CoV 2 Ag, QL IA, respi rator y speci men rapid SARS CoV 2 Ag, QL IA, respiratory specimen negati ve Not Available [facility] [address] [place] [address], [address], 11/26/2024 11:08:56 11/27/19 25 11/26/2024 rapid flu (A+B) Flu negati ve Not Available [facility] [address] [place] [address], [address], 11/26/2024 11:08:54 Result Notes None recorded. Medical Equipment None Reported. Allergies Allergen ID Allergen Name Allergen Category Reaction Reaction Severity Criticality Documentation Date Start Date Code Code System Note Provider Name and Address Organization Details Recorded Time 3973 Product containin g penicilli n (product) medicatio n Not available Not available Not available 08/27/2023 10930 8001 SNOMED Not Available [facility] - production 4 03:45:48 Medications Name Sig Start Date Stop [...] 147 mm[Hg] 60 mm[Hg] Edenilson Ferguson MD [address] [place] [address],[address], [place], [address] [address] - [facility] 3 15:25:38 Date Recorded Respiratory rate Oxygen saturation Oxygen saturation in Arterial blood by Pulse oximetry Body temperature Heart rate Systolic blood pressure Diastolic blood pressure Provider Name and Address Organization Details Last Updated DateTime 3 18 /min 99 % 99 % 99.6 [degF] 92 /min 147 mm[Hg] 60 mm[Hg] Not Available [facility] - production 3 16:49:26 Date Recorded Oxygen saturation Oxygen saturation in Arterial blood by Pulse oximetry Heart rate Respiratory rate Body temperature Systolic blood pressure Diastolic blood pressure Systolic blood pressure Diastolic blood pressure Provider Name and Address Organization Details Last Updated DateTime 5 93 % 93 % 121 /min 18 /min 99.2 [degF] 105 mm[Hg] 62 mm[Hg] 140 mm[Hg] 80 mm[Hg] Not Available [facility] - production 11:04:36 Social History None recorded. Functional Status None recorded. Mental Status None recorded. Family History Nothing Reported. Medical History No medical history recorded. Gynecological HistoryNo gynecological history recorded. Obstetrics History GPAL:G 0 P 0 0 0 0 Past Encounters Encounter ID Performer Location Encounter Start Date Encounter Closed Date Diagnosis/Indication Diagnosis SNOMED-CT Code Diagnosis ICD10 Code Diagnosis Note [id number] Edenilson Ferguson MD [facility] - [facility] [address] [place] [phone] 08/24/2023 15:24:05 08/25/2023 09:32:22 Urinary symptoms 891843039 R39.9 Acute urin latisha tract infection 916111456 N39.0 [id number] [facility] [address] [place] [phone] 11/26/2024 10:35:26 11/26/2024 17:07:05 Altered mental status 683813857 R41.82 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 [id number] 96887 E11.65 Health Concerns Section Related Observation LastModified by Organization Detai ls LastModified Time None Recorded Concern Status LastModified by Organization Details LastModified Time None Recorded Advance Directives Directive None Recorded Payers Encounter Date Sequence Insurance Name Policy Number Policy Topete Covered Member ID Topete Member ID Guarantor Name 08/24/2023 1 [facility] - DOS ON OR AFTER 2022 - DUAL ELIGIBLE - USP OPTIONS AND ONE CARE (MEDICARE REPLACEMENT/AD VANTAGE - HMO) Amos Burroughs [id number] Amos Burroughs 11/26/2024 1 [facility] - DOS ON OR AFTER 2022 - DUAL ELIGIBLE - USP OPTIONS AND ONE CARE (MEDICARE REPLACEMENT/AD VANTAGE - HMO) Amos Burroughs [id number] Amos Burroughs Notes Date Note Type Note Provider Name and Address Organization Details Recorded Time 08/24/2023 text/html This was a supervised home visit with early morning Laura Hendrickson. CRC Nursing Assessment: Reason For Request: Pt has [...] 87/68, 129/91 and last reading around 2p , member unable to verbalize any associated symptoms. Member blood sugars have also been running HI when they are usually normal, today they have been 151-235. Family would like member evaluated. .................. .................. .................. .................. .................. .................. .................. ............... Rotary Operator Note From Laura Hendrickson: Sent to a [...] unremarkable; Extremities: unremarkable; Skin: pink, warm, dry; [facility] [place] and orders rapid covid test, rapid flu test, and urine dip. Rapid covid test: neg; Rapid flu test: neg; Straight cath performed: urine: dark yellow, clear, concentrated; Urine dip: nitrites: positive; Full results: uploaded to [employer]; [facility] [place] and orders urine culture to be sent to [facility]. [facility] [place] pt's pharmacy. Pt's family will pick up man prescription tonight. Red flags discussed. Family has no further questions. .................. .................. .................. .................. .................. .................. .................. ............... Disposition: Fulfilled Edenilson Ferguson MD [address] [place] [address],[address], [place], [phone], [employer] [facility] [employer] 08/24/2023 18:58:41 11/26/2024 text/html CRC Nurse Triage [...] Diabetes Mellitus Type 2 PMH Reviewed at 11/26/2024: Allergies Reviewed at 11/26/2024: Comments: Additional PMH: Emphysema Painter Spray verified the patient's name//address and phone number. Outsole Leveler# [id number] used for triage assessment. Pt's daughter calling [...] emergency treatment if needed -Bethel Childs RN Rotary Operator Organization Information for [employer] [employer] Legal Name: [employer]? Address: [address] [place] [address], Material Handler Floorperson: Primo Khanna MD CLIA No.: [id number] Rotary Operator POC Test Results from [employer] [facility] Blood Glucose Measurement (10:38:13) Blood Glucose: 214 mg/dL Rapid COVID antigen (10:49:38) COVID: - Rapid influenza antigen (10:49:39) Flu: - .................. .................. .................. .................. .................. .................. .................. ............... Rotary Operator Note From ShanikaDao: [facility] was called to scene to evaluate [...] temp or 99.2. Pt has severe dementia, lao speaking only, and very uncooperative. [facility] [place] and a flu/covid test were run and came back negative. wanted bloodwork, which anyi attempted once on the non restricted arm, which was very scarred, Pt became combative grabbed and scratched at medic, and refused a second time. Without bloodwork, made the decision to have the pt go to the hospital where test could be more safely done. [facility] [place] Lab Orders: glucose, fingerstick, blood: Performed rapid flu (A+B): Performed rapid SARS CoV 2 Ag, QL IA, respiratory specimen: Performed glucose, fingerstick, blood: Performed .................. .................. .................. .................. .................. .................. .................. ............... [facility] [place] Consulted: Ely Leija .................. .................. .................. .................. .................. .................. .................. ............... Disposition: Fulfilled Ely Leija MD [address] [facility],[address], [place], [phone], [employer] 11/26/2024 12:41:01 OBGyn Episode No OBEpisode recorded.
--- OUTSIDE RECORDS SUMMARY | 2024-12-02 14:20 | XMS_ITS | Continuity of Care Document ---
Author Organization [employer] Address [address] [place] [phone] Care Team Providers Care Soaping Department Supervisor Name Role Phone HIM CCA OTHER Assessment Encounter Date Assessment Date Assessment LastModified by Organization Details LastModified Time 11/26/2024 11/26/2024 I provided real -time medical direction via phone for this encounter and was available for additional phone-based assistance as needed. I have reviewed and agree with the Assessment and Plan as documented by the Author. Patient given the opportunity to ask questions. [...] 1 episode of diarrhea this morning. Per management professor on the scene, vital signs initially showed [...] expect call can be made. Allergies: Reviewed [email or web address] Not available 11/26/2024 12:40:53 Plan of Treatment Reminders Order Date Submit Date Provider Last Modified By Organization Details Last Modified Time Details Appointments None recorded. Lab glucose, fingerstick , blood 2024 025 [facility], [address] [place] [address], [address], 17:08:33 rapid flu (A+B) [address], [address] [place] [address], [address], 11:09:29 rapid SARS CoV 2 Ag, QL IA, respiratory specimen [address], [address] [place] [address], [address], 11:09:27 glucose, fingerstick , blood 2024 025 [facility], [address] [place] [address], [phone], 17:08:32 Referral None recorded. Procedures None recorded. Surgeries None recorded. Imaging None recorded. Medication Orders None recorded. Patient TargetsNo targets recorded. Patient InstructionsNo instructions recorded. Reason for Referral None Reported. Results Created Date Observation Date Name Description Value Unit Range Abnormal Flag Note LastModifiedBy Organization Detail LastModifiedTime 11/27/1911/26/2024 rapid SARS CoV 2 Ag, QL IA, respi rator y speci men rapid SARS CoV 2 Ag, QL IA, respiratory specimen negati ve Not Available [facility] ed [address] [place] [address], [phone], 11/26/2024 11:08:56 11/27/1911/26/2024 rapid flu (A+B) Flu negati ve Not Available [facility] ed [address] [place] [address], [address], 11/26/2024 11:08:54 Result Notes None recorded. Medical Equipment None Reported. Allergies Allergen ID Allergen Name Allergen Category Reaction Reaction Severity Criticality Documentation Date Start Date Code Code System Note Provider Name and Address Organization Details Recorded Time 3973 Product containin g penicilli n (product) medicatio n Not available Not available Not available 08/27/2023 06447 8001 SNOMED Not Available [facility] - production [...] Available No t Available Vitals Date Recorded Oxygen saturation Oxygen saturation in Arterial blood by Pulse oximetry Heart rate Respiratory rate Body temperature Systolic blood pressure Diastolic blood pressure Systolic blood pressure Diastolic blood pressure Provider Name and Address Organization Details Last Updated DateTime 5 93 % 93 % 121 /min 18 /min 99.2 [degF] 105 mm[Hg] 62 mm[Hg] 140 mm[Hg] 80 mm[Hg] Not Available [employer] [facility] - production 5 11:04:36 Social History None recorded. Functional Status None recorded. Mental Status None recorded. Family History Nothing Reported. Medical History No medical history recorded. Gynecological HistoryNo gynecological history recorded. Obstetrics History GPAL:G 0 P 0 0 0 0 Past Encounters Encounter ID Performer Location Encounter Start Date Encounter Closed Date Diagnosis/Indication Diagnosis SNOMED-CT Code Diagnosis ICD10 Code Diagnosis Note [id number] Ely Leija MD [facility] - [facility] [address] [place] [phone] 11/26/2024 10:35:26 11/26/2024 17:07:05 Altered mental status 083260255 R41.82 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 [id number] 46274 E11.65 Health Concerns Section Related Observation LastModified by Organization Detai ls LastModified Time None Recorded Concern Status LastModified by Organization Details LastModified Time None Recorded Payers Encounter Date Sequence Insurance Name Policy Number Policy Topete Covered Member ID Topete Member ID Guarantor Name 11/26/2024 1 [facility] - DOS ON OR AFTER 2022 - DUAL ELIGIBLE - CARE HOME OPTIONS AND ONE CARE (MEDICARE REPLACEMENT/AD VANTAGE - HMO) Amos Burroughs [id number] Amos Burroughs Notes Date Note Type Note Provider Name and Address Organization Details Recorded Time 11/26/2024 text/html CRC Nurse Triage Notes (Dl [...] Type 2 PMH Reviewed at 11/26/2024 - Allergies Reviewed at 11/26/2024: Comments: Additional PMH: Emphysema Geriatric Social Work Professor verified the patient's name//address and phone number. Roadway Designer# [id number] used for triage assessment. Pt's daughter calling [...] emergency treatment if needed -Bethel Childs RN Author Organization Information for [employer] Legal Name: [employer]? Address: [address] [place] [address], Dry Cleaner Apprentice: Primo Khanna MD CLIA No.: [id number] Author POC Test Results from [employer] [facility] Blood Glucose Measurement (10:38:13) Blood Glucose: 214 mg/dL Rapid COVID antigen (10:49:38) COVID: - Rapid influenza antigen (10:49:39) Flu: - .................. .................. .................. .................. .................. .................. .................. ............... Author Note From [facility]: [facility] Medic was called to scene to evaluate [...] temp or 99.2. Pt has severe dementia, singaporean speaking only, and very uncooperative. [facility] [place] flu[place]covid test were run and came back negative. wanted bloodwork, which anyi attempted once on the non restricted arm, which was very scarred, Pt became combative grabbed and scratched at medic, and refused a second time. Without bloodwork, made the decision to have the pt go to the hospital where test could be more safely done. [facility] [place] Orders: glucose, fingerstick, blood: Performed rapid flu (A+B): Performed rapid SARS CoV 2 Ag, QL IA, respiratory specimen: Performed glucose, fingerstick, blood: Performed .................. .................. .................. .................. .................. .................. .................. ............... [facility] Consulted: Ely Leija .................. .................. .................. .................. .................. .................. .................. ............... Disposition: Fulfilled Ely Leija MD [address] [facility],[address], [place], [phone], [facility] [employer] 11/26/2024 12:41:01 OBGyn Episode No OBEpisode recorded.
== END 2024-12-02 13:32 | disposition home or self-care (01) ==
LOC: HO.HMCH 12:45
PROVIDERS: PCP Internal Medicine; Visit Provider Physician Assistant Medical
DX: N17.9 Acute kidney failure, unspecified (principal); J69.0 Pneumonitis due to inhalation of food and vomit; K56.600 Partial intestinal obstruction, unspecified as to cause; Z09 Encounter for follow-up examination after completed treatment for conditions other than malignant neoplasm; N39.0 Urinary tract infection, site not specified

== ENCOUNTER → 2024-12-02 12:44 | Outpatient (BNVA) | payer OTHER, SELFPAY | PROVIDERS: PCP Internal Medicine; Visit Provider Physician Assistant Medical | DX: Z09 Encounter for follow-up examination after completed treatment for conditions other than malignant neoplasm (principal); N17.9 Acute kidney failure, unspecified; J69.0 Pneumonitis due to inhalation of food and vomit; K56.600 Partial intestinal obstruction, unspecified as to cause; N39.0 Urinary tract infection, site not specified | CPT/HCPCS: 96127; 99496 ==

== ENCOUNTER → 2024-12-29 12:03 | Outpatient (BNVA) | payer OTHER, SELFPAY | PROVIDERS: PCP Internal Medicine; Visit Provider Internal Medicine ==

== ENCOUNTER 2025-02-07 10:34 | Outpatient (AMB) | payer OTHER, SELFPAY ==
[2025-02-07 10:41] VITALS: BP 136/72; BMI 36.3
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
--- OUTSIDE RECORDS SUMMARY | 2025-02-07 11:49 | XMS_ITS | Data Portability ---
Author Organization [employer], [place] - [employer] Address [address] [place] [phone] Care Team Providers Care Panel Beater Name Role Phone HIM CCA OTHER Assessment Encounter Date Assessment Date Assessment LastModified by Organization Details LastModified Time 08/24/2023 08/24/2023 I have reviewed and agree with the assessment and plan as documented by the software writer. I provided real time medical direction for this encounter and was immediately available to provide additional phone based assistance as needed. History as noted by software writer. Pt with history of dementia. Per family, [...] nitrite, trace blood. Urine culture sent to [facility]. Impression: Pt with severe dementia, noted [...] leukocytes and nitrite. Urine culture sent to [facility] lab. Pt's symptoms and low grade [...] Assessment and Plan as documented by the Building Construction Inspector. Patient given the opportunity to ask questions. [...] 1 episode of diarrhea this morning. Per software writer on the scene, vital signs initially showed [...] Lab glucose, fingerstick , blood [facility]24 [facility] [address] [place] [address], [phone] 5 17:08:33 rapid flu (A+B) [address], [address] [place] [address], [phone] 5 11:09:29 rapid SARS CoV 2 Ag, QL IA, respiratory specimen [address], [address] [place] [address], [phone] 5 11:09:27 glucose, fingerstick , blood 2024 025 [facility], [address] [place] [address], [phone] 5 17:08:32 culture, urine 2022 023 [facility] (Centralized Electronic Ordering - All Locations), Patient Can Go To The Location Of Their Choice, [id number] 3 08:30:05 [facility]inalysis, dipstick [address] [facility] [address] [place] [address], [phone] 3 16:01:45 rapid SARS CoV 2 Ag, QL IA, respiratory specimen [address] [facility] [address] [place] [address], [phone] 3 16:01:46 rapid flu (A+B) 2022 023 [facility], [address] [place] [address], [phone] 3 16:01:47 glucose, fingerstick , blood [address] [facility] [address] [place] [address], [phone] 3 16:11:01 Referral None recorded. Procedures None recorded. Surgeries None recorded. Imaging None recorded. Medication Orders cefpodoxime 200 mg tablet 2022 023 [id number], [address], [place], [phone], 16:05:13 Patient TargetsNo targets recorded. Patient InstructionsNo instructions recorded. Reason for Referral None Reported. Results Created Date Observation Date Name Description Value Unit Range Abnormal Flag Note LastModifiedBy Organization Detail LastModifiedTime 08/24/2008/24/2023 URINE CULTU RE specimen description URINE Not Available [facility] ([facility] Ordering - All Locations) Patient Can Go To The Location Of Their Choice, [id number] 08/27/2023 08:30:05 08/24/2008/24/2023 URINE CULTU RE special requests NONE Not Available [facility] (Centralized Electronic Ordering - All Locations) Patient Can Go To The Location Of Their Choice, [id number] 08/27/2023 08:30:05 08/24/2008/27/2023 URINE CULTU RE culture [...] Go To The Location Of Their Choice, [id number] 08/27/2023 08:30:05 08/24/2008/27/2023 URINE CULTU RE report status FINAL 2022 Not Available [facility] (Centralized Electronic Ordering - All Locations) Patient Can Go To The Location Of Their Choice, [id number] 08/27/2023 08:30:05 08/24/2008/27/2023 URINE CULTU RE organism [...] 08:30:05 08/24/20 23 08/27/2023 URINE CULTU RE ciprofloxaci n CIPROF LOXACI N RESIST ANT resistant Not Available [facility] (Centralized Electronic Ordering - All Locations) Patient Can Go To The Location Of Their Choice, 08/27/2023 08:30:05 08/24/20 23 08/27/2023 URINE CULTU RE ertapenem ERTAPE NEM SUSCEP TIBLE susceptib le Not Available [facility] (Centralized Electronic Ordering - All Locations) Patient Can Go To The Location Of Their Choice, [id number] 08/27/2023 08:30:05 08/24/2008/27/2023 URINE CULTU RE gentamicin GENTAM ICIN SUSCEP TIBLE susceptib le Not Available [facility] (Centralized Electronic Ordering - All Locations) Patient Can Go To The Location Of Their Choice, [id number] 08/27/2023 08:30:05 08/24/2008/27/2023 URINE CULTU RE levofloxacin [...] Go To The Location Of Their Choice, [id number] 08/27/2023 08:30:05 08/24/2008/27/2023 URINE CULTU RE trimeth/sulf amethox TRIMET H/SULF AMETHO X RESIST ANT resistant Not Available [facility] (Centralized Electronic Ordering - All Locations) Patient Can Go To The Location Of Their Choice, [id number] 08/27/2023 08:30:05 08/24/20 23 08/24/2023 gluco se, finge rstic k, blood Blood Glucose: mg/dl 161 Not Available Main - [facility] [address] [place] [address], [phone] 08/24/2023 16:10:47 08/24/20 23 08/24/2023 rapid flu (A+B) Flu negati ve Not Available Main - [facility] ed [address] [place] [address], [phone] 08/24/2023 15:58:49 08/24/20 23 08/24/2023 rapid SARS CoV 2 Ag, QL IA, respi rator y speci men rapid SARS CoV 2 Ag, QL IA, respiratory specimen negati ve Not Available Main - [facility] ed [address] [place] [address], [phone] 08/24/2023 15:58:48 08/24/20 23 08/24/2023 urina lysis , dipst ick Leukocytes trace Not Available Main - [facility] [address] [place] [address], [phone] 08/24/2023 15:58:31 08/24/20 23 08/24/2023 urina lysis , dipst ick Nitrite positi ve Not Available [facility] - [facility] ed [address] [place] [address], [phone] 08/24/2023 15:58:31 08/24/20 23 08/24/2023 urina lysis , dipst ick Blood trace Not Available Main - [facility] [address] [place] [address], [phone] 08/24/2023 15:58:31 11/27/19 25 11/26/2024 rapid SARS CoV 2 Ag, QL IA, respi rator y speci men rapid SARS CoV 2 Ag, QL IA, respiratory specimen negati ve Not Available [facility] - [facility] ed [address] [place] [address], [phone] 11/26/2024 11:08:56 11/27/1911/26/2024 rapid flu (A+B) Flu negati ve Not Available [facility] ed [address] [place] [address], [phone] 11/26/2024 11:08:54 Result Notes None recorded. Medical Equipment None Reported. Allergies Allergen ID Allergen Name Allergen Category Reaction Reaction Severity Criticality Documentation Date Start Date Code Code System Note Provider Name and Address Organization Details Recorded Time 3973 Product containin g penicilli n (product) medicatio n Not available Not available Not available 08/27/2023 [id number] SNOMED Not Available [facility] - production 03:45:48 Medications Name Sig Start [...] Ultra-Fine Short Pen Needle 31 gauge x 02/03 DIRECTED TO TEST BLOOD SUGAR active Not [...] 147 mm[Hg] 60 mm[Hg] Edenilson Ferguson MD [address] [place] [address],[address], [place], [phone] [place] [address] [employer] 3 15:25:38 Date Recorded Respiratory rate Oxygen saturation Oxygen saturation in Arterial blood by Pulse oximetry Body temperature Heart rate Systolic blood pressure Diastolic blood pressure Provider Name and Address Organization Details Last Updated DateTime 3 18 /min 99 % 99 % 99.6 [degF] 92 /min 147 mm[Hg] 60 mm[Hg] Not Available [employer] 3 16:49:26 Date Recorded Oxygen saturation Oxygen saturation in Arterial blood by Pulse oximetry Heart rate Respiratory rate Body temperature Systolic blood pressure Diastolic blood pressure Systolic blood pressure Diastolic blood pressure Provider Name and Address Organization Details Last Updated DateTime 5 93 % 93 % 121 /min 18 /min 99.2 [degF] 105 mm[Hg] 62 mm[Hg] 140 mm[Hg] 80 mm[Hg] Not Available [employer] 5 11:04:36 Social History None recorded. Functional Status None recorded. Mental Status None recorded. Family History Nothing Reported. Medical History No medical history recorded. Gynecological HistoryNo gynecological history recorded. Obstetrics History GPAL:G 0 P 0 0 0 0 Past Encounters Encounter ID Performer Location Encounter Start Date Encounter Closed Date Diagnosis/Indication Diagnosis SNOMED-CT Code Diagnosis ICD10 Code Diagnosis Note [id number] [facility] [address] [place] [phone] 08/24/2023 15:24:05 08/25/2023 09:32:22 Urinary symptoms 820271744 R39.9 Acute urin latisha tract infection 346254100 N39.0 [id number] [facility] [address] [place] [id number] 11/26/2024 10:35:26 11/26/2024 17:07:05 Altered mental status 028217307 R41.82 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 0755523229 96380 E11.65 Health Concerns Section Related Observation LastModified by Organization Detai ls LastModified Time None Recorded Concern Status LastModified by Organization Details LastModified Time None Recorded Advance Directives Directive None Recorded Payers Insurance Date Sequence Insurance Name Policy Number Policy Topete Covered Member ID Topete Member ID Guarantor Name 11/26/2024 [facility] ON OR AFTER 2022 - DUAL ELIGIBLE - [employer] OPT[employer] AND ONE [employer] (MEDICARE REPLACEMENT/AD VANTAGE - HMO) Amos Burroughs [id number] Amos Burroughs Notes Date Note Type Note Provider Name and Address Organization Details Recorded Time 08/24/2023 text/html This was a supervised home visit with software writer Laura Hendrickson. [facility] Nursing Assessment: Reason For [...] .................. .................. .................. .................. .................. .................. ............... Building Construction Inspector Note From Laura Hendrickson: Sent to a [...] unremarkable; Extremities: unremarkable; Skin: pink, warm, dry; [facility] consulted and orders rapid covid test, rapid flu test, and urine dip. Rapid covid test: neg; Rapid flu test: neg; Straight cath performed: urine: dark yellow, clear, concentrated; Urine dip: nitrites: positive; Full results: uploaded to [employer]; [facility] consulted and orders urine culture to be sent to [facility]. [facility] sends script to pt's pharmacy. Pt's family will tow picker prescription tonight. Red flags discussed. Family has no further questions. .................. .................. .................. .................. .................. .................. .................. ............... Disposition: Fulfilled Edenilson Ferguson MD [address] [facility],[address], [place], [address], [employer] 08/24/2023 18:58:41 11/26/2024 text/html CRC Nurse Triage [...] Type 2 PMH Reviewed at 11/26/2024 - :22 Allergies Reviewed at 11/26/2024 - :22 Comments: Additional PMH: Emphysema Rock Breaker verified the patient's name//address and phone number. Education Manager# [phone] used for triage assessment. Pt's daughter calling [...] emergency treatment if needed -Bethel Childs RN Building Construction Inspector Organization Information for [employer] Name: [employer] Address: [address] [place] [address], [place] [address], Beater Worker Helper: Primo ALEX No.: [id number] Building Construction Inspector POC Test Results from [facility] - ALS Blood Glucose Measurement (10:38:13) Blood Glucose: 214 mg/dL Rapid COVID antigen (10:49:38) COVID: - Rapid influenza antigen (10:49:39) Flu: - .................. .................. .................. .................. .................. .................. .................. ............... Building Construction Inspector Note From [facility]: Retty Medic was called to scene to evaluate [...] temp or 99.2. Pt has severe dementia, chadian speaking only, and very uncooperative. [facility] was consulted and a flu/covid test were run and came back negative. wanted bloodwork, which anyi attempted once on the non restricted arm, which was very scarred, Pt became combative grabbed and scratched at medic, and refused a second time. Without bloodwork, made the decision to have the pt go to the hospital where test could be more safely done. [facility] Lab Orders: glucose, fingerstick, blood: Performed rapid flu (A+B): Performed rapid SARS CoV 2 Ag, QL IA, respiratory specimen: Performed glucose, fingerstick, blood: Performed .................. .................. .................. .................. .................. .................. .................. ............... [facility] Consulted: Ely Leija .................. .................. .................. .................. .................. .................. .................. ............... Disposition: Fulfilled Ely Leija MD [address] [facility],[address] [facility], [place], [address], [employer] HERMOS[employer] 11/26/2024 12:41:01 OBGyn Episode No OBEpisode recorded.
--- OUTSIDE RECORDS SUMMARY | 2025-02-07 11:49 | XMS_ITS | Clinical Summary ---
Author Organization [address] [place] [address] Address [address] [place] [address] Phone Care Team Providers Care Marketing Sales Representative Name Role Phone Physician, Pcp Unknown Primary Care Provider Delicia vailable Allergies Active Allergy Reactions Criticality Noted Date Comments Penicillins 12/16/2024 Medications OneTouch Ultra Test test strip DIRECTED TO TEST BLOOD SUGAR ONCE A DAY 4 Active cholecalciferol (VITAMIN D-3) 50 mcg (2,000 unit) capsule Take 1 capsule (2,000 Units total) by mouth 1 (one) time each day. 5 Active Jardiance 10 mg tablet Take 1 tablet (10 mg total) by mouth 1 (one) time each day. 5 Active furosemide (LASIX) 20 mg tablet Take 1 tablet (20 mg total) by mouth 1 (one) time each day. 5 Active lactulose (CHRONULAC) solution TAKE 15ML BY MOUTH EVERY NIGHT AT BEDTIME NEEDED FOR CONSTIPATION 5 Active Tradjenta 5 mg tablet Take 1 tablet (5 mg total) by mouth 1 (one) time each day. 5 Active QUEtiapine (SEROquel) 50 mg tablet Take 1 tablet (50 mg total) by mouth 2 (two) times a day. 5 Active rosuvastatin (CRESTOR) 20 mg tablet Take 1 tablet (20 mg total) by mouth 1 (one) time each day. 5 Active solifenacin (VESICARE) 10 mg tablet Take 1 tablet (10 mg total) by mouth 1 (one) time each day. 4 Active traZODone (DESYREL) 100 mg tablet Take 1 tablet (100 mg total) by mouth at bedtime as needed. at bedtime for sleep Active Active Problems Problem Noted Date Diagnosed Date Right knee pain 12/16/2024 Essential hypertension 12/16/2024 UTI (urinary tract infection) 12/16/2024 Encounters Date Type Department Care Team Description 01/24/2025 2:00 PM EDT Consult Orthopedic Surgery [facility] [address] [phone] Loc Bo DPM Controlled type 2 diabetes with neuropathy ([facility] V24, [facility] V28) (Primary Dx); Pain in toes of both feet; Arthritis of both feet; Hammertoes of both feet; Dermatophytosis, nail from Last 3 Months Social History Tobacco Use Types Packs/Day Years Used Date Smoking Tobacco: Never Assessed Comments Unknown Sex and Gender Information Value Date Recorded Sex Assigned at Not on file Legal Sex Female 8:09 AM EST Gender Identity Not on file Sexual Orientation Not on file Last Filed Vital Signs Vital Sign Reading Time Taken Comments Blood Pressure - - Pulse - - Temperature - - Respiratory Rate - - Oxygen Saturation - - Inhaled Oxygen Concentration - - Weight 86.2 kg (190 lb) 01/24/2025 2:00 PM EDT Height 154.9 cm (5' 1 ) 01/24/2025 2:00 PM EDT Body Mass Index 35.9 01/24/2025 2:00 PM EDT Plan of Treatment Upcoming Encounters Date Type Department Care Team (Late st Contact Info) Description 04/26/2025 1:30 PM EDT Office Visit Orthopedic Surgery [facility] [address] [phone] Loc Bo DPM [address] [address] Health Maintenance Due Date Last Done Comments Diabetes: Annual GFR (Glomerular Filtration Rate) 1940 Diabetes: Annual Foot Exam 01/12/1950 Diabetes: Annual Retina Eye Exam 01/12/1950 Zoster Vaccines (1 of 2) 01/12/1990 RSV Immunization Adult Patients (1 - 1-dose 75+ series) 01/12/2015 COVID-19 Vaccine (2023-2 5 season) 2024 02/20/2021, 01/23/2021 Cholesterol Screening (Lipid Panel) 08/24/2024 Depression Screening 08/24/2024 Falls Risk Assessment 08/24/2024 Medicare Annual Wellness Visit 08/24/2024 Osteoporosis Screening (Bone Density Screening) 08/24/2024 Social Influencers of Health Screening 08/24/2024 Hypertension/CHF/CAD Annual BMP Blood Test 12/16/2024 Diabetes: Annual Urine Albumin-Creatinine Ratio (uACR) 01/25/2025 Diabetes: Blood Sugar Contro l Test (HGBA1C) 01/25/2025 Influenza Vaccine (Season Ended) 2025 11/05/2022, 09/01/2019, 07/17/2017 DTaP,Tdap,and Td Vaccines (3 - Td or Tdap) 09/01/2029 09/01/2019, 09/30/2017 Pneumococcal Vaccine: 50+ Years Completed 11/05/2022, 09/01/2019, 09/30/2017 HIB Vaccines Aged Out No longer eligi [...] age to complete this topic Meningococcal B Vaccine Aged Out No l onger eligible based on patient's age to complete this topic RSV Immunization Patients Under 20 months Aged Out No longer eligible b ased on patient's age to complete this topic Varicella Vaccines Aged Out No longer eligible based on patient's age to complete this topic Insurance MEDICARE Member Subscriber Plan / Payer (Ef fective 2019-Present) Name:Longoria Amos Burroughs Relation to Subscriber:Self Name:Longoria BurroughsAmos Payer ID:[id number] Group ID:[id number] Type:Not on file Address: [facility] [address] [phone] Care Teams Marketing Sales Representative Relationship Specialty Start Date End Date Physician, Pcp Unknown PCP - General 11/08/24
== END 2025-02-07 11:05 | disposition home or self-care (01) ==
LOC: HO.HMCH 10:34
PROVIDERS: PCP Internal Medicine; Visit Provider Internal Medicine
DX: E11.9 Type 2 diabetes mellitus without complications (principal); I10 Essential (primary) hypertension; M17.0 Bilateral primary osteoarthritis of knee; E78.5 Hyperlipidemia, unspecified; G30.9 Alzheimer's disease, unspecified; F02.80 Dementia in other diseases classified elsewhere, unspecified severity, without behavioral disturbance, psychotic disturbance, mood disturbance, and anxiety

== ENCOUNTER → 2025-02-07 10:34 | Outpatient (BNVA) | payer OTHER, SELFPAY | PROVIDERS: PCP Internal Medicine; Visit Provider Internal Medicine | DX: E11.9 Type 2 diabetes mellitus without complications (principal); F32.A Depression, unspecified; I10 Essential (primary) hypertension; M17.0 Bilateral primary osteoarthritis of knee; E78.5 Hyperlipidemia, unspecified; G30.9 Alzheimer's disease, unspecified; F02.80 Dementia in other diseases classified elsewhere, unspecified severity, without behavioral disturbance, psychotic disturbance, mood disturbance, and anxiety; Z79.899 Other long term (current) drug therapy | CPT/HCPCS: 83036; 96127; 99212 ==

== ENCOUNTER 2025-08-14 09:49 | Outpatient (AMB) | payer OTHER, SELFPAY ==
[2025-08-14 10:22] VITALS: BP 158/70; PULSE 78; RESP 18; O2SAT 99; BMI 35.0
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
--- OUTSIDE RECORDS SUMMARY | 2025-08-14 11:37 | XMS_ITS | Clinical Summary ---
Author Organization [address] [place] [address] Address [address] [place] [address] Phone Care Team Providers Care Manager Construction Name Role Phone Physician, Pcp Unknown Primary [...] hypertension 12/16/2024 UTI (urinary tract infection) 12/16/2024 Social History Tobacco Use Types Packs/Day Years [...] 01/24/2025 2:00 PM EDT Plan of Treatment Health Maintenance Due Date Last Done Comments Zoster Vaccines (1 of 2) 01/12/1990 RSV Immunization Adult Patients (1 - 1-dose 75+ series) 01/12/2015 Cholesterol Screening (Lipid Panel) 08/24/2024 Falls Risk Assessment 08/24/2024 Medicare Annual Wellness Visit 08/24/2024 Osteoporosis Screening (Bone Density Screening) 08/24/2024 Social Influencers of Health Screening 08/24/2024 Depression Screening 09/21/2024 Hypertension/CHF/CAD Annual BMP Blood Test 12/16/2024 COVID-19 Vaccine (3 - 2024-2 6 season) 2025 02/20/2021, 01/23/2021 Influenza Vaccine (#1) 2025 , 09/01/2019, 07/17/2017 DTaP,Tdap,and Td Vaccines (3 - [...] patient's age to complete this topic Insurance [employer] MEDICARE Member Subscriber Plan / Payer (Ef fective 2019-Present) Name:Amos Love Relation to Subscriber:Self Name:Amos Love Payer ID:[id number] Group ID:[id number] Type:Not on file Address: [facility] [address] [id number] Care Teams Manager Construction Relationship Specialty Start Date End Date Physician, Pcp Unknown PCP - General 11/08/24
--- OUTSIDE RECORDS SUMMARY | 2025-08-14 11:37 | XMS_ITS | Clinical Summary ---
Author Organization [facility] Address [address] [address] [place] [id number] Phone Care Team Providers Care Crystal Report Developer Name Role Phone Kati Huber MD Primary Care Provid er Allergies Active Allergy Reactions Criticality Noted Date Comments Penicillins 05/23/2022 Medications No known medications Social History Tobacco Use Types Packs/Day Years Used Date Smoking Tobacco: Never Assessed Education Answer Date Recorded Are you interested in more education? Not on luisito e 01/17/2023 Are you concerned about learning? Not on file 01/17/2023 No 01/17/2023 No 01/17/2023 Digital Access Answer Date Recorded No 02/17/2023 No 02/17/2023 Reliable internet access at home? Not on file 02/17/2023 Device with a working camera? Not on file Comments Unknown Sex and Gender Information Value Date Recorded Sex Assigned at Not on file Legal Sex Female 5:18 PM EDT Gender Identity Not on file Sexual Orientation Not on file Last Filed Vital Signs Vital Sign Reading Time Taken Comments Blood Pressure 141/61 05/23/2022 5:30 PM EDT Pulse 92 05/23/2022 5:30 PM EDT Temperature 36.3 C (97.3 F) 05/23/2022 5:30 PM EDT Respiratory Rate 18 05/23/2022 5:30 PM EDT Oxygen Saturation 97% 05/23/2022 5:30 PM EDT Inhaled Oxygen Concentration - - Weight 91.2 kg (201 lb) 05/23/2022 5:30 PM EDT Height 154.9 cm (5' 1 ) 05/23/2022 5:30 PM EDT Body Mass Index 37.98 05/23/2022 5:30 PM EDT Plan of Treatment Not on file Medical [place] [id number] [address] [id number] Care Teams Crystal Report Developer Relationship Specialty Start Date End Date Kati Huber MD [address] [place] [address] PCP - General Internal Medicine 05/23/22 Additional Source Comments The information contained in this document represents components of the legal health record. It is not the complete legal health record.[facility]
== END 2025-08-14 11:21 | disposition home or self-care (01) ==
LOC: HO.HMCH 09:50
PROVIDERS: PCP Internal Medicine; Visit Provider Internal Medicine
DX: Z00.00 Encounter for general adult medical examination without abnormal findings (principal); G30.9 Alzheimer's disease, unspecified; F02.80 Dementia in other diseases classified elsewhere, unspecified severity, without behavioral disturbance, psychotic disturbance, mood disturbance, and anxiety; E11.9 Type 2 diabetes mellitus without complications; Z13.9 Encounter for screening, unspecified; Z23 Encounter for immunization

== ENCOUNTER → 2025-08-14 09:49 | Outpatient (BNVA) | payer OTHER, SELFPAY | PROVIDERS: PCP Internal Medicine; Visit Provider Internal Medicine | DX: Z00.00 Encounter for general adult medical examination without abnormal findings (principal); E11.9 Type 2 diabetes mellitus without complications; G30.9 Alzheimer's disease, unspecified; F02.C0 Dementia in other diseases classified elsewhere, severe, without behavioral disturbance, psychotic disturbance, mood disturbance, and anxiety; R32 Unspecified urinary incontinence; R15.9 Full incontinence of feces; Z23 Encounter for immunization; Z99.3 Dependence on wheelchair | CPT/HCPCS: 83036; 90471; 90656; 96127; 99397 ==